=== PATIENT | female | born 1930 | race Caucasian/White ===

== ENCOUNTER 2016-09-13 11:21 | Inpatient (IN) | payer OTHER, MEDICARE ==
[~2016-09-13] VITALS: Ht 154.9 cm; Wt 84.1 kg
[~2016-09-13 11:21] MED LIST: ALBUAER INH; ASPEC81 PO; LVNIS40 SQ; MRLP17 PO; NTRGSL/4 UT; OMEP40CA PO; OXGN; POTA-335 PO; SERT-234 PO
[2016-09-13] MEDS ORDERED: ALBUT/IPRATROP 3MG/0.5MG NEB 3 ML VIAL INH STA (11:53)
[2016-09-13] MEDS ORDERED: METHYLPREDNISOLONE 125 MG VIAL IV STA (11:53)
[2016-09-13] MEDS ORDERED: SODIUM CHLORIDE 0.9% 1000ML 250 ML IV STA (11:53)
--- NOTE | 2016-09-13 12:32 | EMERGENCY ROOM VISIT NOTE ---
History Report prepared by Timmy: Jessica Garcia Under the Supervision of: Dr. Roel Tang M.D. First contact with patient: 11:46 Chief Complaint: SHORTNESS OF BREATH Stated Complaint: COUGH, SOB, COLD SX History of Present Illness The patient is a 86 year old female who presents to the Emergency Room with complaints of persistent SOB for the past 2 days. She was at the [facility] this morning and she was sent to the ED after her O2 sat was 88%. Her daughter says that the patient's O2 sat is usually low. She has oxygen at home for when she needs it, but she usually does not require it. She uses CPAP 4 L at night when she sleeps. The patient states that she always has SOB when she tries to do things, but lately it has become worse. The nasal cannula O2 is currently helping. She has had a non productive cough and congestion. She denies any fever, vomiting, diarrhea, or chest pain. She has not had pneumonia before. She has had bronchitis before. She has an inhaler at home. The patient has had her flu shot. Source of History: patient, family Onset: 2 days ago Position: other (global) Quality: other (SOB) Timing: other (persistent) Modifying Factors (Worsening): exertion Associated Symptoms: + cough, No chest pain, No diarrhea, No fevers, No vomiting Note: Pt reports congestion. Review of Systems See HPI for pertinent positives & negatives. A total of 10 systems reviewed and were otherwise negative. Past Medical & Surgical Medical Problems: (1) Ambulatory dysfunction (2) Anxiety (3) Anxiety State Nos (4) CAD (coronary artery disease) (5) Congestive Heart Failure Nos (6) Coronary Atherosclerosis Of [place] Coronary Vessel (7) Depression (8) Depressive Disorder Nec (9) Dyslipidemia (10) GERD (gastroesophageal reflux disease) (11) GERD (gastroesophageal reflux disease) (12) History of pacemaker (13) HTN (hypertension) (14) Hyperlipidemia Nec/Nos (15) Hypertension Nos (16) Hypertension Nos (17) Morbid Obesity (18) Obstructive Sleep Apnea (Adult) (Pediatric) (19) Old Myocardial Infarct (20) Paroxysmal atrial fibrillation (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 Social History Smoking Status: Never Smoker Drug Use: none Marital Status: Occupation Status: retired Current/Historical Medications Scheduled Amlodipine (Norvasc), 10 MG PO DAILY Atorvastatin (Lipitor), 1 TAB PO QAM Furosemide (Lasix), 40 MG PO QAM Lisinopril (Lisinopril), 20 MG PO DAILY Metoprolol Succinate (Toprol Xl), 1 TAB PO DAILY Oxygen (Oxygen), 4 LITERS NA HS Potassium Chloride (Micro-K Ext Rel), 20 MEQ PO DAILY Sertraline (Zoloft), 50 MG PO QID Scheduled PRN Albuterol Sulfate (Proventil Hfa), 2 PUFFS INH QID PRN for Shortness of Breath Clonazepam (Klonopin), 1 TAB PO 5XD PRN for Anxiety Mirtazapine Soltab (Remeron Soltab), 15 MG PO HS PRN for Sleep Nitroglycerin (Nitrostat), 0.4 MG UT UD PRN for Chest Pain Omeprazole (Prilosec), 40 MG PO DAILY PRN for Dyspepsia Oxycodone Ir (Roxicodone Ir), 5 MG PO Q4H PRN for Pain Allergies Coded Allergies: Promethazine (Verified Allergy, Intermediate, SHORTNESS OF BREATH, 09/13/16) Respiratory depression Salicylates (Verified Allergy, Unknown, PT WAS ON ASA PRIOR TO ADMIT., 09/13) Simvastatin (Verified Allergy, Unknown, 09/13/16) Physical Exam Vital Signs Date Time Temp Pulse Resp B/P Pulse Ox O2 Delivery O2 Flow Rate FiO2 09/13/16 13:30 60 18 118/73 97 Nebulizer 7.0 09/13/16 12:04 67 09/13/16 11:58 Nasal Cannula 2.0 94 09/13/16 11:51 64 16 115/94 95 Nasal Cannula 2.0 09/13/16 11:48 93 Nasal Cannula 2.0 09/13/16 11:48 89 Room Air 09/13/16 11:23 36.4 90 18 133/78 87 Room Air Physical Exam GENERAL: Patient is in no acute distress. HEENT: No acute trauma, normocephalic atraumatic, mucous membranes moist, mild nasal congestion, no scleral icterus. NECK: No stridor, no adenopathy, no meningismus, trachea is midline. LUNGS: Decreased breath sounds bilaterally, no wheezes, no rhonchi, breath sounds equal. No respiratory distress. HEART: Without murmurs gallops or rubs, regular rate and rhythm. ABDOMEN: Soft, nontender, bowel sounds positive, no hernias, no peritonitis. EXTREMITIES: No cyanosis or edema, full range of motion of all the joints without pain or difficulty, no signs for acute trauma. NEUROLOGIC: Oriented x 3, no acute motor or sensory deficits, no focal weakness. SKIN: No rash, no jaundice, no diaphoresis. Medical Decision & Procedures ER Provider Diagnostic Interpretation: X-ray results as stated below per interpretation by me and the radiologist: CHEST ONE VIEW PORTABLE CLINICAL HISTORY: EVALUATE RESPIRATORY DISTRESS. DYSPNEA COMPARISON STUDY: 04/11/2016 FINDINGS: Poor inspiratory volumes. Bipolar cardiac pacemaker. Possible minimal interstitial infiltrate left base. Lungs otherwise appear clear. IMPRESSION: Possible interstitial infiltrate left base. Otherwise negative study Electronically signed by: Mario Mccaryt M.D. 09/13/2016 12:38 PM Dictated Date/Time: 09/13/2016 12:38 PM Laboratory Results 09/13/16 12:15 Red Blood Count 4.18, Mean Corpuscular Volume 92.6, Mean Corpuscular Hemoglobin 31.3, Mean Corpuscular Hemoglobin Concent 33.9, Mean Platelet Volume 10.5, Neutrophils (%) (Auto) 74.4, Lymphocytes (%) (Auto) 12.4, Monocytes (%) (Auto) 11.5, Eosinophils (%) (Auto) 1.3, Basophils (%) (Auto) 0.2, Neutrophils # (Auto ) 6.12, Lymphocytes # (Auto) 1.02, Monocytes # (Auto) 0.95, Eosinophils # (Auto ) 0.11, Basophils # (Auto) 0.02 09/13/16 12:15 Test 09/13/16 12:15 White Blood Count 8.24 K/uL (4.8-10.8) Red Blood Count 4.18 M/uL (4.2-5.4) Hemoglobin 13.1 g/dL (12.0-16.0) Hematocrit 38.7 % (37-47) Mean Corpuscular Volume 92.6 fL (80-100) Mean Corpuscular Hemoglobin 31.3 pg (25-34) Mean Corpuscular Hemoglobin Concent 33.9 g/dl (32-36) Platelet Count 175 K/uL (130-400) Mean Platelet Volume 10.5 fL (7.4-10.4) Neutrophils (%) (Auto) 74.4 % Lymphocytes (%) (Auto) 12.4 % Monocytes (%) (Auto) 11.5 % Eosinophils (%) (Auto) 1.3 % Basophils (%) (Auto) 0.2 % Neutrophils # (Auto) 6.12 K/uL (1.4-6.5) Lymphocytes # (Auto) 1.02 K/uL (1.2-3.4) Monocytes # (Auto) 0.95 K/uL (0.11-0.59) Eosinophils # (Auto) 0.11 K/uL (0-0.5) Basophils # (Auto) 0.02 K/uL (0-0.2) RDW Standard Deviation 44.2 fL (36.4-46.3) RDW Coefficient of Variation 13.1 % (11.5-14.5) Immature Granulocyte % (Auto) 0.2 % Immature Granulocyte # (Auto) 0.02 K/uL (0.00-0.02) Prothrombin Time 10.7 SECONDS (9.0-12.0) Prothromb Time International Ratio 1.0 (0.9-1.1) Activated Partial Thromboplast Time 23.0 SECONDS (21.0-31.0) Partial Thromboplastin Ratio 0.9 Anion Gap 10.0 mmol/L (3-11) Est Creatinine Clear Calc Drug Dose 43.1 ml/min Estimated GFR () 64.9 Estimated GFR (Non- 56.0 BUN/Creatinine Ratio 17.8 (10-20) Calcium Level 8.2 mg/dl (8.5-10.1) Total Bilirubin 0.4 mg/dl (0.2-1) Aspartate Amino Transf (AST/SGOT) 20 U/L (15-37) Alanine Aminotransferase (ALT/SGPT) 15 U/L (12-78) Alkaline Phosphatase 128 U/L (45-117) Troponin I 0.033 ng/ml (0-0.045) Total Protein 7.0 gm/dl (6.4-8.2) Albumin 3.7 gm/dl (3.4-5.0) Globulin 3.3 gm/dl (2.5-4.0) Albumin/Globulin Ratio 1.1 (0.9-2) Influenza Type A Antigen Neg for Influ A (NEG) Influenza Type B Antigen Neg for Influ B (NEG) Laboratory results reviewed by me. Medications Administered Medications (Trade) Dose Ordered Sig/James Route Start Time Stop Time Status Last Admin Dose Admin Sodium Chloride (Nss 1000ml) 250 ml @ 999 mls/hr Q16M STAT IV 09/13/16 11:53 09/13/16 12:08 DC 09/13/16 13:30 999 MLS/HR Albuterol/ Ipratropium (Duoneb) 3 ml NOW STAT INH 09/13/16 11:53 09/13/16 11:56 DC 09/13/16 13:29 3 ML Methylprednisolone Sodium Succinate (Solu-Medrol IV) 80 mg NOW STAT IV 09/13/16 11:53 09/13/16 11:56 DC 09/13/16 13:29 80 MG Levofloxacin (Levaquin / D5W) 750 mg NOW STAT IV 09/13/16 12:46 09/13/16 12:47 DC 09/13/16 13:30 750 MG ECG Indication: SOB/dyspnea Rate (beats per minute): 60 Rhythm: other (atrial pacemaker) Findings: no acute ischemic change, no ectopy, other (old inferior infarct, possible old anterior infarct) ED Course 1147: The patient was evaluated in room B6. A complete history and physical exam was performed. 1153: Solu-Medrol IV 80 mg IV, Duoneb 3 ml INH, NSS 250 ml @ 999 mls/hr IV. 1246: Levofloxacin 750 mg IV. 1259: Upon reexamination the patient is resting comfortably. I discussed results and treatment plan with the patient. She verbalizes agreement and understanding. The patient will be evaluated for further management. 1321: I discussed the patient's case with Brenda Munoz PA-C [facility] Hospitalist service. The patient will be evaluated for further management. Medical Decision Differential diagnoses: pneumonia, bronchitis, CHF, exacerbation of COPD, anemia , electrolyte imbalance, cardiac ischemia, influenza. There is no leukocytosis or concerning anemia. No significant electrolyte abnormality, kidney failure or hepatitis. EKG shows an atrial pacemaker, no acute ischemia. Cardiac enzyme testing times one is not consistent with acute cardiac injury. Influenza testing is negative. Chest film shows a left lower lung infiltrate, no pneumothorax or CHF. Blood cultures are pending. The patient presents with cough, congestion and increasing dyspnea. She has an underlying history of COPD. She received a DuoNeb, IV Solu-Medrol and IV Levaquin. As she was hypoxic, she was placed on nasal cannula oxygen. Given her findings, admission/observation is warranted. I spoke to the patient and case management. The on-call hospitalist was consulted. Consults Time Called: 1302 Consulting Physician: RAJWINDER Bhatt hospitalist service Returned Call: 1321 Discussed the patient's case. The patient will be evaluated for further management. Impression Primary Impression: Hypoxia Additional Impressions: SOB (shortness of breath) Pneumonia Scribe Attestation The scribe's documentation has been prepared under my direction and personally reviewed by me in its entirety. I confirm that the note above accurately reflects all work, treatment, procedures, and medical decision making performed by me. Departure Information Dispostion Being Evaluated By Hospitalist Referrals Baltazar Strong M.D. (PCP) Patient Instructions My [facility] Problem Qualifiers
[2016-09-13 12:35] LABS: BASO % 0.2 %; BASO ABS # 0.02 K/uL (0-0.2); COMPLETE YES; EOS % 1.3 %; HEMATOCRIT 38.7 % (37-47); IG% 0.2 %; LYMPH % 12.4 %; LYMPH ABS # 1.02 K/uL (1.2-3.4); MEAN CELL VOLUME 92.6 fL (80-100); MEAN CORPUSCULAR HEMOGLOBIN 31.3 pg (25-34); MEAN CORPUSCULAR HGB CONC 33.9 g/dl (32-36); MEAN PLATELET VOLUME 10.5 fL (7.4-10.4); MONO % 11.5 %; NEUT % 74.4 %; PLATELET COUNT 175 K/uL (130-400); RED BLOOD COUNT 4.18 M/uL (4.2-5.4); WHITE BLOOD COUNT 8.24 K/uL (4.8-10.8)
--- NOTE | 2016-09-13 12:40 | DIAGNOSTIC IMAGING REPORT ---
CHEST ONE VIEW PORTABLE CLINICAL HISTORY: EVALUATE RESPIRATORY DISTRESS. DYSPNEA COMPARISON STUDY: 04/11/2016 FINDINGS: Poor inspiratory volumes. Bipolar cardiac pacemaker. Possible minimal interstitial infiltrate left base. Lungs otherwise appear clear. IMPRESSION: Possible interstitial infiltrate left base. Otherwise negative study Electronically signed by: Mario Mccarty M.D. 09/13/2016 12:38 PM Dictated Date/Time: 09/13/2016 12:38 PM
[2016-09-13 12:46] LABS: PARTIAL THROMBOPLASTIN RATIO 0.9; PROTHROMBIN TIME (PATIENT) 10.7 SECONDS (9.0-12.0)
[2016-09-13] MEDS ORDERED: LEVAQUIN 750MG / 150ML D5W IV STA (12:46)
[2016-09-13 12:48] LABS: BUN/CREATININE RATIO 17.8 (10-20); CALCIUM 8.2 mg/dl (8.5-10.1); CREATININE 0.92 mg/dl (0.60-1.20)
[2016-09-13 12:53] LABS: ALB/GLOB RATIO 1.1 (0.9-2)
[2016-09-13] MEDS ORDERED: ONDANSETRON INJ 2 MG/ML 2 ML VIAL IV PRN (14:00)
[2016-09-13] MEDS ORDERED: ACETAMINOPHEN 325 MG TAB PO PRN (14:00)
[2016-09-13] MEDS ORDERED: LEVALBUTEROL/IPRATROPIUM NEB INH PRN (14:15)
[2016-09-13] MEDS ORDERED: OXYCODONE HCL IR 5 MG TAB (IMMEDIATE RELEASE) PO PRN (14:15)
[2016-09-13] MEDS ORDERED: NITROGLYCERIN 0.4 MG SL PER TAB CHARGE UT PRN (14:15)
[2016-09-13] MEDS ORDERED: MIRTAZAPINE TAB 15 MG TAB PO PRN (14:15)
[2016-09-13] MEDS ORDERED: CLONAZEPAM 0.5 MG TAB PO PRN ×2 (14:15→17:44)
--- NOTE | 2016-09-13 14:44 | History and Physical ---
History & Physical Date & Time of Service: Sep 13, 2016 at 14:16 Chief Complaint: Cough, Sob, Cold Sx Primary Care Physician: Baltazar Strong M.D. History of Present Illness Source: patient, family (daughter at bedside), clinic records This is an 86 year old female with PMH of asthma, interstitial lung disease, sleep apnea on CPAP and nocturnal O2, CAD, tachy brooks syndrome s/p pacemaker, PAF not on anticoagulation, HTN, HL, and other problems listed below who presents to the ED for shortness of breath. Pt follows with Dr. Strong for primary care and Dr. Lee for pulmonology. Pt's daughter states patient has had a cough and yesterday developed a "cold" with sore throat, raspy voice, increased rhinorrhea, chills. Daughter states cough is wet sounding but not expectorating sputum. Since yesterday has dyspnea on exertion when making the bed etc. Patient was seen in [facility] urgent care today and found to have O2 sat of 88% and was sent to the ER. Pt states breathing is improved after neb treatment. Daughter reports increased urinary incontinence. Patient denies fever , ear pain, sinus pain, ARCHIBALD, aspiration, chest pain, abdominal pain, N/V/D, dysuria, frequency, edema, calf pain, confusion. Has been ambulating with walker and L knee immobilizer. No recent falls. Patient lives with daughter and son-in-law who has been sick with URI symptoms. No recent antibiotics, steroids , hospitalization. Past Medical/Surgical History Medical Problems: (1) Anxiety Status: Chronic (2) Anxiety State Nos Status: Chronic (3) CAD (coronary artery disease) Status: Chronic (4) Congestive Heart Failure Nos Status: Chronic (5) Coronary Atherosclerosis Of [place] Coronary Vessel Status: Chronic (6) Depression Status: Chronic (7) Depressive Disorder Nec Status: Chronic (8) Dyslipidemia Status: Chronic (9) GERD (gastroesophageal reflux disease) Status: Chronic (10) GERD (gastroesophageal reflux disease) Status: Chronic (11) History of pacemaker Status: Chronic (12) HTN (hypertension) Status: Chronic (13) Hyperlipidemia Nec/Nos Status: Chronic (14) Hypertension Nos Status: Chronic (15) Hypertension Nos Status: Chronic (16) Morbid Obesity Status: Chronic (17) Obstructive Sleep Apnea (Adult) (Pediatric) Status: Chronic (18) Old Myocardial Infarct Status: Chronic (19) Paroxysmal atrial fibrillation Status: Chronic (20) Sleep apnea Permanent Comment: on CPAP HS Status: Chronic Surgical Problems: (1) Cardiac Pacemaker In Situ Status: Chronic (2) Hip joint replacement status Status: Chronic (3) History of carpal tunnel surgery Permanent Comment: bilateral Status: Resolved (4) History of total right hip arthroplasty Permanent Comment: january 2010 Status: Resolved (5) Hx of total knee arthroplasty Permanent Comment: bilateral; L TKA 1993 and R TKA 1998 Status: Resolved (6) Knee Joint Replacement Status Status: Chronic (7) Previous back surgery Permanent Comment: HNP excision 1962 Status: Resolved Social History Smoking Status: Never Smoker Alcohol Use: none Housing status: lives with family (daughter and son in law) Occupational Status: retired Immunizations History of Influenza Vaccine: No Influenza Vaccine Date: Apr 09, 2009 History of Tetanus Vaccine?: No History of Pneumococcal: No Pneumococcal Date: Apr 09, 2009 History of Hepatitis B Vaccine: No Multi-Drug Resistant Organisms History of MDRO: No Allergies Coded Allergies: Promethazine (Verified Allergy, Intermediate, SHORTNESS OF BREATH, 09/13/16) Respiratory depression Salicylates (Verified Allergy, Unknown, PT WAS ON ASA PRIOR TO ADMIT., 09/13) Simvastatin (Verified Allergy, Unknown, 09/13/16) Home Medications Scheduled Amlodipine (Norvasc), 10 MG PO DAILY Atorvastatin (Lipitor), 1 TAB PO QAM Furosemide (Lasix), 40 MG PO QAM Lisinopril (Lisinopril), 20 MG PO DAILY Metoprolol Succinate (Toprol Xl), 1 TAB PO DAILY Oxygen (Oxygen), 4 LITERS NA HS Potassium Chloride (Micro-K Ext Rel), 20 MEQ PO DAILY Sertraline (Zoloft), 50 MG PO QID Scheduled PRN Albuterol Sulfate (Proventil Hfa), 2 PUFFS INH QID PRN for Shortness of Breath Clonazepam (Klonopin), 1 TAB PO 5XD PRN for Anxiety Mirtazapine Soltab (Remeron Soltab), 15 MG PO HS PRN for Sleep Nitroglycerin (Nitrostat), 0.4 MG UT UD PRN for Chest Pain Omeprazole (Prilosec), 40 MG PO DAILY PRN for Dyspepsia Oxycodone Ir (Roxicodone Ir), 5 MG PO Q4H PRN for Pain Review of Systems Constitutional: + chills, No fever, No weakness Eyes: No worsening of vision ENT: + nasal symptoms, + sore throat, No problem reported (no ear ache, sinus pain), No trouble swallowing Respiratory: + cough, + dyspnea on exertion, No sputum Cardiovascular: + palpitations (occasional, no increase from baseline), No chest pain, No edema Abdomen: No diarrhea, No nausea, No pain, No vomiting Musculoskeletal: + problem reported (chronic back pain, takes oxycodone PRN), No calf pain Genitourinary - Female: + urinary incontinence (increased from baseline), No dysuria, No urinary frequency Neurologic: No problem reported (no ARCHIBALD) Integumentary: No new/changing skin lesions, No rash Physical Exam Vital Signs Date Time Temp Pulse Resp B/P Pulse Ox O2 Delivery O2 Flow Rate FiO2 09/13/16 13:30 60 18 118/73 97 Nebulizer 7.0 09/13/16 12:04 67 09/13/16 11:58 Nasal Cannula 2.0 94 09/13/16 11:51 64 16 115/94 95 Nasal Cannula 2.0 09/13/16 11:48 93 Nasal Cannula 2.0 09/13/16 11:48 89 Room Air 09/13/16 11:23 36.4 90 18 133/78 87 Room Air General Appearance: WD/WN, no apparent distress, + pertinent finding (pleasant alert elderly female, not in distress) Head: normocephalic, atraumatic Eyes: normal inspection, PERRL, sclerae normal ENT: hearing grossly normal, TMs normal, pharynx normal Neck: supple, trachea midline Respiratory/Chest: no respiratory distress, no accessory muscle use, + rales ( left base), + wheezing (few end expiratory wheezes), + pertinent finding ( saturating low 90's on 2 liters NC) Cardiovascular: regular rate, rhythm, normal peripheral pulses, + systolic murmur Abdomen/GI: normal bowel sounds, non tender, soft Extremities/Musculoskelatal: no calf tenderness, normal capillary refill, no pedal edema, + pertinent finding (knee immobilizer on LLE) Neurologic/Psych: alert, normal mood/affect, oriented x 3, + pertinent finding (grossly nonfocal) Skin: normal color, warm/dry Diagnostics Laboratory Results Results Past 24 Hours Test 09/13/16 12:15 Range/Units White Blood Count 8.24 4.8-10.8 K/uL Red Blood Count 4.18 4.2-5.4 M/uL Hemoglobin 13.1 12.0-16.0 g/dL Hematocrit 38.7 37-47 % Mean Corpuscular Volume 92.6 80-100 fL Mean Corpuscular Hemoglobin 31.3 25-34 pg Mean Corpuscular Hemoglobin Concent 33.9 32-36 g/dl Platelet Count 175 130-400 K/uL Mean Platelet Volume 10.5 7.4-10.4 fL Neutrophils (%) (Auto) 74.4 % Lymphocytes (%) (Auto) 12.4 % Monocytes (%) (Auto) 11.5 % Eosinophils (%) (Auto) 1.3 % Basophils (%) (Auto) 0.2 % Neutrophils # (Auto) 6.12 1.4-6.5 K/uL Lymphocytes # (Auto) 1.02 1.2-3.4 K/uL Monocytes # (Auto) 0.95 0.11-0.59 K/uL Eosinophils # (Auto) 0.11 0-0.5 K/uL Basophils # (Auto) 0.02 0-0.2 K/uL RDW Standard Deviation 44.2 36.4-46.3 fL RDW Coefficient of Variation 13.1 11.5-14.5 % Immature Granulocyte % (Auto) 0.2 % Immature Granulocyte # (Auto) 0.02 0.00-0.02 K/uL Prothrombin Time 10.7 9.0-12.0 SECONDS Prothromb Time International Ratio 1.0 0.9-1.1 Activated Partial Thromboplast Time 23.0 21.0-31.0 SECONDS Partial Thromboplastin Ratio 0.9 Sodium Level 143 136-145 mmol/L Potassium Level 4.0 3.5-5.1 mmol/L Chloride Level 107 98-107 mmol/L Carbon Dioxide Level 26 21-32 mmol/L Anion Gap 10.0 3-11 mmol/L Blood Urea Nitrogen 16 7-18 mg/dl Creatinine 0.92 0.60-1.20 mg/dl Est Creatinine Clear Calc Drug Dose 43.1 ml/min Estimated GFR () 64.9 Estimated GFR (Non- 56.0 BUN/Creatinine Ratio 17.8 10-20 Random Glucose 101 70-99 mg/dl Calcium Level 8.2 8.5-10.1 mg/dl Total Bilirubin 0.4 0.2-1 mg/dl Aspartate Amino Transf (AST/SGOT) 20 15-37 U/L Alanine Aminotransferase (ALT/SGPT) 15 12-78 U/L Alkaline Phosphatase 128 45-117 U/L Troponin I 0.033 0-0.045 ng/ml Total Protein 7.0 6.4-8.2 gm/dl Albumin 3.7 3.4-5.0 gm/dl Globulin 3.3 2.5-4.0 gm/dl Albumin/Globulin Ratio 1.1 0.9-2 Influenza Type A Antigen Neg for Influ A NEG Influenza Type B Antigen Neg for Influ B NEG Microbiology Results 09/13/16 Blood Culture, Received Pending 09/13/16 Blood Culture, Received Pending Diagnostic Radiology CHEST ONE VIEW PORTABLE CLINICAL HISTORY: EVALUATE RESPIRATORY DISTRESS. DYSPNEA COMPARISON STUDY: 04/11/2016 FINDINGS: Poor inspiratory volumes. Bipolar cardiac pacemaker. Possible minimal interstitial infiltrate left base. Lungs otherwise appear clear. IMPRESSION: Possible interstitial infiltrate left base. Otherwise negative study EKG atrial paced rhythm with prolonged AV conduction, possible old inferior infarct , possible anterior infarct, no significant change from prior EKG as confirmed by supervisor instant potato processing read, qtc+ 430 Impression Assessment and Plan ASTHMA EXACERBATION With acute on chronic hypoxia (desaturated to 87% on RA in ER; usually only on nocturnal O2) Secondary to community acquired pneumonia CXR shows possible left base infiltrate Has underlying asthma, interstitial lung disease, and sleep apnea No evidence of sepsis- afebrile, HR and BP stable, no leukocytosis Treated with Levaquin, Solu-Medrol, Duoneb in ER Influenza antigen neg; check Influenza PCR Blood cultures pending; check sputum culture Continue empiric Levaquin, Xopenex-Atrovent nebs, PO prednisone Supplemental O2 per protocol and CPAP HS INCREASED URINARY INCONTINENCE Check UA and urine culture if indicated PAROXYSMAL ATRIAL FIBRILLATION TACHY BROOKS SYNDROME S/P PACEMAKER Currently in paced rhythm, rate controlled Continue metoprolol Not on anticoagulation due to fall risk per cardiology note CAD Stable Continue statin, beta meg, AVANI-I Aspirin intolerance as per records HYPERTENSION Stable Continue amlodipine, lisinopril, metoprolol, furosemide GRADE I DIASTOLIC DYSFUNCTION Appears euvolemic Continue furosemide 40 mg daily CHRONIC BACK PAIN On chronic oxycodone PRN DEPRESSION/ ANXIETY Continue sertraline, PRN Klonopin CODE STATUS DNR per my discussion with the patient DVT PROPHYLAXIS Lovenox SQ DISPOSITION Lives at home with daughter Jeni; discussed with her at bedside Follows with Dr. Strong for primary care Patient seen in collaboration with Dr. Klein. Please see her addendum. I have seen and examined this patient and agree with the assessment and plan above. Ms. Judge is doing better since the ER, she is still requiring oxygen which is reserved for nighttime only at home typically with CPAP. She is not tachypneic or febrile and appears comfortable. Vitals are stable, and her lungs are clear to auscultation with only the faintest crackles at the deep bases. No wheezing heard. Cont Levaquin and agree with switch to PO prednisone for now with h/o COPD and current illness with wheezing heard earlier. Patient and daughter very concerned that she won't get her clonazepam and has asked me to schedule this. They verbalized understanding regarding the risks of hospital delirium. Additionally, she reports that her urinary incontinence is chronic and there is no issue with fevers, chills, flank pain, dysuria, hematuria or urinary urgency. Alvina Klein, DO Level of Care Telemetry Resuscitation Status DO NOT RESUSCITATE VTE Prophylaxis VTE Risk Assessment Done? Y/N: Yes Risk Level: Moderate Given or contraindicated: Enoxaparin (Lovenox)SQ
[2016-09-13] MEDS ORDERED: LEVALBUTEROL/IPRATROPIUM NEB INH SCH (15:00)
[2016-09-13] MEDS ORDERED: LEVALBUTEROL 0.63MG/3 ML NEB INH PRN (16:30)
[2016-09-13] MEDS ORDERED: IPRATROPIUM BROMIDE NEB SOLN 0.02% 2.5 ML VIAL INH PRN (16:30)
[2016-09-13 17:00] VITALS: BP 114/66; PULSE 72; TEMP 36.9; Ht 154.9 cm; Wt 84.1 kg
[2016-09-13] MEDS: SERTRALINE HCL 50 MG TAB PO SCH ×2 (17:00→20:06)
[2016-09-13 19:08] VITALS: BP 112/66; PULSE 68; TEMP 36.5; O2SAT 92
[2016-09-13 20:00] VITALS: O2SAT 92
[2016-09-13] MEDS: ENOXAPARIN 40 MG/0.4 ML SYR SQ SCH (20:08)
[2016-09-13] MEDS: CLONAZEPAM 0.5 MG TAB PO SCH (20:09)
[2016-09-13 20:10] LABS: MANUAL MICROSCOPIC REQUIRED? NO; REVIEW REQ? NO; URINE APPEARANCE CLOUDY (CLEAR); URINE BILIRUBIN NEG (NEG); URINE COLOR YELLOW; URINE NITRITE NEG (NEG); URINE SPECIFIC GRAVITY 1.009 (1.000-1.030); UROBILINOGEN NEG (NEG); ZZUR CULT IF INDIC CLEAN CATCH NO
[2016-09-13 20:31] VITALS: PULSE 65; O2SAT 95
[2016-09-13] MEDS: IPRATROPIUM BROMIDE NEB SOLN 0.02% 2.5 ML VIAL INH PRN (20:31)
[2016-09-13] MEDS: LEVALBUTEROL 1.25MG/3ML NEB INH PRN (20:31)
[2016-09-13 20:34] VITALS: PULSE 65; O2SAT 95
[2016-09-13 20:41] VITALS: PULSE 65; O2SAT 95
[2016-09-13] MEDS ORDERED: IPRATROPIUM BROMIDE NEB SOLN 0.02% 2.5 ML VIAL INH SCH (21:00)
[2016-09-13] MEDS ORDERED: LEVALBUTEROL 1.25MG/0.5ML NEB INH SCH (21:00)
[2016-09-13 21:26] LABS: INFLUENZA A PCR Neg for Influ A (NEG); INFLUENZA B PCR Neg for Influ B (NEG)
[2016-09-14] VITALS (9 sets, daily range): BP systolic 93–143; BP diastolic 53–82; PULSE 56–77; TEMP 36.2–36.9; O2SAT 91–97
[2016-09-14] MEDS: POTASSIUM CHLORIDE 20 MEQ TABCR PO SCH (08:00)
[2016-09-14] MEDS: ATORVASTATIN 40 MG TAB PO SCH (08:01)
[2016-09-14] MEDS: FUROSEMIDE 40 MG TAB PO SCH (08:01)
[2016-09-14] MEDS: AMLODIPINE BESYLATE 5 MG TAB PO SCH (08:01)
[2016-09-14] MEDS: LISINOPRIL 20 MG TAB PO SCH (08:02)
[2016-09-14] MEDS: METOPROLOL SUCC 25MG EXT REL TAB PO SCH (08:02)
[2016-09-14] MEDS: PANTOprazole SOD 40 MG TAB PO SCH (08:02)
[2016-09-14] MEDS: SERTRALINE HCL 50 MG TAB PO SCH ×4 (08:03→21:44)
[2016-09-14] MEDS: CLONAZEPAM 0.5 MG TAB PO SCH (08:04)
[2016-09-14] MEDS: IPRATROPIUM BROMIDE NEB SOLN 0.02% 2.5 ML VIAL INH PRN (09:54)
[2016-09-14] MEDS: LEVALBUTEROL 1.25MG/3ML NEB INH PRN (09:54)
--- NOTE | 2016-09-14 18:41 | Progress Note ---
Internal Med Progress Note Date of Service: Sep 14, 2016. Provider Documentation: SUBJECTIVE: Patient is lying in her bed in no apparent distress. Feeling and breathing better. Occasional dry cough. Remains afebrile. Wants her home dose of Clonazepam. OBJECTIVE: Vital Signs-as noted below Examination General Appearance: Peasant alert elderly female, WD/WN, In no apparent distress, Head: normocephalic, atraumatic Eyes: normal inspection, PERRL, sclerae normal ENT: hearing grossly normal, TMs normal, pharynx normal Neck: supple, trachea midline Respiratory/Chest: no respiratory distress, no accessory muscle use, Fine rales left base), few end expiratory wheezes Cardiovascular: regular rate, rhythm, normal peripheral pulses, + systolic murmur Abdomen/GI: normal bowel sounds, non tender, soft Extremities/Musculoskeletal: no calf tenderness, normal capillary refill, no pedal edema, knee immobilizer on LLE Neurologic/Psych: alert, normal mood/affect, oriented x 3, Grossly nonfocal. Skin: normal color, warm/dry Lab data as noted below. ASSESSMENT & PLAN: Asthma Exacerbation with Pneumonia: Came in with acute on chronic hypoxia ( desaturated to 87% on RA in ER; usually only on nocturnal O2) Secondary to community acquired pneumonia. CXR shows possible left base infiltrate Has underlying asthma, interstitial lung disease, and sleep apnea. No evidence of sepsis- afebrile, HR and BP stable, no leukocytosis -Contique Levaquin (Day # 3). -Prednisone is being tapered gradually. -Bronchodilations as needed -Influenza antigen & Influenza PCR are negative. 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 Code Status: DNR per my discussion with the patient upon admission. DVT Prophylaxis: Sq Lovenox Disposition: Discharge once is clinically stable. Lives at home with daughter Jeni; discussed with her at bedside Follows with Dr. Strong for primary care Vital Signs: Date Time Temp Pulse Resp B/P Pulse Ox O2 Delivery O2 Flow Rate FiO2 09/15/16 08:00 Nasal Cannula 3.0 09/15/16 07:45 36.7 61 18 138/74 92 Room Air 09/15/16 07:30 61 138/74 09/15/16 00:15 CPAP 09/14/16 23:01 36.9 67 18 118/75 96 CPAP 09/14/16 21:40 70 95 3.0 09/14/16 19:35 36.6 63 22 113/70 92 Nasal Cannula 2.0 09/14/16 16:00 Nasal Cannula 2.0 09/14/16 15:47 36.6 67 20 106/55 95 Nasal Cannula 2.0 Lab Results: Results Past 24 Hours Test 09/15/16 06:45 Range/Units White Blood Count 8.41 4.8-10.8 K/uL Red Blood Count 4.10 4.2-5.4 M/uL Hemoglobin 12.8 12.0-16.0 g/dL Hematocrit 38.8 37-47 % Mean Corpuscular Volume 94.6 80-100 fL Mean Corpuscular Hemoglobin 31.2 25-34 pg Mean Corpuscular Hemoglobin Concent 33.0 32-36 g/dl Platelet Count 168 130-400 K/uL Mean Platelet Volume 10.8 7.4-10.4 fL Neutrophils (%) (Auto) 66.3 % Lymphocytes (%) (Auto) 18.5 % Monocytes (%) (Auto) 14.9 % Eosinophils (%) (Auto) 0.1 % Basophils (%) (Auto) 0.1 % Neutrophils # (Auto) 5.57 1.4-6.5 K/uL Lymphocytes # (Auto) 1.56 1.2-3.4 K/uL Monocytes # (Auto) 1.25 0.11-0.59 K/uL Eosinophils # (Auto) 0.01 0-0.5 K/uL Basophils # (Auto) 0.01 0-0.2 K/uL RDW Standard Deviation 47.1 36.4-46.3 fL RDW Coefficient of Variation 13.5 11.5-14.5 % Immature Granulocyte % (Auto) 0.1 % Immature Granulocyte # (Auto) 0.01 0.00-0.02 K/uL Sodium Level 146 136-145 mmol/L Potassium Level 3.4 3.5-5.1 mmol/L Chloride Level 110 98-107 mmol/L Carbon Dioxide Level 29 21-32 mmol/L Anion Gap 7.0 3-11 mmol/L Blood Urea Nitrogen 25 7-18 mg/dl Creatinine 0.96 0.60-1.20 mg/dl Est Creatinine Clear Calc Drug Dose 40.6 ml/min Estimated GFR () 61.6 Estimated GFR (Non- 53.2 BUN/Creatinine Ratio 26.4 10-20 Random Glucose 88 70-99 mg/dl Calcium Level 8.4 8.5-10.1 mg/dl
[2016-09-14] MEDS: ENOXAPARIN 40 MG/0.4 ML SYR SQ SCH (21:44)
[2016-09-14] MEDS: CLONAZEPAM 0.5 MG TAB PO PRN (21:45)
[2016-09-15] MEDS ORDERED: OXYCODONE HCL IR 5 MG TAB (IMMEDIATE RELEASE) PO PRN
[2016-09-15 07:19] LABS: BASO % 0.1 %; BASO ABS # 0.01 K/uL (0-0.2); COMPLETE YES; EOS % 0.1 %; HEMATOCRIT 38.8 % (37-47); IG% 0.1 %; LYMPH % 18.5 %; LYMPH ABS # 1.56 K/uL (1.2-3.4); MEAN CELL VOLUME 94.6 fL (80-100); MEAN CORPUSCULAR HEMOGLOBIN 31.2 pg (25-34); MEAN PLATELET VOLUME 10.8 fL (7.4-10.4); MONO % 14.9 %; NEUT % 66.3 %; PLATELET COUNT 168 K/uL (130-400); WHITE BLOOD COUNT 8.41 K/uL (4.8-10.8)
[2016-09-15 07:30] VITALS: BP 138/74; PULSE 61
[2016-09-15] MEDS: METOPROLOL SUCC 25MG EXT REL TAB PO SCH (07:34)
[2016-09-15] MEDS: ATORVASTATIN 40 MG TAB PO SCH (07:34)
[2016-09-15] MEDS: PANTOprazole SOD 40 MG TAB PO SCH (07:34)
[2016-09-15] MEDS: AMLODIPINE BESYLATE 5 MG TAB PO SCH (07:34)
[2016-09-15] MEDS: POTASSIUM CHLORIDE 20 MEQ TABCR PO SCH (07:35)
[2016-09-15] MEDS: FUROSEMIDE 40 MG TAB PO SCH (07:35)
[2016-09-15] MEDS: LISINOPRIL 20 MG TAB PO SCH (07:35)
[2016-09-15 07:45] VITALS: BP 138/74; PULSE 61; TEMP 36.7; O2SAT 92
[2016-09-15 08:09] LABS: BUN/CREATININE RATIO 26.4 (10-20); CALCIUM 8.4 mg/dl (8.5-10.1); CREATININE 0.96 mg/dl (0.60-1.20); POTASSIUM 3.4 mmol/L (3.5-5.1)
[2016-09-15] MEDS ORDERED: POTASSIUM CHLORIDE 20 MEQ TABCR PO ONE (08:45)
[2016-09-15] MEDS: SERTRALINE HCL 50 MG TAB PO SCH ×3 (12:29→20:08)
--- NOTE | 2016-09-15 12:59 | Progress Note ---
Internal Med Progress Note Date of Service: Sep 15, 2016. Provider Documentation: SUBJECTIVE: Patient is lying in her bed in no apparent distress. Feeling and breathing better. Occasional dry cough. Remains afebrile. Feels very anxious as she is worried about her who is in [facility]. C/O Loose BM overnight. No blood in stools. OBJECTIVE: Vital Signs-as noted below Examination General Appearance: Peasant alert elderly female, WD/WN, In no apparent distress, Head: normocephalic, atraumatic Eyes: normal inspection, PERRL, sclerae normal ENT: hearing grossly normal, TMs normal, pharynx normal Neck: supple, trachea midline Respiratory/Chest: no respiratory distress, no accessory muscle use, Fine rales left base), few end expiratory wheezes Cardiovascular: regular rate, rhythm, normal peripheral pulses, + systolic murmur Abdomen/GI: normal bowel sounds, non tender, soft Extremities/Musculoskeletal: no calf tenderness, normal capillary refill, no pedal edema, knee immobilizer on LLE Neurologic/Psych: alert, normal mood/affect, oriented x 3, Grossly nonfocal. Skin: normal color, warm/dry Lab data as noted below. ASSESSMENT & PLAN: Asthma Exacerbation with Pneumonia: Came in with acute on chronic hypoxia ( desaturated to 87% on RA in ER; usually only on nocturnal O2) Secondary to community acquired pneumonia. CXR shows possible left base infiltrate Has underlying asthma, interstitial lung disease, and sleep apnea. No evidence of sepsis- afebrile, HR and BP stable, no leukocytosis -Contique Levaquin (Day # 3). -Prednisone is being tapered gradually. -Bronchodilations as needed -Influenza antigen & Influenza PCR are negative. -Blood cultures negative so far -Supplemental O2 per protocol and CPAP HS Diarrhea: Need to R/O C. Diff -Started Lactobacillus Paroxysmal Atrial Fibrillation: Known Tachy Ritchie Syndrome, S/P PPM.Currently in paced rhythm, rate controlled -Continue Metoprolol -Not on anticoagulation due to fall risk per cardiology note History CAD: Stable -Continue statin, beta meg, AVANI-I -Aspirin intolerance as per records History HTN: Stable -Continue amlodipine, lisinopril, metoprolol, furosemide Grade I Diastolic Dysfunction: Appears euvolemic -Continue furosemide 40 mg daily Chronic Back Pain: On chronic oxycodone PRN History Depression/Anxiety: Continue sertraline, PRN Klonopin as per home doses. Code Status: DNR per my discussion with the patient upon admission. DVT Prophylaxis: Sq Lovenox Disposition: Discharge once is clinically stable. Lives at home with daughter Jeni; discussed with her at bedside Follows with Dr. Strong for primary care Vital Signs: Date Time Temp Pulse Resp B/P Pulse Ox O2 Delivery O2 Flow Rate FiO2 09/15/16 08:00 Nasal Cannula 3.0 09/15/16 07:45 36.7 61 18 138/74 92 Room Air 09/15/16 07:30 61 138/74 09/15/16 00:15 CPAP 09/14/16 23:01 36.9 67 18 118/75 96 CPAP 09/14/16 21:40 70 95 3.0 09/14/16 19:35 36.6 63 22 113/70 92 Nasal Cannula 2.0 09/14/16 16:00 Nasal Cannula 2.0 09/14/16 15:47 36.6 67 20 106/55 95 Nasal Cannula 2.0 Lab Results: Results Past 24 Hours Test 09/15/16 06:45 Range/Units White Blood Count 8.41 4.8-10.8 K/uL Red Blood Count 4.10 4.2-5.4 M/uL Hemoglobin 12.8 12.0-16.0 g/dL Hematocrit 38.8 37-47 % Mean Corpuscular Volume 94.6 80-100 fL Mean Corpuscular Hemoglobin 31.2 25-34 pg Mean Corpuscular Hemoglobin Concent 33.0 32-36 g/dl Platelet Count 168 130-400 K/uL Mean Platelet Volume 10.8 7.4-10.4 fL Neutrophils (%) (Auto) 66.3 % Lymphocytes (%) (Auto) 18.5 % Monocytes (%) (Auto) 14.9 % Eosinophils (%) (Auto) 0.1 % Basophils (%) (Auto) 0.1 % Neutrophils # (Auto) 5.57 1.4-6.5 K/uL Lymphocytes # (Auto) 1.56 1.2-3.4 K/uL Monocytes # (Auto) 1.25 0.11-0.59 K/uL Eosinophils # (Auto) 0.01 0-0.5 K/uL Basophils # (Auto) 0.01 0-0.2 K/uL RDW Standard Deviation 47.1 36.4-46.3 fL RDW Coefficient of Variation 13.5 11.5-14.5 % Immature Granulocyte % (Auto) 0.1 % Immature Granulocyte # (Auto) 0.01 0.00-0.02 K/uL Sodium Level 146 136-145 mmol/L Potassium Level 3.4 3.5-5.1 mmol/L Chloride Level 110 98-107 mmol/L Carbon Dioxide Level 29 21-32 mmol/L Anion Gap 7.0 3-11 mmol/L Blood Urea Nitrogen 25 7-18 mg/dl Creatinine 0.96 0.60-1.20 mg/dl Est Creatinine Clear Calc Drug Dose 40.6 ml/min Estimated GFR () 61.6 Estimated GFR (Non- 53.2 BUN/Creatinine Ratio 26.4 10-20 Random Glucose 88 70-99 mg/dl Calcium Level 8.4 8.5-10.1 mg/dl
[2016-09-15] MEDS ORDERED: LEVOFLOXACIN / D5W 750 MG in PREMIXED IN D5W 150 ML IV SCH (14:00)
[2016-09-15 15:34] VITALS: BP 103/66; PULSE 62; TEMP 36.6; O2SAT 96
[2016-09-15] MEDS: LACTOBACILLUS ACIDOPHILUS (FLORANEX) TAB PO SCH (17:31)
[2016-09-15] MEDS: ENOXAPARIN 40 MG/0.4 ML SYR SQ SCH (20:09)
[2016-09-15 21:17] VITALS: PULSE 84; O2SAT 96
[2016-09-15 23:09] VITALS: BP 111/71; PULSE 72; TEMP 36.7; O2SAT 96
[2016-09-16] VITALS: O2SAT 96
[2016-09-16] MEDS: CLONAZEPAM 0.5 MG TAB PO PRN ×4 (02:29→21:58)
[2016-09-16 07:40] VITALS: BP 122/77; PULSE 60; TEMP 36.6; O2SAT 97
--- NOTE | 2016-09-16 07:43 | Clinical Documentation Query ---
CLINICAL DOCUMENTATION QUERY 86-y/o male who presents with asthma exacerbation in setting of pneumonia. H&P states this patient as having diastolic dysfunction and being on Lasix daily In your clinical opinion is this patient being managed for: (X ) Chronic diastolic (Preserved EF) heart failure treated with daily PO Lasix ( ) Other explanation of clinical findings (Please Explain) ( ) Unable to determine (Please Define) ( ) Need to Discuss ( ) Not Agree The medical record reflects the following clinical findings, treatment, and risk factors. Clinical Indicators: As above Treatment: PO Lasix, Norvasc, Lisinopril, Risk Factors: Age, HTN, AVANI therapy Please clarify and document your clinical opinion in the progress notes and discharge summary. Terms such as "probable", "suspected", "likely", "questionable", "possible", or "still to be ruled out" are acceptable. IF IN AGREEMENT, YOU MUST DOCUMENT ABOVE DIAGNOSTIC STATEMENT IN DAILY PROGRESS NOTES AND DISCHARGE SUMMARY. This document is not part of the patient's record. Thank You, Tom Erwin, RN [phone]
[2016-09-16] MEDS: LISINOPRIL 20 MG TAB PO SCH (08:02)
[2016-09-16] MEDS: ATORVASTATIN 40 MG TAB PO SCH (08:02)
[2016-09-16] MEDS: LACTOBACILLUS ACIDOPHILUS (FLORANEX) TAB PO SCH ×3 (08:02→16:17)
[2016-09-16] MEDS: SERTRALINE HCL 50 MG TAB PO SCH ×4 (08:02→20:52)
[2016-09-16] MEDS: AMLODIPINE BESYLATE 5 MG TAB PO SCH (08:02)
[2016-09-16] MEDS: METOPROLOL SUCC 25MG EXT REL TAB PO SCH (08:02)
[2016-09-16] MEDS: PANTOprazole SOD 40 MG TAB PO SCH (08:03)
[2016-09-16] MEDS: FUROSEMIDE 40 MG TAB PO SCH (08:03)
[2016-09-16] MEDS: POTASSIUM CHLORIDE 20 MEQ TABCR PO SCH (08:03)
[2016-09-16 08:39] LABS: BASO % 0.2 %; BASO ABS # 0.02 K/uL (0-0.2); COMPLETE YES; EOS % 0.1 %; IG% 0.1 %; LYMPH % 18.7 %; LYMPH ABS # 1.54 K/uL (1.2-3.4); MEAN CORPUSCULAR HEMOGLOBIN 30.9 pg (25-34); MEAN CORPUSCULAR HGB CONC 33.3 g/dl (32-36); MEAN PLATELET VOLUME 10.3 fL (7.4-10.4); MONO % 15.6 %; NEUT % 65.3 %; PLATELET COUNT 178 K/uL (130-400); WHITE BLOOD COUNT 8.25 K/uL (4.8-10.8)
[2016-09-16 09:02] LABS: BUN/CREATININE RATIO 26.4 (10-20); CALCIUM 8.2 mg/dl (8.5-10.1); CREATININE 0.97 mg/dl (0.60-1.20); POTASSIUM 3.1 mmol/L (3.5-5.1)
--- NOTE | 2016-09-16 11:25 | Progress Note ---
Internal Med Progress Note Date of Service: Sep 16, 2016. Provider Documentation: SUBJECTIVE: Patient is lying in her bed in no apparent distress. Feeling and breathing better. Occasional dry cough. Remains afebrile. Feels very anxious as she is worried about her who is in [facility]. Continues to have Loose BM overnight. No blood in stools. OBJECTIVE: Vital Signs-as noted below Examination General Appearance: Peasant alert elderly female, WD/WN, In no apparent distress, Head: normocephalic, atraumatic Eyes: normal inspection, PERRL, sclerae normal ENT: hearing grossly normal, TMs normal, pharynx normal Neck: supple, trachea midline Respiratory/Chest: no respiratory distress, no accessory muscle use, Fine rales left base), few end expiratory wheezes Cardiovascular: regular rate, rhythm, normal peripheral pulses, + systolic murmur Abdomen/GI: normal bowel sounds, non tender, soft Extremities/Musculoskeletal: no calf tenderness, normal capillary refill, no pedal edema, knee immobilizer on LLE Neurologic/Psych: alert, normal mood/affect, oriented x 3, Grossly nonfocal. Skin: normal color, warm/dry Lab data as noted below. ASSESSMENT & PLAN: Asthma Exacerbation with Pneumonia: Came in with acute on chronic hypoxia ( desaturated to 87% on RA in ER; usually only on nocturnal O2) Secondary to community acquired pneumonia. CXR shows possible left base infiltrate Has underlying asthma, interstitial lung disease, and sleep apnea. No evidence of sepsis- afebrile, HR and BP stable, no leukocytosis -Contique Levaquin (Day # 4).Will stop tomorrow after 5 days of use. -Prednisone is being tapered gradually. -Bronchodilations as needed -Influenza antigen & Influenza PCR are negative. -Blood cultures negative so far -Supplemental O2 per protocol and CPAP HS Diarrhea: C. Diff remains pending. -Continue Lactobacillus -Started empiric Flagyl. Paroxysmal Atrial Fibrillation: Known Tachy Ritchie Syndrome, S/P PPM.Currently in paced rhythm, rate controlled -Continue Metoprolol -Not on anticoagulation due to fall risk per cardiology note History CAD: Stable -Continue statin, beta meg, AVANI-I -Aspirin intolerance as per records History HTN: Stable -Continue amlodipine, lisinopril, metoprolol, furosemide Grade I Diastolic CHF: Appears euvolemic -Continue furosemide 40 mg daily -Monitor I's & O's. Chronic Back Pain: On chronic oxycodone PRN History Depression/Anxiety: Continue sertraline, PRN Klonopin as per home doses. Code Status: DNR per my discussion with the patient upon admission. DVT Prophylaxis: Sq Lovenox Disposition: Discharge once is clinically stable. Lives at home with daughter Jeni; discussed with her at bedside Follows with Dr. Strong for primary care Vital Signs: Date Time Temp Pulse Resp B/P Pulse Ox O2 Delivery O2 Flow Rate FiO2 09/16/16 08:00 Nasal Cannula 3.0 09/16/16 07:40 36.6 60 18 122/77 97 Nasal Cannula 2.0 09/16/16 00:00 96 Room Air CPAP 09/15/16 23:09 36.7 72 16 111/71 96 CPAP 09/15/16 21:17 84 96 3.0 09/15/16 15:34 36.6 62 16 103/66 96 Lab Results: Results Past 24 Hours Test 09/16/16 08:02 Range/Units White Blood Count 8.25 4.8-10.8 K/uL Red Blood Count 4.30 4.2-5.4 M/uL Hemoglobin 13.3 12.0-16.0 g/dL Hematocrit 40.0 37-47 % Mean Corpuscular Volume 93.0 80-100 fL Mean Corpuscular Hemoglobin 30.9 25-34 pg Mean Corpuscular Hemoglobin Concent 33.3 32-36 g/dl Platelet Count 178 130-400 K/uL Mean Platelet Volume 10.3 7.4-10.4 fL Neutrophils (%) (Auto) 65.3 % Lymphocytes (%) (Auto) 18.7 % Monocytes (%) (Auto) 15.6 % Eosinophils (%) (Auto) 0.1 % Basophils (%) (Auto) 0.2 % Neutrophils # (Auto) 5.38 1.4-6.5 K/uL Lymphocytes # (Auto) 1.54 1.2-3.4 K/uL Monocytes # (Auto) 1.29 0.11-0.59 K/uL Eosinophils # (Auto) 0.01 0-0.5 K/uL Basophils # (Auto) 0.02 0-0.2 K/uL RDW Standard Deviation 45.7 36.4-46.3 fL RDW Coefficient of Variation 13.5 11.5-14.5 % Immature Granulocyte % (Auto) 0.1 % Immature Granulocyte # (Auto) 0.01 0.00-0.02 K/uL Sodium Level 145 136-145 mmol/L Potassium Level 3.1 3.5-5.1 mmol/L Chloride Level 110 98-107 mmol/L Carbon Dioxide Level 27 21-32 mmol/L Anion Gap 8.0 3-11 mmol/L Blood Urea Nitrogen 26 7-18 mg/dl Creatinine 0.97 0.60-1.20 mg/dl Est Creatinine Clear Calc Drug Dose 40.2 ml/min Estimated GFR () 60.9 Estimated GFR (Non- 52.5 BUN/Creatinine Ratio 26.4 10-20 Random Glucose 87 70-99 mg/dl Calcium Level 8.2 8.5-10.1 mg/dl Total Bilirubin 0.4 0.2-1 mg/dl Aspartate Amino Transf (AST/SGOT) 25 15-37 U/L Alanine Aminotransferase (ALT/SGPT) 18 12-78 U/L Alkaline Phosphatase 119 45-117 U/L Total Protein 7.0 6.4-8.2 gm/dl Albumin 3.5 3.4-5.0 gm/dl Globulin 3.5 2.5-4.0 gm/dl Albumin/Globulin Ratio 1.0 0.9-2 Microbiology Results 09/16/16 C.difficile Toxin B Gene (PCR), Received Pending
[2016-09-16] MEDS ORDERED: POTASSIUM CHLORIDE 20 MEQ TABCR PO ONE (11:30)
[2016-09-16] MEDS ORDERED: METRONIDAZOLE 500 MG TAB PO ONE (11:30)
[2016-09-16] MEDS ORDERED: LOPERAMIDE HCL 2 MG CAP PO ONE (13:45)
[2016-09-16 14:03] VITALS: PULSE 61; O2SAT 96
[2016-09-16] MEDS: IPRATROPIUM BROMIDE NEB SOLN 0.02% 2.5 ML VIAL INH PRN (14:03)
[2016-09-16] MEDS: LEVALBUTEROL 1.25MG/3ML NEB INH PRN (14:03)
[2016-09-16 15:46] VITALS: BP 109/72; PULSE 71; TEMP 36.6; O2SAT 92
[2016-09-16] MEDS ORDERED: COUGH DROP (SUGAR FREE) LOZ 24 LOZ/1 BOX PO PRN ×2 (16:45→17:00)
[2016-09-16] MEDS ORDERED: GUAIFENESIN/CODEINE 200MG/20MG 10ML UDC PO PRN (16:45)
[2016-09-16] MEDS ORDERED: COUGH DROP (SUGAR FREE) LOZ 24 LOZ/1 BOX PO ONE (17:00)
[2016-09-16] MEDS ORDERED: GUAIFENESIN/CODEINE 100MG/10MG 5ML UDC PO ONE (17:00)
[2016-09-16] MEDS ORDERED: METRONIDAZOLE 500 MG TAB PO SCH (20:00)
[2016-09-16] MEDS ORDERED: LOPERAMIDE HCL 2 MG CAP PO PRN (20:15)
[2016-09-16] MEDS: ENOXAPARIN 40 MG/0.4 ML SYR SQ SCH (20:53)
[2016-09-16] MEDS: LOPERAMIDE HCL 2 MG CAP PO PRN (20:57)
[2016-09-16 22:17] VITALS: PULSE 75; O2SAT 95
[2016-09-16 23:18] VITALS: BP 125/80; PULSE 61; TEMP 36.4; O2SAT 96
[2016-09-17 07:46] VITALS: BP 120/69; PULSE 62; TEMP 36.6; O2SAT 94
[2016-09-17 08:02] LABS: BASO % 0.5 %; BASO ABS # 0.04 K/uL (0-0.2); COMPLETE YES; EOS % 0.1 %; HEMATOCRIT 40.3 % (37-47); IG% 0.2 %; LYMPH % 20.5 %; LYMPH ABS # 1.81 K/uL (1.2-3.4); MEAN CELL VOLUME 92.9 fL (80-100); MEAN CORPUSCULAR HEMOGLOBIN 30.4 pg (25-34); MEAN CORPUSCULAR HGB CONC 32.8 g/dl (32-36); MEAN PLATELET VOLUME 10.4 fL (7.4-10.4); MONO % 13.3 %; NEUT % 65.4 %; PLATELET COUNT 170 K/uL (130-400); RED BLOOD COUNT 4.34 M/uL (4.2-5.4); WHITE BLOOD COUNT 8.82 K/uL (4.8-10.8)
--- NOTE | 2016-09-17 08:19 | DIAGNOSTIC IMAGING REPORT ---
SINGLE VIEW CHEST CLINICAL HISTORY: Follow-up pneumonia. FINDINGS: An AP, portable, upright chest radiograph is compared to study dated 09/13/2016.The examination is degraded by portable technique, apical lordotic positioning, and patient rotation. A 2-lead cardiac pacemaker is unchanged in position. The heart is enlarged and there is atherosclerotic calcification of the thoracic aorta. The pulmonary vasculature is noncongested. There are low lung volumes and bibasilar atelectasis. Elevation of the right hemidiaphragm is unchanged. No airspace consolidation or large pleural effusion is identified. No pneumothorax is seen. The skeletal structures are osteopenic. Advanced degenerative change is noted in the thoracic spine and left shoulder. IMPRESSION: 1. Cardiomegaly and cardiac pacemaker. There is no radiographic evidence of congestive failure. 2. Low lung volumes and bibasilar atelectasis. No airspace consolidation typical for pneumonia or large pleural effusion is identified. Electronically signed by: Roel Yang M.D. 09/17/2016 8:17 AM Dictated Date/Time: 09/17/2016 8:15 AM
[2016-09-17 08:37] LABS: BUN/CREATININE RATIO 24.1 (10-20); CREATININE 0.96 mg/dl (0.60-1.20); POTASSIUM 3.3 mmol/L (3.5-5.1)
[2016-09-17] MEDS: SERTRALINE HCL 50 MG TAB PO SCH ×4 (09:21→22:05)
[2016-09-17] MEDS: LISINOPRIL 20 MG TAB PO SCH (09:21)
[2016-09-17] MEDS: METOPROLOL SUCC 25MG EXT REL TAB PO SCH (09:21)
[2016-09-17] MEDS: LACTOBACILLUS ACIDOPHILUS (FLORANEX) TAB PO SCH ×3 (09:22→16:23)
[2016-09-17] MEDS: FUROSEMIDE 40 MG TAB PO SCH (09:23)
[2016-09-17] MEDS: PANTOprazole SOD 40 MG TAB PO SCH (09:23)
[2016-09-17] MEDS: POTASSIUM CHLORIDE 20 MEQ TABCR PO SCH (09:23)
[2016-09-17] MEDS: ATORVASTATIN 40 MG TAB PO SCH (09:24)
[2016-09-17] MEDS: AMLODIPINE BESYLATE 5 MG TAB PO SCH (09:24)
[2016-09-17] MEDS: CLONAZEPAM 0.5 MG TAB PO PRN ×3 (09:29→22:07)
[2016-09-17] MEDS ORDERED: NURSING VERBAL MED ORDER ONE (12:45)
[2016-09-17] MEDS ORDERED: LEVOFLOXACIN 750 MG TAB PO SCH (14:00)
[2016-09-17 15:10] VITALS: BP 120/73; PULSE 71; TEMP 36.6; O2SAT 93
--- NOTE | 2016-09-17 19:38 | Progress Note ---
Medicine Progress Note Date & Time of Visit: Sep 17, 2016 at 19:31. Subjective seen resting in bed, comfortable states she feels improved less dyspnea, cough denies chest pain, dizziness, abdominal pain, nausea no other symptoms Objective Last 8 Hrs Date Time Temp Pulse Resp B/P Pulse Ox O2 Delivery O2 Flow Rate FiO2 09/17/16 16:54 Nasal Cannula 2.0 09/17/16 15:10 36.6 71 20 120/73 93 Room Air Physical Exam: General-oriented x 3, not in distress, speaks in sentences with no effort Eyes- EOMI, anicteric Neck- supple, no JVD Lungs- clear to auscultation bilaterally Heart- normal rate, regular rhythm; no murmurs Abdomen- normal bowel sounds, soft, nontender, Extremities- no pretibial edema, no calf tenderness Neuro- alert, oriented x 3; no gross focal deficits Skin- warm & dry Laboratory Results: Last 24 Hours Test 09/17/16 07:27 White Blood Count 8.82 K/uL Red Blood Count 4.34 M/uL Hemoglobin 13.2 g/dL Hematocrit 40.3 % Mean Corpuscular Volume 92.9 fL Mean Corpuscular Hemoglobin 30.4 pg Mean Corpuscular Hemoglobin Concent 32.8 g/dl Platelet Count 170 K/uL Mean Platelet Volume 10.4 fL Neutrophils (%) (Auto) 65.4 % Lymphocytes (%) (Auto) 20.5 % Monocytes (%) (Auto) 13.3 % Eosinophils (%) (Auto) 0.1 % Basophils (%) (Auto) 0.5 % Neutrophils # (Auto) 5.77 K/uL Lymphocytes # (Auto) 1.81 K/uL Monocytes # (Auto) 1.17 K/uL Eosinophils # (Auto) 0.01 K/uL Basophils # (Auto) 0.04 K/uL RDW Standard Deviation 45.9 fL RDW Coefficient of Variation 13.5 % Immature Granulocyte % (Auto) 0.2 % Immature Granulocyte # (Auto) 0.02 K/uL Sodium Level 145 mmol/L Potassium Level 3.3 mmol/L Chloride Level 111 mmol/L Carbon Dioxide Level 23 mmol/L Anion Gap 11.0 mmol/L Blood Urea Nitrogen 23 mg/dl Creatinine 0.96 mg/dl Est Creatinine Clear Calc Drug Dose 40.6 ml/min Estimated GFR () 61.6 Estimated GFR (Non- 53.2 BUN/Creatinine Ratio 24.1 Random Glucose 85 mg/dl Calcium Level 8.0 mg/dl Magnesium Level 2.0 mg/dl Assessment & Plan Asthma Exacerbation with Pneumonia, Left Base - Came in with acute on chronic hypoxia (desaturated to 87% on RA in ER; usually only on nocturnal O2) Has underlying asthma, interstitial lung disease, and sleep apnea. - CXR possible left base pneumonia -Influenza antigen & Influenza PCR are negative. -Blood cultures negative so far - completed 5 days of Levaquin -Prednisone being tapered PRN Nebs Diarrhea: - C. Diff negative -Continue Lactobacillus -Started empiric Flagyl. Paroxysmal Atrial Fibrillation: Known Tachy Ritchie Syndrome, S/P PPM - stable -Continue Metoprolol -Not on anticoagulation due to fall risk per cardiology note History CAD - no cardiac symptoms -Continue statin, beta meg, AVANI-I -Aspirin intolerance as per records History HTN: Stable -Continue amlodipine, lisinopril, metoprolol, furosemide Grade I Diastolic CHF: - euvolemic -Continue furosemide 40 mg daily -Monitor I's & O's. Chronic Back Pain: On chronic oxycodone PRN History Depression/Anxiety: Continue sertraline, PRN Klonopin as per home doses. Code Status: DNR per my discussion with the patient upon admission. DVT Prophylaxis: Sq Lovenox Disposition possible d/c in AM repeat PT tomorrow Lives at home with daughter Jeni; discussed with her at bedside Follows with Dr. Strong for primary care Current Inpatient Medications: Current Inpatient Medications Medications (Trade) Dose Ordered Sig/James Route Start Time Stop Time Status Last Admin Dose Admin Acetaminophen (Tylenol Tab) 650 mg Q4H PRN PO 09/13/16 14:00 10/13/16 13:59 Ondansetron HCl (Zofran Inj) 4 mg Q6H PRN IV 09/13/16 14:00 10/13/16 13:59 Enoxaparin Sodium (Lovenox Inj) 40 mg Q24H SQ 09/13/16 21:00 10/13/16 20:59 09/16/16 20:53 40 MG Atorvastatin Calcium (Lipitor Tab) 80 mg QAM PO 09/14/16 09:00 10/14/16 08:59 09/17/16 09:24 80 MG Furosemide (Lasix Tab) 40 mg QAM PO 09/14/16 09:00 10/14/16 08:59 09/17/16 09:23 40 MG Lisinopril (Zestril Tab) 20 mg DAILY PO 09/14/16 09:00 09/17/16 09:21 20 MG Metoprolol Succinate (Toprol Xl Tab) 25 mg DAILY PO 09/14/16 09:00 10/14/16 08:59 09/17/16 09:21 25 MG Nitroglycerin (Nitrostat Tab) 0.4 mg UD PRN UT 09/13/16 14:15 10/13/16 14:14 Potassium Chloride (Klor-Con Tab) 20 meq DAILY PO 09/14/16 09:00 10/14/16 08:59 09/17/16 09:23 20 MEQ Sertraline HCl (Zoloft Tab) 50 mg QID PO 09/13/16 17:00 10/13/16 16:59 09/17/16 16:22 50 MG Mirtazapine (Remeron Tab) 15 mg HS PRN PO 09/13/16 14:15 10/13/16 14:14 09/13/16 22:57 15 MG Pantoprazole Sodium (Protonix Tab) 40 mg QAM PO 09/14/16 09:00 10/14/16 08:59 09/17/16 09:23 40 MG Ipratropium [place] (Atrovent 0.02% 0.5MG/2.5ML Neb) 0.5 mg Q6R PRN INH 09/13/16 17:42 10/13/16 17:41 09/16/16 14:03 0.5 MG Levalbuterol (Xopenex 1.25MG/ 3ML Neb) 1.25 mg Q6R PRN INH 09/13/16 17:45 10/13/16 17:44 09/16/16 14:03 1.25 MG Clonazepam (Klonopin Tab) 0.5 mg QID PRN PO 09/14/16 18:30 10/14/16 18:29 09/17/16 16:22 0.5 MG Oxycodone HCl (Roxicodone Immediate Rel Tab) 5 mg Q6 PRN PO 09/15/16 00:00 09/29/16 00:00 Lactobacillus Acidophilus (Floranex Tab) 4 tab TIDM PO 09/15/16 17:00 10/15/16 16:59 09/17/16 16:23 4 TAB Prednisone (PredniSONE TAB) 30 mg DAILY PO 09/16/16 08:00 10/16/16 07:59 09/17/16 09:22 30 MG Amlodipine Besylate (Norvasc Tab) 5 mg DAILY PO 09/17/16 08:00 10/17/16 07:59 09/17/16 09:24 5 MG Menthol (Nice Delilah) 1 delilah Q4 PRN PO 09/16/16 16:45 10/16/16 16:44 Codeine Phosphate/ Guaifenesin (Robitussin-AC Sugar Free Syrup) 10 ml Q6H PRN PO 09/16/16 16:45 10/16/16 16:44 Loperamide HCl (Imodium Cap) 2 mg Q6 PRN PO 09/16/16 20:15 10/16/16 20:14 09/16/16 20:57 2 MG
[2016-09-17] MEDS ORDERED: POTASSIUM CHLORIDE 20 MEQ TABCR PO ONE (21:00)
[2016-09-17] MEDS: ENOXAPARIN 40 MG/0.4 ML SYR SQ SCH (22:06)
[2016-09-17 22:12] VITALS: PULSE 71; O2SAT 94
[2016-09-18 07:07] VITALS: BP 163/71; PULSE 67; TEMP 36.8; O2SAT 92
[2016-09-18 07:51] LABS: BUN/CREATININE RATIO 22.8 (10-20); CREATININE 1.1 mg/dl (0.60-1.20); POTASSIUM 3.4 mmol/L (3.5-5.1)
[2016-09-18] MEDS: SERTRALINE HCL 50 MG TAB PO SCH ×3 (08:11→17:13)
[2016-09-18] MEDS: ATORVASTATIN 40 MG TAB PO SCH (08:12)
[2016-09-18] MEDS: METOPROLOL SUCC 25MG EXT REL TAB PO SCH (08:12)
[2016-09-18] MEDS: AMLODIPINE BESYLATE 5 MG TAB PO SCH (08:12)
[2016-09-18] MEDS: LACTOBACILLUS ACIDOPHILUS (FLORANEX) TAB PO SCH ×3 (08:12→17:13)
[2016-09-18] MEDS: POTASSIUM CHLORIDE 20 MEQ TABCR PO SCH (08:12)
[2016-09-18] MEDS: PANTOprazole SOD 40 MG TAB PO SCH (08:13)
[2016-09-18] MEDS: FUROSEMIDE 40 MG TAB PO SCH (08:13)
[2016-09-18] MEDS: LISINOPRIL 20 MG TAB PO SCH (08:13)
[2016-09-18] MEDS: CLONAZEPAM 0.5 MG TAB PO PRN ×2 (08:16→15:02)
[2016-09-18] MEDS: LOPERAMIDE HCL 2 MG CAP PO PRN ×2 (08:58→15:02)
[2016-09-18] MEDS ORDERED: POTASSIUM CHLORIDE 10 MEQ TABCR PO SCH (11:45)
[2016-09-18 15:14] VITALS: BP 108/68; PULSE 67; TEMP 36.6; O2SAT 93
[2016-09-18] MEDS ORDERED: LEVALBUTEROL/IPRATROPIUM NEB INH ONE (17:05)
[2016-09-18] MEDS ORDERED: IPRATROPIUM BROMIDE NEB SOLN 0.02% 2.5 ML VIAL INH ONE (17:15)
[2016-09-18] MEDS ORDERED: LEVALBUTEROL 1.25MG/0.5ML NEB INH ONE (17:15)
--- NOTE | 2016-09-18 17:15 | Progress Note ---
Medicine Progress Note Date & Time of Visit: Sep 18, 2016 at 17:06. Subjective patient seen resting in bed, comfortable daughter at bedside patient states she feels fine overall breathing has improved, still has some non productive cough diarrhea also improving, no abdominal pain denies other symptoms states she is ready and would like to be discharged today Objective Last 8 Hrs Date Time Temp Pulse Resp B/P Pulse Ox O2 Delivery O2 Flow Rate FiO2 09/18/16 16:00 Room Air 09/18/16 15:14 36.6 67 20 108/68 93 Room Air Physical Exam: General-oriented x 3, not in distress, speaks in sentences with no effort Neck- no JVD Lungs- clear breath sounds bilaterally Heart- normal rate, regular rhythm; no murmurs Abdomen- normal bowel sounds, soft, nontender Extremities- no pretibial edema, no calf tenderness Neuro- alert, oriented x 3; no gross focal deficits Skin- warm & dry Laboratory Results: Last 24 Hours Test 09/18/16 06:48 Sodium Level 145 mmol/L Potassium Level 3.4 mmol/L Chloride Level 111 mmol/L Carbon Dioxide Level 26 mmol/L Anion Gap 8.0 mmol/L Blood Urea Nitrogen 25 mg/dl Creatinine 1.10 mg/dl Est Creatinine Clear Calc Drug Dose 35.4 ml/min Estimated GFR () 52.3 Estimated GFR (Non- 45.1 BUN/Creatinine Ratio 22.8 Random Glucose 87 mg/dl Calcium Level 8.0 mg/dl Date/Time Source Procedure Growth Status 09/18/16 13:00 Stool C.difficile Toxin B Gene (PCR) - Final No C. difficile toxin B gene detected Complete Assessment & Plan Asthma Exacerbation with Possible Pneumonia, Left Base vs. Acute Bronchitis - Came in with acute on chronic hypoxia (desaturated to 87% on RA in ER; usually only on nocturnal O2) Has underlying asthma, interstitial lung disease, and sleep apnea. - CXR possible left base pneumonia -Influenza antigen & Influenza PCR are negative. -Blood cultures negative so far - completed 5 days of Levaquin -Prednisone being tapered Q6h Nebs - patient clinically improved, requesting discharge today, her daughter agreeable - discharge on: Prednisone taper course Nebs q6h PRN Hycodan Diarrhea: - C. 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 Code Status: DNR per discussion with the patient upon admission. DVT Prophylaxis: Sq Lovenox given Disposition d/c home with home health services ff up with PCP in 1 week Current Inpatient Medications: Current Inpatient Medications Medications (Trade) Dose Ordered Sig/James Route Start Time Stop Time Status Last Admin Dose Admin Acetaminophen (Tylenol Tab) 650 mg Q4H PRN PO 09/13/16 14:00 10/13/16 13:59 Ondansetron HCl (Zofran Inj) 4 mg Q6H PRN IV 09/13/16 14:00 10/13/16 13:59 Enoxaparin Sodium (Lovenox Inj) 40 mg Q24H SQ 09/13/16 21:00 10/13/16 20:59 09/17/16 22:06 40 MG Atorvastatin Calcium (Lipitor Tab) 80 mg QAM PO 09/14/16 09:00 10/14/16 08:59 09/18/16 08:12 80 MG Furosemide (Lasix Tab) 40 mg QAM PO 09/14/16 09:00 10/14/16 08:59 09/18/16 08:13 40 MG Lisinopril (Zestril Tab) 20 mg DAILY PO 09/14/16 09:00 09/18/16 08:13 20 MG Metoprolol Succinate (Toprol Xl Tab) 25 mg DAILY PO 09/14/16 09:00 10/14/16 08:59 09/18/16 08:12 25 MG Nitroglycerin (Nitrostat Tab) 0.4 mg UD PRN UT 09/13/16 14:15 10/13/16 14:14 Potassium Chloride (Klor-Con Tab) 20 meq DAILY PO 09/14/16 09:00 10/14/16 08:59 09/18/16 08:12 20 MEQ Sertraline HCl (Zoloft Tab) 50 mg QID PO 09/13/16 17:00 10/13/16 16:59 09/18/16 12:22 50 MG Mirtazapine (Remeron Tab) 15 mg HS PRN PO 09/13/16 14:15 10/13/16 14:14 09/13/16 22:57 15 MG Pantoprazole Sodium (Protonix Tab) 40 mg QAM PO 09/14/16 09:00 10/14/16 08:59 09/18/16 08:13 40 MG Ipratropium [place] (Atrovent 0.02% 0.5MG/2.5ML Neb) 0.5 mg Q6R PRN INH 09/13/16 17:42 10/13/16 17:41 09/16/16 14:03 0.5 MG Levalbuterol (Xopenex 1.25MG/ 3ML Neb) 1.25 mg Q6R PRN INH 09/13/16 17:45 10/13/16 17:44 09/16/16 14:03 1.25 MG Clonazepam (Klonopin Tab) 0.5 mg QID PRN PO 09/14/16 18:30 10/14/16 18:29 09/18/16 15:02 0.5 MG Oxycodone HCl (Roxicodone Immediate Rel Tab) 5 mg Q6 PRN PO 09/15/16 00:00 09/29/16 00:00 Lactobacillus Acidophilus (Floranex Tab) 4 tab TIDM PO 09/15/16 17:00 10/15/16 16:59 09/18/16 12:22 4 TAB Prednisone (PredniSONE TAB) 30 mg DAILY PO 09/16/16 08:00 10/16/16 07:59 09/18/16 08:11 30 MG Amlodipine Besylate (Norvasc Tab) 5 mg DAILY PO 09/17/16 08:00 10/17/16 07:59 09/18/16 08:12 5 MG Menthol (Nice Delilah) 1 delilah Q4 PRN PO 09/16/16 16:45 10/16/16 16:44 Codeine Phosphate/ Guaifenesin (Robitussin-AC Sugar Free Syrup) 10 ml Q6H PRN PO 4/10/17 16:45 10/16/16 16:44 09/18/16 11:16 10 ML Loperamide HCl (Imodium Cap) 2 mg Q6 PRN PO 09/16/16 20:15 10/16/16 20:14 09/18/16 15:02 2 MG
[2016-09-18] MEDS ORDERED: XPNINS1255 INH (17:24)
[2016-09-18] MEDS ORDERED: HYDR5SYP11 PO (17:24)
[2016-09-18] MEDS ORDERED: ATRINS INH (17:24)
[2016-09-18] MEDS ORDERED: IMD2X PO (17:24)
[2016-09-18] MEDS ORDERED: PRED10TA PO (17:24)
[2016-09-18 17:25] VITALS: BP 108/68; PULSE 67; TEMP 36.6; O2SAT 93
--- NOTE | 2016-09-18 17:30 | Discharge Summary ---
Discharge Summary Date of Service Sep 18, 2016. Discharge Summary Admission Date: Sep 13, 2016 at 14:03 Discharge Date: Sep 18, 2016 Discharge Disposition: Home with services Principal Diagnosis: Asthma Exacerbation with Possible Pneumonia, Left Base vs. Acute Bronchitis Secondary Diagnoses/Problems: Please refer to hospital course below. Procedures: CHEST ONE VIEW PORTABLE CLINICAL HISTORY: EVALUATE RESPIRATORY DISTRESS. DYSPNEA COMPARISON STUDY: 04/11/2016 FINDINGS: Poor inspiratory volumes. Bipolar cardiac pacemaker. Possible minimal interstitial infiltrate left base. Lungs otherwise appear clear. IMPRESSION: Possible interstitial infiltrate left base. Otherwise negative study Pending Studies/Follow-Up: repeat K on ff up Medication Reconciliation New Medications: Hydrocodone W/ Homatropine (Hycodan 5/1.5MG 5 Ml) 1 Syp Syp 5 ML PO Q6H PRN for Cough for 7 Days, #140 ML 0 Refills Prednisone Tab (Prednisone) 10 Mg Tab 10 MG PO UD, #5 TAB take 2 tabs po x 1 day, then take 1 tab po x 2 days, then take 1/2 tab po x 2 days, then STOP Ipratropium [place] (Ipratropium [place]) 0.5 Mg/2.5 Ml Nebu 0.5 MG INH Q6R for 7 Days, #30 UNIT 2 Refills may use every 2-4 hours as needed for shortness of breath or wheezing Levalbuterol (Levalbuterol) 1.25 Mg/0.5 Ml Nebu 1.25 MG INH Q6R for 7 Days, #30 UNITS 2 Refills may use every 2-4 hours as needed for shortness of breath or wheezing Loperamide Hcl (Imodium) 2 Mg Cap 2 MG PO UD PRN for Diarrhea, #20 CAP 1 Refill may take 1 cap after each loose bowel movement; do not take more than 8 caps per day Continued Medications: Amlodipine (Norvasc) 10 Mg Tab 10 MG PO DAILY, 0 Refills Atorvastatin (Lipitor) 80 Mg Tab 1 TAB PO QAM Clonazepam (Klonopin) 0.5 Mg Tab 1 TAB PO 5XD PRN for Anxiety Furosemide (Lasix) 40 Mg Tab 40 MG PO QAM, 0 Refills Lisinopril (Lisinopril) 20 Mg Tab 20 MG PO DAILY Metoprolol Succinate (Toprol Xl) 25 Mg Tab 1 TAB PO DAILY Mirtazapine Soltab (Remeron Soltab) 15 Mg Soltab 15 MG PO HS PRN for Sleep Nitroglycerin (Nitrostat) 0.4 Mg Tab 0.4 MG UT UD PRN for Chest Pain, 0 Refills Omeprazole (Prilosec) 40 Mg Cap 40 MG PO DAILY PRN for Dyspepsia, CAP Oxycodone Ir (Roxicodone Ir) 5 Mg Tab 5 MG PO Q4H PRN for Pain, 0 Refills Oxygen (Oxygen) Gas 4 LITERS NA HS CPAP/SLEEP APNEA Potassium Chloride (Micro-K Ext Rel) 20 Meq Cap 20 MEQ PO DAILY, 0 Refills Sertraline (Zoloft) 100 Mg Tab 50 MG PO QID, 0 Refills Discontinued Medications: Albuterol Sulfate (Proventil Hfa) 108 Mcg/Act Aer 2 PUFFS INH QID PRN for Shortness of Breath Admission Information HPI (per Admitting provider): This is an 86 year old female with PMH of asthma, interstitial lung disease, sleep apnea on CPAP and nocturnal O2, CAD, tachy ritchie syndrome s/p pacemaker, PAF not on anticoagulation, HTN, HL, and other problems listed below who presents to the ED for shortness of breath. Pt follows with Dr. Strong for primary care and Dr. Lee for pulmonology. Pt's daughter states patient has had a cough and yesterday developed a "cold" with sore throat, raspy voice, increased rhinorrhea, chills. Daughter states cough is wet sounding but not expectorating sputum. Since yesterday has dyspnea on exertion when making the bed etc. Patient was seen in [facility] urgent care today and found to have O2 sat of 88% and was sent to the ER. Pt states breathing is improved after neb treatment. Daughter reports increased urinary incontinence. Patient denies fever , ear pain, sinus pain, ARCHIBALD, aspiration, chest pain, abdominal pain, N/V/D, dysuria, frequency, edema, calf pain, confusion. Has been ambulating with walker and L knee immobilizer. No recent falls. Patient lives with daughter and son-in-law who has been sick with URI symptoms. No recent antibiotics, steroids , hospitalization. Physical Exam (per Admitting): General Appearance: WD/WN, no apparent distress, + pertinent finding ( pleasant alert elderly female, not in distress) Head: normocephalic, atraumatic Eyes: normal inspection, PERRL, sclerae normal ENT: hearing grossly normal, TMs normal, pharynx normal Neck: supple, trachea midline Respiratory/Chest: no respiratory distress, no accessory muscle use, + rales (left base), + wheezing (few end expiratory wheezes), + pertinent finding ( saturating low 90's on 2 liters NC) Cardiovascular: regular rate, rhythm, normal peripheral pulses, + systolic murmur Abdomen/GI: normal bowel sounds, non tender, soft Extremities/Musculoskelatal: no calf tenderness, normal capillary refill, no pedal edema, + pertinent finding (knee immobilizer on LLE) Neurologic/Psych: alert, normal mood/affect, oriented x 3, + pertinent finding (grossly nonfocal) Skin: normal color, warm/dry Hospital Course Asthma Exacerbation with Possible Pneumonia, Left Base vs. Acute Bronchitis - Came in with acute on chronic hypoxia (desaturated to 87% on RA in ER; usually only on nocturnal O2) Has underlying asthma, interstitial lung disease, and sleep apnea. - CXR possible left base pneumonia -Influenza antigen & Influenza PCR are negative. -Blood cultures negative so far - completed 5 days of Levaquin -Prednisone being tapered Q6h Nebs - patient clinically improved, requesting discharge today, her daughter agreeable - discharge on: Prednisone taper course Nebs q6h PRN Hycodan Diarrhea: - C. 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 Code Status: DNR per discussion with the patient upon admission. DVT Prophylaxis: Sq Lovenox given Disposition d/c home with home health services ff up with PCP in 1 week Total time spent on discharge = 50 minutes This includes examination of the patient, discharge planning, medication reconciliation, and communication with other providers. Discharge Instructions Discharge Instructions Date of Service Sep 18, 2016. Admission Reason for Admission: Hypoxia, Pneumonia Discharge Discharge Diagnosis / Problem: ACUTE ASTHMA EXACERBATION SECONDARY TO ACUTE BRONCHITIS VS. PNEUMONIA Discharge Goals Goal(s): Diagnostic testing, Therapeutic intervention Activity Recommendations Activity Limitations: as noted below (NO HEAVY EXERTION UNTIL RE-EVALUATED BY PRIMARY CARE PHYSICIAN) . Instructions / Follow-Up Instructions / Follow-Up PLEASE REVIEW YOUR NEW MEDICATION LIST AND FOLLOW INSTRUCTIONS CAREFULLY. CALL PRIMARY CARE PHYSICIAN OR RETURN TO ER IMMEDIATELY IF WITH RECURRENCE OF SYMPTOMS. FOLLOW UP WITH Current Hospital Diet Patient's current hospital diet: AHA Diet (Heart Healthy) Discharge Diet Recommended Diet: AHA Diet (Heart Healthy) Pending Studies Studies pending at discharge: yes List of pending studies: Repeat potassium level on follow up with Dr. Ovalles Medical Emergencies . Who to Call and When: Medical Emergencies: If at any time you feel your situation is an emergency, please call 911 immediately. . Non-Emergent Contact Non-Emergency issues call your: Primary Care Provider Call Non-Emergent contact if: you have a fever, you have any medication questions . Past History Medical & Surgical History: (1) Hypoxia (2) Pneumonia (3) CAD (coronary artery disease) (4) Sleep apnea (5) Depression (6) Anxiety (7) Paroxysmal atrial fibrillation (8) History of pacemaker (9) GERD (gastroesophageal reflux disease) (10) HTN (hypertension) (11) Dyslipidemia (12) Ambulatory dysfunction (13) Farideh-prosthetic femur fracture at tip of prosthesis (14) Pneumonia (15) SOB (shortness of breath) (16) Hx of total knee arthroplasty (17) History of carpal tunnel surgery (18) Previous back surgery (19) History of total right hip arthroplasty . "Provider Documentation" section prepared by Ken Tavera. VTE Core Measure Inpt VTE Proph given/why not?: Enoxaparin (Lovenox)SQ
[2016-09-18 17:31] VITALS: PULSE 87; O2SAT 94
[2016-09-18] MEDS ORDERED: IPRATROPIUM BROMIDE NEB SOLN 0.02% 2.5 ML VIAL INH SCH (21:00)
[2016-09-18] MEDS ORDERED: LEVALBUTEROL/IPRATROPIUM NEB INH SCH (21:00)
[2016-09-18] MEDS ORDERED: LEVALBUTEROL 1.25MG/0.5ML NEB INH SCH (21:00)
[2016-10-04] MEDS ORDERED: MIRT15TA2 PO (10:56)
[2016-10-04] MEDS ORDERED: OMEP40CA41 PO (14:13)
[2016-10-04] MEDS ORDERED: OXYC1TAB3 PO (14:43)
[2016-10-04] MEDS ORDERED: FRS/40 PO (15:20)
[2016-10-04] MEDS ORDERED: AMLO-114 PO (16:52)
== END 2016-09-18 18:24 | disposition home health service (06) | DRG 194 ==
LOC: ENRESERVTM → ENRESERVDT → C.EDB 11:22 → C.2T 14:03 → C.MS4W 09-14 18:29
PROVIDERS: ADMIT Hospitalist; ATTEND Internal Medicine
DX: J18.9 Pneumonia, unspecified organism (principal); J45.901 Unspecified asthma with (acute) exacerbation; J84.9 Interstitial pulmonary disease, unspecified; I50.32 Chronic diastolic (congestive) heart failure; Z99.81 Dependence on supplemental oxygen; I25.10 Atherosclerotic heart disease of native coronary artery without angina pectoris; Z95.0 Presence of cardiac pacemaker; I48.0 Paroxysmal atrial fibrillation; I10 Essential (primary) hypertension; E78.5 Hyperlipidemia, unspecified; F41.9 Anxiety disorder, unspecified; K21.9 Gastro-esophageal reflux disease without esophagitis; E66.01 Morbid (severe) obesity due to excess calories; Z68.35 Body mass index [BMI] 35.0-35.9, adult; I25.2 Old myocardial infarction; G47.33 Obstructive sleep apnea (adult) (pediatric); Z96.641 Presence of right artificial hip joint; Z96.653 Presence of artificial knee joint, bilateral; Z88.8 Allergy status to other drugs, medicaments and biological substances; Z79.899 Other long term (current) drug therapy; R32 Unspecified urinary incontinence; F32.9 Major depressive disorder, single episode, unspecified; Z66 Do not resuscitate; G89.29 Other chronic pain; M54.9 Dorsalgia, unspecified; J20.9 Acute bronchitis, unspecified; R09.02 Hypoxemia

== ENCOUNTER 2016-10-04 18:16 | Emergency (ER) | payer OTHER, MEDICARE ==
[~2016-10-04] VITALS: Ht 154.9 cm; Wt 86.2 kg
[~2016-10-04 18:16] MED LIST changes: -ALBUAER INH; +AMLO-114 PO; -ASPEC81 PO; +ATRINS INH; +FRS/40 PO; +HYDR5SYP11 PO; +IMD2X PO; -LVNIS40 SQ; +MIRT15TA2 PO; -MRLP17 PO; -OMEP40CA PO; +OMEP40CA41 PO; +OXYC1TAB3 PO; +PRED10TA PO; +XPNINS1255 INH
[2016-10-04 18:20] VITALS: TEMP 36.6; Ht 154.9 cm; Wt 86.2 kg
--- NOTE | 2016-10-04 18:59 | EMERGENCY ROOM VISIT NOTE ---
History Report prepared by Timmy: Kwan Ashley Under the Supervision of: Dr. Roel Tang M.D. First contact with patient: 18:46 Chief Complaint: SWELLING TO EXTREMITY Stated Complaint: SWOLLEN FACE History of Present Illness The patient is an 86 year old female who presents to the Emergency Room with complaints of swelling around her mouth and face that began this morning, 9 hours prior to arrival. The patient has had three episodes of this swelling over the past three months, but this episode is the most severe. The patient experienced the swelling roughly 1-2 hours after taking her daily AVANI inhibitor , Lisinopril. The patient has been taking Lisinopril for several years without any issues, but has noted that her facial swelling occurred after taking her Lisinopril. She denies any recent fevers or vomiting. She does feel slightly nauseated, but is admittedly nervous about her swelling. Source of History: patient, family Onset: 9 hours GLASS BLOCK BENDER Position: lip (Mouth ) Quality: other (Swelling, reaction) Associated Symptoms: + nausea, No fevers, No vomiting Review of Systems See HPI for pertinent positives & negatives. A total of 10 systems reviewed and were otherwise negative. Past Medical & Surgical Medical Problems: (1) Ambulatory dysfunction (2) Anxiety (3) Anxiety State Nos (4) CAD (coronary artery disease) (5) Congestive Heart Failure Nos (6) Coronary Atherosclerosis Of [place] Coronary Vessel (7) Depression (8) Depressive Disorder Nec (9) Dyslipidemia (10) GERD (gastroesophageal reflux disease) (11) GERD (gastroesophageal reflux disease) (12) History of pacemaker (13) HTN (hypertension) (14) Hyperlipidemia Nec/Nos (15) Hypertension Nos (16) Hypertension Nos (17) Morbid Obesity (18) Obstructive Sleep Apnea (Adult) (Pediatric) (19) Old Myocardial Infarct (20) Paroxysmal atrial fibrillation (21) Farideh-prosthetic femur fracture at tip of prosthesis (22) Pneumonia (23) Sleep apnea Surgical Problems: (1) Cardiac Pacemaker In Situ (2) Hip joint replacement status (3) History of carpal tunnel surgery (4) History of total right hip arthroplasty (5) Hx of total knee arthroplasty (6) Knee Joint Replacement Status (7) Previous back surgery Family History No pertinent family history secondary to age. Social History Smoking Status: Never Smoker Smokeless Tobacco Use: No Drug Use: none Occupation Status: retired Current/Historical Medications Scheduled Amlodipine (Norvasc), 10 MG PO DAILY Atorvastatin (Lipitor), 1 TAB PO QAM Furosemide (Lasix), 40 MG PO QAM Ipratropium [place] (Ipratropium [place]), 0.5 MG INH Q6R Levalbuterol (Levalbuterol), 1.25 MG INH Q6R Lisinopril (Lisinopril), 20 MG PO DAILY Metoprolol Succinate (Toprol Xl), 1 TAB PO DAILY Oxygen (Oxygen), 4 LITERS NA HS Potassium Chloride Microencaps (Potassium Chloride Er), 20 MEQ PO DAILY Prednisone Tab (Prednisone), 10 MG PO UD Sertraline (Zoloft), 50 MG PO BID Scheduled PRN Clonazepam (Klonopin), 1 TAB PO 5XD PRN for Anxiety Hydrocodone W/ Homatropine (Hycodan 5/1.5MG 5 Ml), 5 ML PO Q6H PRN for Cough Loperamide Hcl (Imodium), 2 MG PO UD PRN for Diarrhea Mirtazapine Soltab (Remeron Soltab), 15 MG PO HS PRN for Sleep Nitroglycerin (Nitrostat), 0.4 MG UT UD PRN for Chest Pain Omeprazole (Prilosec), 40 MG PO DAILY PRN for Dyspepsia Oxycodone Ir (Roxicodone Ir), 5 MG PO Q4H PRN for Pain Allergies Coded Allergies: Promethazine (Verified Allergy, Intermediate, SHORTNESS OF BREATH, 09/13/16) Respiratory depression Salicylates (Verified Allergy, Unknown, PT WAS ON ASA PRIOR TO ADMIT., 09/13) Simvastatin (Verified Allergy, Unknown, 09/13/16) Physical Exam Vital Signs Date Time Temp Pulse Resp B/P Pulse Ox O2 Delivery O2 Flow Rate FiO2 10/04/16 19:49 66 141/79 10/04/16 19:04 70 16 143/79 92 Room Air 10/04/16 18:20 36.6 80 20 179/92 90 Room Air Physical Exam GENERAL: Patient is in no acute distress. HEENT: No facial cellulitis. Mucous membranes are moist, both upper and lower lips are edematous, tongue is not swollen, floor of the mouth is not swollen. Posterior pharynx is not swollen. NECK: No stridor, no adenopathy, no meningismus, trachea is midline. LUNGS: Clear to auscultation bilaterally, no wheeze, no rhonchi, breath sounds equal. HEART: 3/6 systolic murmur with a regular rate and rhythm. ABDOMEN: Soft, nontender, bowel sounds positive, no hernias, no peritonitis. EXTREMITIES: No cyanosis or edema, full range of motion of all the joints without pain or difficulty, no signs for acute trauma. NEUROLOGIC: Oriented x 3, no acute motor or sensory deficits, no focal weakness. SKIN: No rash, no jaundice, no diaphoresis. Medical Decision & Procedures Medications Administered Medications (Trade) Dose Ordered Sig/James Route Start Time Stop Time Status Last Admin Dose Admin Diphenhydramine HCl (Benadryl Cap) 25 mg NOW ONCE PO 10/04/16 19:00 10/04/16 19:01 DC 10/04/16 19:03 25 MG ED Course 1845: The patient was evaluated in room C3. A complete history and physical exam was performed. 1899: Ordered Benadryl 25 mg PO. 1924: I discussed the case with Dr. Angely Lainez PCP, who is covering for [facility] outpatient. He suggests not doing anything at this time, aside from stopping the AVANI inhibitor. 1940: I reevaluated the patient, and discussed results and discharge instructions: she verbalized understanding and agreement. The patient is ready for discharge. Medical Decision Differential Diagnosis include; medication reaction, allergic reaction, airway compromise, posterior pharyngeal swelling, insect sting, angioedema. The patient presents with lip swelling. This has happened before intermittently and today's event occurred after her lisinopril. There was no insect sting. She has no known medication allergies that cause this type of difficulty. The patient's lungs are clear, her posterior airway is open, the tongue is not edematous and the floor of the mouth is not swollen. The patient did receive a small dose of oral Benadryl. I did not think laboratory testing would be warranted. The patient appears to have angioedema, likely from her lisinopril. I did speak with her medical doctor's office. The patient is being discharged. She will stop the lisinopril. She was told to sleep with her head elevated as I do think her nap lying flat today worsened her swelling. She was encouraged to return for worsening symptoms. Consults Time Called: 1917 Consulting Physician: Dr. Angely Lainez PCP Returned Call: 1924 I discussed the case with Dr. Angely Lainez PCP, who is covering for [facility] outpatient. He suggests not doing anything at this time, aside from stopping the AVANI inhibitor. Impression Primary Impression: Angioedema Scribe Attestation The scribe's documentation has been prepared under my direction and personally reviewed by me in its entirety. I confirm that the note above accurately reflects all work, treatment, procedures, and medical decision making performed by me. Departure Information Dispostion Home / Self-Care Referrals Baltazar Strong M.D. (PCP) Forms HOME CARE DOCUMENTATION FORM, IMPORTANT VISIT INFORMATION, WORK / SCHOOL INSTRUCTIONS Patient Instructions My [facility] Additional Instructions stop the Lisinopril sleep with the head elevated as we discussed return for worsening symptoms ice to the lips may help--30 minutes at a time use Benadryl 25 mg every 6 hours for 3 days keep a watch on your blood pressure--call the senior reservations agent doctor if it starts to run high
[2016-10-04 19:04] VITALS: O2SAT 92
[2016-10-04] MEDS ORDERED: POTA20TA13 PO (19:45)
[2016-10-04 19:49] VITALS: BP 141/79; PULSE 66
[2016-10-04] MEDS ORDERED: ATOR-26 PO (20:12)
[2016-10-04] MEDS ORDERED: CLON0.5T3 PO (20:12)
[2016-10-04] MEDS ORDERED: LSN20 PO (20:12)
[2016-10-04] MEDS ORDERED: METO-478 PO (20:12)
== END 2016-10-04 19:50 | disposition home or self-care (01) ==
LOC: C.EDB 18:17 → C.EDC 19:50
DX: T78.3XXA Angioneurotic edema, initial encounter (principal); X58.XXXA Exposure to other specified factors, initial encounter; I25.10 Atherosclerotic heart disease of native coronary artery without angina pectoris; I10 Essential (primary) hypertension; E78.5 Hyperlipidemia, unspecified; F32.9 Major depressive disorder, single episode, unspecified; I50.9 Heart failure, unspecified; E66.01 Morbid (severe) obesity due to excess calories; I25.2 Old myocardial infarction; Z87.01 Personal history of pneumonia (recurrent); Z95.0 Presence of cardiac pacemaker; Z96.641 Presence of right artificial hip joint; Z98.890 Other specified postprocedural states; Z79.52 Long term (current) use of systemic steroids; Z79.899 Other long term (current) drug therapy

== ENCOUNTER 2017-05-24 12:19 | Emergency (ER) | payer OTHER, MEDICARE ==
[~2017-05-24] VITALS: Ht 154.9 cm; Wt 102.0 kg
[~2017-05-24 12:19] MED LIST changes: +ATOR-26 PO; +CLON0.5T3 PO; +LSN20 PO; +METO-478 PO; -POTA-335 PO; +POTA20TA13 PO; -PRED10TA PO
[2017-05-24] MEDS ORDERED: OXYCODONE HCL IR 5 MG TAB (IMMEDIATE RELEASE) PO STA (12:29)
--- NOTE | 2017-05-24 12:32 | EMERGENCY ROOM VISIT NOTE ---
History Report prepared by Timmy: Mark Willis Under the Supervision of: Dr. Biju Murrieta M.D. First contact with patient: 12:22 Stated Complaint: FALL History of Present Illness The patient is an 86 year old female who presents to the Emergency Room with complaints of a constant headache beginning 45 minutes ago. The patient's daughter states the patient was trying to help her bake cookies in the kitchen when the patient lost her balance and fell. She reports the patient struck her head on the chair. The daughter notes the patient has a history of bilateral knee replacements. The patient states sitting up hurts her back. She denies neck pain, abdominal pain, chest pain, and being on blood thinners. Source of History: patient, family (daughter) Onset: 45 minutes ago Position: head Quality: ache Timing: constant Associated Symptoms: + back pain (when sitting up), No neck pain, No chest pain, No abdominal pain Review of Systems See HPI for pertinent positives & negatives. A total of 10 systems reviewed and were otherwise negative. Past Medical & Surgical Medical Problems: (1) Ambulatory dysfunction (2) Anxiety (3) Anxiety State Nos (4) CAD (coronary artery disease) (5) Congestive Heart Failure Nos (6) Coronary Atherosclerosis Of [place] Coronary Vessel (7) Depression (8) Depressive Disorder Nec (9) Dyslipidemia (10) GERD (gastroesophageal reflux disease) (11) GERD (gastroesophageal reflux disease) (12) History of pacemaker (13) HTN (hypertension) (14) Hyperlipidemia Nec/Nos (15) Hypertension Nos (16) Hypertension Nos (17) Morbid Obesity (18) Obstructive Sleep Apnea (Adult) (Pediatric) (19) Old Myocardial Infarct (20) Paroxysmal atrial fibrillation (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 Social History Smoking Status: Never Smoker Drug Use: none Housing Status: lives with family Occupation Status: retired Current/Historical Medications Scheduled Amlodipine (Norvasc), 10 MG PO DAILY Atorvastatin (Lipitor), 1 TAB PO QAM Furosemide (Lasix), 40 MG PO QAM Home O2 Therapy (Oxygen), 4 LITERS NA HS Levalbuterol (Levalbuterol), 1.25 MG INH Q6R Metoprolol Succinate (Toprol Xl), 1 TAB PO DAILY Mirtazapine Soltab (Remeron Soltab), 15 MG PO HS Potassium Chloride Microencaps (Potassium Chloride Er), 20 MEQ PO DAILY Sertraline (Zoloft), 50 MG PO QID Scheduled PRN Clonazepam (Klonopin), 1 TAB PO 5XD PRN for Anxiety Hydrocodone W/ Homatropine (Hycodan 5/1.5MG 5 Ml), 5 ML PO Q6H PRN for Cough Loperamide Hcl (Imodium), 2 MG PO UD PRN for Diarrhea Nitroglycerin (Nitrostat), 0.4 MG UT UD PRN for Chest Pain Omeprazole (Prilosec), 40 MG PO DAILY PRN for Dyspepsia Oxycodone Ir (Roxicodone Ir), 5 MG PO Q4H PRN for Pain Allergies Coded Allergies: Promethazine (Verified Allergy, Intermediate, SHORTNESS OF BREATH, ) Respiratory depression Lisinopril (Verified Allergy, Unknown, FACIAL SWELLING, 05/24/17) Salicylates (Verified Allergy, Unknown, PT WAS ON ASA PRIOR TO ADMIT., ) Simvastatin (Verified Allergy, Unknown, 05/24/17) Physical Exam Vital Signs Date Time Temp Pulse Resp B/P (MAP) Pulse Ox O2 Delivery O2 Flow Rate FiO2 05/24/17 14:30 72 20 147/77 92 Room Air 05/24/17 12:33 36.6 94 20 176/95 94 Room Air Physical Exam GENERAL: Patient is a healthy-appearing well-nourished 86 year old female. HEAD: Normocephalic. [id number] contusion to right back of head. EYES: Ocular movements intact pupils equal and react to light OROPHARYNX mucous membranes are moist no exudates present no erythema or edema present NECK: Supple no nuchal rigidity. Complaining of neck tenderness. CHEST: Good equal expansion LUNGS: Clear and equal to auscultation CARDIAC: Normal S1 and S2 ABDOMEN: Soft nontender no guarding BACK: No CVA tenderness. Complaining of L1 and L2 pain. EXTREMITIES: Normal muscle strength in all groups no clubbing cyanosis or edema. Contusion to right knee. NEURO: Patient is following commands and answering questions appropriately. Alert and oriented x3 Cranial Nerves 2-12 grossly intact Medical Decision & Procedures ER Provider Diagnostic Interpretation: Radiology results as stated below per my review and radiologist interpretation: CERVICAL, THORACIC, LUMBAR SPINE CT CT DOSE: HISTORY: Pt c/o neck pain s/p fall TECHNIQUE: Multiaxial CT images of the cervical, thoracic, lumbar spine were performed and reformatted in the sagittal and coronal plane without the use of contrast. A dose lowering technique was utilized adhering to the principles of ALARA. COMPARISON: None. FINDINGS: A 2.4 cm right thyroid nodule. Advanced facet degenerative changes within the cervical spine. Prevertebral soft tissues and the C1-C2 interval are intact. Severe degenerative disc disease from C4 through C6. Moderate disc space narrowing at C3-C4 and C6-C7. Pacemaker wires are noted. No fracture or subluxation within the cervical spine. S-shaped scoliosis of the thoracolumbar spine. No fractures or subluxation within the thoracic spine. Moderate degenerative disc disease throughout the thoracic spine. A 3.5 cm sebaceous cyst within the upper mid back. No pneumothorax. Postoperative changes of the lower lumbar spine. The L3-S1 facets are fused. There is also fusion of the L3-L4 vertebral bodies. Severe disc space narrowing at L1-L2 and L2-L3. Mild to moderate central canal narrowing at the L3-L4 and L2-L3 levels. No fracture or subluxation. IMPRESSION: 1. No fracture or subluxation within the cervical, thoracic, lumbar spine. 2. Additional findings as described above. Electronically signed by: Bello Chilel M.D. 05/24/2017 1:42 PM Dictated Date/Time: 05/24/2017 1:29 PM PELVIS 1 OR 2 VIEW ROUTINE CLINICAL HISTORY: Pt c/o fall. Pelvic pain. COMPARISON STUDY: Pelvis 04/11/2016. FINDINGS: There is again noted a right total hip arthroplasty. The hardware is intact. No acute fracture or dislocation within the pelvis or hips. No fractures identified within the sacrum. Degenerative changes within the bilateral sacroiliac joints are again noted. The bones are osteopenic. Vascular calcifications are present. IMPRESSION: No fracture or dislocation within the pelvis or hips. Electronically signed by: Bello Chilel M.D. 05/24/2017 2:11 PM Dictated Date/Time: 05/24/2017 2:10 PM R KNEE 1 OR 2 VIEWS ROUTINE, L KNEE 1 OR 2 VIEWS ROUTINE CLINICAL HISTORY: Bilateral knee pain. COMPARISON STUDY: Left knee CT 04/11/2016. FINDINGS: Bilateral total knee arthroplasties. The bones are osteopenic. No acute fractures. No significant right knee effusion. Small left knee effusion persists.. No change in the anterolateral subluxation of the left tibia relation to the femur. IMPRESSION: 1. No fractures within the right or left knee. 2. No change in the anterolateral subluxation of the left tibia in relation to the femur. Electronically signed by: Bello Chilel M.D. 05/24/2017 2:15 PM Dictated Date/Time: 05/24/2017 2:[address] CT DOSE: 3291.46 mGy.cm HISTORY: Pt c/o fall ,hit head TECHNIQUE: Multiaxial CT images of the head were performed without the use of intravenous contrast. Automated exposure control was utilized for this study. A dose lowering technique was utilized adhering to the principles of ALARA. Comparison: Head CT 04/11/2016. Findings: The paranasal sinuses and mastoid air cells are clear. The calvarium and skull base are intact. There is no mass, hematoma, midline shift, acute infarct. White matter hypodensity is nonspecific but suggestive of microvascular ischemic change. The ventricles and sulci demonstrate mild age-related involutional changes. Mild right lateral scalp swelling. Impression: No acute intracranial abnormality. Atrophy and microvascular ischemic changes. Electronically signed by: Bello Chilel M.D. 05/24/2017 1:44 PM Dictated Date/Time: 05/24/2017 1:42 PM Medications Administered Medications (Trade) Dose Ordered Sig/James Route Start Time Stop Time Status Last Admin Dose Admin Oxycodone HCl (Roxicodone Immediate Rel Tab) 10 mg NOW STAT PO 05/24/17 12:29 05/24/17 12:31 DC 05/24/17 12:41 10 MG ED Course 1224: Past medical records reviewed. The patient was evaluated in room B09. A complete history and physical examination was performed. 1229: Ordered Oxycodone HCl 10mg PO 1436: Upon reexamination the patient is resting comfortably. I discussed results and treatment plan with the patient. She verbalizes agreement and understanding. The patient is ready for discharge. Medical Decision Differential diagnosis: Etiologies such as fracture, dislocation, intra-abdominal, pneumothorax, intrathoracic , intracranial, neurologic, as well as other traumatic pathologies were entertained. This is an 86-year-old female who presents emergency department after losing her balance and falling at home. The patient is complaining of right knee pain as well as back pain after the fall. She was given oxyphil the pain in the emergency department. Repeat examination revealed improvement patient's symptoms. The patient has a normal CT of the spine as well as x-rays of the knees. Based on these findings and the fact that the patient could ambulate with a walker in the emergency department I feel that the patient can be safely discharged home for follow-up with her primary care physician as well as orthopedics. Patient family were in agreement with the treatment plan. Head Trauma GCS Score: 15 Medication Reconcilliation Current Medication List: was personally reviewed by me Blood Pressure Screening Patient's blood pressure: Elevated blood pressure Blood pressure disposition: Elevated BP felt to be situational Impression Primary Impression: Fall Additional Impressions: Contusion of head Contusion of knee, right Scribe Attestation The scribe's documentation has been prepared under my direction and personally reviewed by me in its entirety. I confirm that the note above accurately reflects all work, treatment, procedures, and medical decision making performed by me. Departure Information Dispostion Home / Self-Care Referrals Baltazar Strong M.D. (PCP) Forms HOME CARE DOCUMENTATION FORM, IMPORTANT VISIT INFORMATION, School Instructions, Work Instructions Patient Instructions ED Contusion Scalp, ED Prevention Fall, Falls Prevent Home, [facility], Swelling Knee Pain Reduce Additional Instructions Follow up with DR Greene's office You have been examined and treated today on an emergency basis only. This is not a substitute for, or an effort to provide, complete comprehensive medical care. It is impossible to recognize and treat all injuries or illnesses in a single emergency department visit. It is therefore important that you follow up closely with Dr Strong. Call as soon as possible for an appointment. Thank you for your time and consideration. I look forward to speaking with you again soon. Please don't hesitate to call us if you have any questions. Problem Qualifiers Primary Impression: Fall Encounter type: initial encounter Qualified Codes: W19.XXXA - Unspecified fall, initial encounter Additional Impressions: Contusion of head Encounter type: initial encounter Contusion of head detail: unspecified part of head Qualified Codes: S00.93XA - Contusion of unspecified part of head , initial encounter Contusion of knee, right Encounter type: initial encounter Qualified Codes: S80.01XA - Contusion of right knee, initial encounter
[2017-05-24 12:33] VITALS: TEMP 36.6; Ht 154.9 cm; Wt 102.0 kg
--- NOTE | 2017-05-24 13:43 | DIAGNOSTIC IMAGING REPORT ---
CERVICAL, THORACIC, LUMBAR SPINE CT CT DOSE: HISTORY: Pt c/o neck pain s/p fall TECHNIQUE: Multiaxial CT images of the cervical, thoracic, lumbar spine were performed and reformatted in the sagittal and coronal plane without the use of contrast. A dose lowering technique was utilized adhering to the principles of ALARA. COMPARISON: None. FINDINGS: A 2.4 cm right thyroid nodule. Advanced facet degenerative changes within the cervical spine. Prevertebral soft tissues and the C1-C2 interval are intact. Severe degenerative disc disease from C4 through C6. Moderate disc space narrowing at C3-C4 and C6-C7. Pacemaker wires are noted. No fracture or subluxation within the cervical spine. S-shaped scoliosis of the thoracolumbar spine. No fractures or subluxation within the thoracic spine. Moderate degenerative disc disease throughout the thoracic spine. A 3.5 cm sebaceous cyst within the upper mid back. No pneumothorax. Postoperative changes of the lower lumbar spine. The L3-S1 facets are fused. There is also fusion of the L3-L4 vertebral bodies. Severe disc space narrowing at L1-L2 and L2-L3. Mild to moderate central canal narrowing at the L3-L4 and L2-L3 levels. No fracture or subluxation. IMPRESSION: 1. No fracture or subluxation within the cervical, thoracic, lumbar spine. 2. Additional findings as described above. Electronically signed by: Bello Chilel M.D. 05/24/2017 1:42 PM Dictated Date/Time: 05/24/2017 1:29 PM
--- NOTE | 2017-05-24 13:45 | DIAGNOSTIC IMAGING REPORT ---
HEAD CT NONCONTRAST CT DOSE: 3291.46 mGy.cm HISTORY: Pt c/o fall ,hit head TECHNIQUE: Multiaxial CT images of the head were performed without the use of intravenous contrast. Automated exposure control was utilized for this study. A dose lowering technique was utilized adhering to the principles of ALARA. Comparison: Head CT 04/11/2016. Findings: The paranasal sinuses and mastoid air cells are clear. The calvarium and skull base are intact. There is no mass, hematoma, midline shift, acute infarct. White matter hypodensity is nonspecific but suggestive of microvascular ischemic change. The ventricles and sulci demonstrate mild age-related involutional changes. Mild right lateral scalp swelling. Impression: No acute intracranial abnormality. Atrophy and microvascular ischemic changes. Electronically signed by: Bello Chilel M.D. 05/24/2017 1:44 PM Dictated Date/Time: 05/24/2017 1:42 PM
--- NOTE | 2017-05-24 14:13 | DIAGNOSTIC IMAGING REPORT ---
PELVIS 1 OR 2 VIEW ROUTINE CLINICAL HISTORY: Pt c/o fall. Pelvic pain. COMPARISON STUDY: Pelvis 04/11/2016. FINDINGS: There is again noted a right total hip arthroplasty. The hardware is intact. No acute fracture or dislocation within the pelvis or hips. No fractures identified within the sacrum. Degenerative changes within the bilateral sacroiliac joints are again noted. The bones are osteopenic. Vascular calcifications are present. IMPRESSION: No fracture or dislocation within the pelvis or hips. Electronically signed by: Bello Chilel M.D. 05/24/2017 2:11 PM Dictated Date/Time: 05/24/2017 2:10 PM
--- NOTE | 2017-05-24 14:16 | DIAGNOSTIC IMAGING REPORT ---
R KNEE 1 OR 2 VIEWS ROUTINE, L KNEE 1 OR 2 VIEWS ROUTINE CLINICAL HISTORY: Bilateral knee pain. COMPARISON STUDY: Left knee CT 04/11/2016. FINDINGS: Bilateral total knee arthroplasties. The bones are osteopenic. No acute fractures. No significant right knee effusion. Small left knee effusion persists.. No change in the anterolateral subluxation of the left tibia relation to the femur. IMPRESSION: 1. No fractures within the right or left knee. 2. No change in the anterolateral subluxation of the left tibia in relation to the femur. Electronically signed by: Bello Chilel M.D. 05/24/2017 2:15 PM Dictated Date/Time: 05/24/2017 2:11 PM
[2017-05-24 14:30] VITALS: BP 147/77; PULSE 72; O2SAT 92
== END 2017-05-24 17:00 | disposition home or self-care (01) ==
LOC: EDBD 12:19 → C.EDB 12:20
DX: S00.93XA Contusion of unspecified part of head, initial encounter (principal); S80.01XA Contusion of right knee, initial encounter; W01.198A Fall on same level from slipping, tripping and stumbling with subsequent striking against other object, initial encounter; R40.2412 Glasgow coma scale score 13-15, at arrival to emergency department; M54.5 Low back pain; Z96.653 Presence of artificial knee joint, bilateral; E78.5 Hyperlipidemia, unspecified; K21.9 Gastro-esophageal reflux disease without esophagitis; I11.0 Hypertensive heart disease with heart failure; I50.9 Heart failure, unspecified; Z95.0 Presence of cardiac pacemaker

== ENCOUNTER 2017-07-12 17:52 | Emergency (ER) | payer OTHER, MEDICARE ==
[~2017-07-12 17:52] MED LIST changes: -ATOR-26 PO; -ATRINS INH; -CLON0.5T3 PO; -LSN20 PO; -METO-478 PO; -POTA20TA13 PO
[2017-07-12 18:07] VITALS: Ht 157.5 cm
[2017-07-12] MEDS ORDERED: ONDANSETRON INJ 2 MG/ML 2 ML VIAL IV STA (18:32)
[2017-07-12] MEDS ORDERED: ACETAMINOPHEN 500 MG TAB PO STA (18:32)
[2017-07-12] MEDS ORDERED: SODIUM CHLORIDE 0.9% 500ML 500 ML IV STA (18:40)
--- NOTE | 2017-07-12 18:43 | EMERGENCY ROOM VISIT NOTE ---
History Report prepared by Timmy: Aquilino Noriega Under the Supervision of: Dr. Ilan Weaver M.D. First contact with patient: 18:11 Chief Complaint: FLU LIKE SX Stated Complaint: FLU,NAUSEATED History of Present Illness The patient is a 86 year old white female with a past medical history of CAD, TINY, HTN, pacemaker, HLD, MDD, and A fib who presents to the ED with a cc of a constant flu-like symptoms beginning two days ago. Positive flu contact, febrile , nausea, rhinorrhea, nonproductive cough. Negative smoking, a history of asthma ,urinary symptoms, abnormal bowel movements, antibiotic use, abdominal pain, chest pain, and shortness of breath. She reports that her temperature has been 99.8. The patient states that she had her first dose of 30 mg of Tamiflu last night after calling her physician and reporting her symptoms. The patient states that she takes Aspirin, but denies taking Plavix. Source of History: patient Onset: two days ago Position: other (global) Timing: constant Modifying Factors (Relieving): other (Tamiflu) Associated Symptoms: + cough, + nausea, No chest pain, No SOB, No abdominal pain, No diarrhea, No urinary symptoms Review of Systems See HPI for pertinent positives and negatives. A total of ten systems were reviewed and were otherwise negative. Past Medical & Surgical Medical Problems: (1) Ambulatory dysfunction (2) Anxiety (3) Anxiety State Nos (4) CAD (coronary artery disease) (5) Congestive Heart Failure Nos (6) Coronary Atherosclerosis Of [place] Coronary Vessel (7) Depression (8) Depressive Disorder Nec (9) Dyslipidemia (10) GERD (gastroesophageal reflux disease) (11) GERD (gastroesophageal reflux disease) (12) History of pacemaker (13) HTN (hypertension) (14) Hyperlipidemia Nec/Nos (15) Hypertension Nos (16) Hypertension Nos (17) Morbid Obesity (18) Obstructive Sleep Apnea (Adult) (Pediatric) (19) Old Myocardial Infarct (20) Paroxysmal atrial fibrillation (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 Social History Smoking Status: Never Smoker Drug Use: none Housing Status: lives with family Occupation Status: retired Current/Historical Medications Scheduled Amlodipine (Norvasc), 10 MG PO DAILY Atorvastatin (Lipitor), 1 TAB PO QAM Furosemide (Lasix), 40 MG PO QAM Metoprolol Succinate (Toprol Xl), 1 TAB PO DAILY Mirtazapine Soltab (Remeron Soltab), 15 MG PO HS Oseltamivir Phosphate (Tamiflu), 1 CAP PO BID Potassium Chloride Microencaps (Potassium Chloride Er), 20 MEQ PO DAILY Sertraline (Zoloft), 50 MG PO QID Scheduled PRN Clonazepam (Klonopin), 1 TAB PO 5XD PRN for Anxiety Loperamide Hcl (Imodium), 2 MG PO UD PRN for Diarrhea Nitroglycerin (Nitrostat), 0.4 MG UT UD PRN for Chest Pain Omeprazole (Prilosec), 40 MG PO DAILY PRN for Dyspepsia Oxycodone Ir (Roxicodone Ir), 5 MG PO Q4H PRN for Pain Allergies Coded Allergies: Promethazine (Verified Allergy, Intermediate, SHORTNESS OF BREATH, ) Respiratory depression Lisinopril (Verified Allergy, Unknown, FACIAL SWELLING, 05/24/17) Salicylates (Verified Allergy, Unknown, PT WAS ON ASA PRIOR TO ADMIT., ) Simvastatin (Verified Allergy, Unknown, 05/24/17) Physical Exam Vital Signs Date Time Temp Pulse Resp B/P (MAP) Pulse Ox O2 Delivery O2 Flow Rate FiO2 07/12/17 19:56 36.8 68 20 146/90 93 Nasal Cannula 07/12/17 19:03 66 07/12/17 19:00 94 Nasal Cannula 3.0 07/12/17 18:58 88 Room Air 07/12/17 18:07 36.2 86 20 143/72 100 Room Air Physical Exam GENERAL: Awake, alert, well-appearing, NAD HENT: Normocephalic, atraumatic. EYES: Normal conjunctiva. Sclera non-icteric. NECK: Supple. No nuchal rigidity. FROM. RESPIRATORY: CTAB, no rhonchi, wheezing, crackles, no respiratory distress CARDIAC: RRR, no MRG ABDOMEN: Soft, NTND, BS+ MSK: No chest wall TTP, 1+ LE edema NEURO: GCS 15, CN 2-12 intact, moves all 4s on command SKIN: No rash or jaundice noted. Mass on right upper back. Device in right chest. Medical Decision & Procedures ER Provider Diagnostic Interpretation: X-ray: Per my interpretation, radiologist review. CHEST ONE VIEW PORTABLE CLINICAL HISTORY: Fever. Sepsis. COMPARISON STUDY: Chest radiograph September 17, 2016. FINDINGS: Incidental note is made of severe osteoarthritis of the left glenohumeral joint. Dual-lead left pacemaker is in place. Cardiomediastinal silhouette is stable. Elevation of the right hemidiaphragm is unchanged. There is no evidence for pulmonary edema. There is no consolidation to suggest pneumonia. The appearance of the chest is unchanged. IMPRESSION: No acute cardiopulmonary findings. No change in appearance of the chest. Electronically signed by: Edwin Haynes M.D. 07/12/2017 6:57 PM Dictated Date/Time: 07/12/2017 6:56 PM Laboratory Results 07/12/17 19:00 Red Blood Count 4.27, Mean Corpuscular Volume 95.6, Mean Corpuscular Hemoglobin 31.6, Mean Corpuscular Hemoglobin Concent 33.1, Mean Platelet Volume 10.7, Neutrophils (%) (Auto) 76.2, Lymphocytes (%) (Auto) 11.1, Monocytes (%) (Auto) 11.4, Eosinophils (%) (Auto) 0.7, Basophils (%) (Auto) 0.4, Neutrophils # (Auto ) 6.83, Lymphocytes # (Auto) 1.00, Monocytes # (Auto) 1.02, Eosinophils # (Auto ) 0.06, Basophils # (Auto) 0.04 07/12/17 19:00 Test 07/12/17 19:00 White Blood Count 8.97 K/uL (4.8-10.8) Red Blood Count 4.27 M/uL (4.2-5.4) Hemoglobin 13.5 g/dL (12.0-16.0) Hematocrit 40.8 % (37-47) Mean Corpuscular Volume 95.6 fL (80-100) Mean Corpuscular Hemoglobin 31.6 pg (25-34) Mean Corpuscular Hemoglobin Concent 33.1 g/dl (32-36) Platelet Count 151 K/uL (130-400) Mean Platelet Volume 10.7 fL (7.4-10.4) Neutrophils (%) (Auto) 76.2 % Lymphocytes (%) (Auto) 11.1 % Monocytes (%) (Auto) 11.4 % Eosinophils (%) (Auto) 0.7 % Basophils (%) (Auto) 0.4 % Neutrophils # (Auto) 6.83 K/uL (1.4-6.5) Lymphocytes # (Auto) 1.00 K/uL (1.2-3.4) Monocytes # (Auto) 1.02 K/uL (0.11-0.59) Eosinophils # (Auto) 0.06 K/uL (0-0.5) Basophils # (Auto) 0.04 K/uL (0-0.2) RDW Standard Deviation 46.8 fL (36.4-46.3) RDW Coefficient of Variation 13.6 % (11.5-14.5) Immature Granulocyte % (Auto) 0.2 % Immature Granulocyte # (Auto) 0.02 K/uL (0.00-0.02) Prothrombin Time 10.2 SECONDS (9.0-12.0) Prothromb Time International Ratio 1.0 (0.9-1.1) Activated Partial Thromboplast Time 23.3 SECONDS (21.0-31.0) Partial Thromboplastin Ratio 0.9 Anion Gap 6.0 mmol/L (3-11) Estimated GFR () 66.6 Estimated GFR (Non- 57.5 BUN/Creatinine Ratio 14.4 (10-20) Calcium Level 8.1 mg/dl (8.5-10.1) Total Bilirubin 0.4 mg/dl (0.2-1) Direct Bilirubin 0.1 mg/dl (0-0.2) Aspartate Amino Transf (AST/SGOT) 24 U/L (15-37) Alanine Aminotransferase (ALT/SGPT) 21 U/L (12-78) Alkaline Phosphatase 99 U/L (45-117) Troponin I < 0.015 ng/ml (0-0.045) Total Protein 7.3 gm/dl (6.4-8.2) Albumin 3.6 gm/dl (3.4-5.0) Influenza Type A Antigen Neg for Influ A (NEG) Influenza Type B Antigen Neg for Influ B (NEG) Laboratory results reviewed by me Medications Administered Medications (Trade) Dose Ordered Sig/James Route Start Time Stop Time Status Last Admin Dose Admin Acetaminophen (Tylenol Tab) 1,000 mg NOW STAT PO 07/12/17 18:32 07/12/17 18:33 DC 07/12/17 19:07 1,000 MG Sodium Chloride 500 ml @ 500 mls/hr Q1H STAT IV 07/12/17 18:40 07/12/17 19:39 DC 07/12/17 18:53 500 MLS/HR ECG Indication: nausea Rate (beats per minute): 67 Rhythm: normal sinus Findings: Q waves (Inferior), left axis deviation, other (Normal intervals) Comparison ECG Date: 09/13/16 Change: Patient's electrocardiogram interpreted by me. The EKG is not currently paced. ED Course 1816: The patient was evaluated in room C10. A complete history and physical exam was performed. 2000: I reevaluated the patient. Discussed results and discharge instructions: She verbalized understanding and agreement. The patient is ready for discharge. Medical Decision Triage Nursing notes reviewed. The patient is a 86 year old white female with a past medical history of CAD, TINY, HTN, pacemaker, HLD, MDD, and A fib who presents to the ED with a cc of a constant flu-like symptoms beginning two days ago. The patient's presentation and history were concerning for etiologies such as viral syndrome, otitis, pharyngitis, pneumonia, influenza, meningitis, urinary tract infection, sepsis, bacteremia, as well as others were entertained. Patient was seen and evaluated the bedside. Patient does have a significant cardiac history. Patient is only complaining of some URI type symptoms along with some mild nausea. Of note the patient's is currently hospitalized with the flu and the patient's son-in-law also has the flu. Patient has had a nonproductive cough as well. On exam the patient is well-appearing and in no apparent distress. Patient did have blood work completed, EKG, troponin, chest x-ray, as well. Patient was also given medications for symptoms. Patient's chest x-ray was clear. Patient's blood work was fairly unremarkable. Patient' s EKG showed that she was actually not paced and do not have type 1 AV block or pacing. Patient did have old Q waves noted. Patient's flu was negative. Patient was told to continue her prophylactic Tamiflu at home and to continue [id number] type medications for her discomfort. Patient was deemed suitable for outpatient follow-up and treatment at this time. Patient was given strict follow-up, discharge, and return precautions. All questions were answered. Patient was deemed suitable for outpatient follow-up at this time. Patient agreed with the plan of care and was safely discharged home. The chart was completed utilizing [employer] voice recognition software. Grammatical errors, random word insertions, pronoun errors, and incomplete sentences are an occasional consequence of this system due to software limitations, ambient noise, and hardware issues. Any formal questions or concerns about the content, text, or information contained within the body of this dictation should be directly addressed to the physician for clarification. Medication Reconcilliation Current Medication List: was personally reviewed by me Blood Pressure Screening Patient's blood pressure: Elevated blood pressure Blood pressure disposition: Referred to PCP Impression Primary Impression: Influenza-like symptoms Additional Impression: Upper respiratory infection Scribe Attestation The scribe's documentation has been prepared under my direction and personally reviewed by me in its entirety. I confirm that the note above accurately reflects all work, treatment, procedures, and medical decision making performed by me. Departure Information Dispostion Home / Self-Care Referrals Baltazar Strong M.D. (PCP) Patient Instructions ED Flu, ED Upper Resp Infec No Abx Tx, My [facility] Additional Instructions Please return to the emergency department if you have worsening or recurrent symptoms not amenable to at-home treatment. Please call for a follow-up appointment with her primary care physician. Please take your medications as prescribed. If you have other concerns and/or complaints please feel free to also call your primary care physician's office or return the ED for further evaluation, management, and treatment. You may take 650 mg every 6 hours as needed for pain/fever/discomfort. For your nasal congestion you may try saline nasal sprays. You may also try a humidifier and/or warm showers. Take your medications as prescribed. You have been examined and treated today on an emergency basis only. This is not a substitute for, or an effort to provide, complete comprehensive medical care. It is impossible to recognize and treat all injuries or illnesses in a single emergency department visit. It is therefore important that you follow up closely with [facility], your PCP, and/or your specialist(s). Call as soon as possible for an appointment. Thank you for your time and consideration. I look forward to speaking with you again soon. Please don't hesitate to call us if you have any questions. Problem Qualifiers Additional Impression: Upper respiratory infection URI type: unspecified URI Qualified Codes: J06.9 - Acute upper respiratory infection, unspecified
[2017-07-12 18:58] VITALS: O2SAT 88
--- NOTE | 2017-07-12 18:58 | DIAGNOSTIC IMAGING REPORT ---
CHEST ONE VIEW PORTABLE CLINICAL HISTORY: Fever. Sepsis. COMPARISON STUDY: Chest radiograph September 17, 2016. FINDINGS: Incidental note is made of severe osteoarthritis of the left glenohumeral joint. Dual-lead left pacemaker is in place. Cardiomediastinal silhouette is stable. Elevation of the right hemidiaphragm is unchanged. There is no evidence for pulmonary edema. There is no consolidation to suggest pneumonia. The appearance of the chest is unchanged. IMPRESSION: No acute cardiopulmonary findings. No change in appearance of the chest. Electronically signed by: Edwin Haynes M.D. 07/12/2017 6:57 PM Dictated Date/Time: 07/12/2017 6:56 PM
[2017-07-12 19:11] LABS: BASO % 0.4 %; BASO ABS # 0.04 K/uL (0-0.2); EOS % 0.7 %; EOS ABS # 0.06 K/uL (0-0.5); HEMATOCRIT 40.8 % (37-47); HEMOGLOBIN 13.5 g/dL (12.0-16.0); IG# 0.02 K/uL (0.00-0.02); LYMPH % 11.1 %; MEAN CELL VOLUME 95.6 fL (80-100); MEAN CORPUSCULAR HEMOGLOBIN 31.6 pg (25-34); MEAN CORPUSCULAR HGB CONC 33.1 g/dl (32-36); MEAN PLATELET VOLUME 10.7 fL (7.4-10.4); MONO % 11.4 %; MONO ABS # 1.02 K/uL (0.11-0.59); NEUT % 76.2 %; NEUT ABS # 6.83 K/uL (1.4-6.5); PLATELET COUNT 151 K/uL (130-400); RED CELL DISTRIBUTION WIDTH CV 13.6 % (11.5-14.5); RED CELL DISTRIBUTION WIDTH SD 46.8 fL (36.4-46.3); WHITE BLOOD COUNT 8.97 K/uL (4.8-10.8)
[2017-07-12 19:20] LABS: PTT PATIENT 23.3 SECONDS (21.0-31.0)
[2017-07-12] MEDS ORDERED: OSEL30CA PO (19:24)
[2017-07-12 19:31] LABS: ALBUMIN 3.6 gm/dl (3.4-5.0); ALT/SGPT 21 U/L (12-78); AST/SGOT 24 U/L (15-37); BLOOD UREA NITROGEN 13 mg/dl (7-18); CALCIUM 8.1 mg/dl (8.5-10.1); CARBON DIOXIDE 29 mmol/L (21-32); GLUCOSE 96 mg/dl (70-99); POTASSIUM 3.7 mmol/L (3.5-5.1); SODIUM 138 mmol/L (136-145)
[2017-07-12 19:36] LABS: ALKALINE PHOSPHATASE 99 U/L (45-117); TOTAL PROTEIN 7.3 gm/dl (6.4-8.2)
[2017-07-12 19:41] LABS: INFLUENZA B ANTIGEN Neg for Influ B (NEG)
[2017-07-12] MEDS ORDERED: POTA20TA13 PO (19:45)
[2017-07-12 19:56] VITALS: BP 146/90; PULSE 68; TEMP 36.8; O2SAT 93
[2017-07-12] MEDS ORDERED: METO-478 PO (20:12)
[2017-07-12] MEDS ORDERED: ATOR-26 PO (20:12)
[2017-07-12] MEDS ORDERED: CLON0.5T3 PO (20:12)
== END 2017-07-12 20:41 | disposition home or self-care (01) ==
LOC: C.EDB 17:54 → C.EDC 20:41
DX: J06.9 Acute upper respiratory infection, unspecified (principal); R05 Cough; R11.0 Nausea; I25.10 Atherosclerotic heart disease of native coronary artery without angina pectoris; I10 Essential (primary) hypertension; F41.1 Generalized anxiety disorder; E78.5 Hyperlipidemia, unspecified; K21.9 Gastro-esophageal reflux disease without esophagitis; I25.2 Old myocardial infarction; I48.0 Paroxysmal atrial fibrillation; Z79.899 Other long term (current) drug therapy; Z87.01 Personal history of pneumonia (recurrent)

== ENCOUNTER 2017-08-14 14:32 | Emergency (ER) | payer OTHER, MEDICARE ==
[~2017-08-14] VITALS: Ht 157.5 cm; Wt 92.5 kg
[~2017-08-14 14:32] MED LIST changes: +ATOR-26 PO; +CLON0.5T3 PO; -HYDR5SYP11 PO; +METO-478 PO; +OSEL30CA PO; -OXGN; +POTA20TA13 PO; -XPNINS1255 INH
[2017-08-14 14:36] VITALS: TEMP 36.6; Ht 157.5 cm; Wt 92.5 kg
[2017-08-14] MEDS ORDERED: ONDANSETRON INJ 2 MG/ML 2 ML VIAL IV STA (14:54)
[2017-08-14] MEDS ORDERED: MoRPHine SULFATE 10 MG/ML CARP/VIAL IV STA (14:54)
[2017-08-14] MEDS ORDERED: MoRPHine SULFATE 4 MG/ML 1 ML CARP\\VIAL ONE (15:10)
[2017-08-14 15:21] LABS: BASO % 0.4 %; BASO ABS # 0.04 K/uL (0-0.2); EOS % 2.6 %; EOS ABS # 0.26 K/uL (0-0.5); HEMATOCRIT 40.6 % (37-47); HEMOGLOBIN 13.4 g/dL (12.0-16.0); IG# 0.03 K/uL (0.00-0.02); LYMPH % 31.2 %; LYMPH ABS # 3.07 K/uL (1.2-3.4); MEAN CELL VOLUME 94.4 fL (80-100); MEAN CORPUSCULAR HEMOGLOBIN 31.2 pg (25-34); MONO % 9.7 %; MONO ABS # 0.95 K/uL (0.11-0.59); NEUT % 55.8 %; NEUT ABS # 5.49 K/uL (1.4-6.5); PLATELET COUNT 197 K/uL (130-400); RED CELL DISTRIBUTION WIDTH CV 13.6 % (11.5-14.5); RED CELL DISTRIBUTION WIDTH SD 46.9 fL (36.4-46.3); WHITE BLOOD COUNT 9.84 K/uL (4.8-10.8)
--- NOTE | 2017-08-14 15:41 | EMERGENCY ROOM VISIT NOTE ---
History First contact with patient: 14:41 Chief Complaint: KNEEPAIN Stated Complaint: LEFT KNEE SEVERE PAIN History of Present Illness The patient is a 86 year old female who presents to the Emergency Room with complaints of left knee and leg pain. The daughter who is with her reports that the patient has had a left total knee replacement performed by Dr. Jett Machuca approximately 22-24 years ago. She reports that the patient was told that she needs to have it replaced because of wear and tear. The patient was last seen in their office last March, and had a hinged brace applied to try to gain some additional time. The patient did fall in May and was seen here with imaging studies that were normal. Daughter reports that her pain has been progressively worsening over the past month. The patient has an appointment scheduled for tomorrow at [facility]. The patient cannot tolerate the pain, rating her discomfort a 9 out of 10. The patient usually takes oxycodone 5 mg every 4 hours at home. She has been doubling up her oxycodone because of the pain. The patient denies any recent injury to the knee since her fall. She currently denies any back pain. She has noticed some swelling of the leg. The patient has not noticed any redness or increased warmth about the knee. Review of Systems HEENT: Denies dizziness, visual problems, hearing loss, tinnitus. Denies difficulty swallowing or oral lesions. PULMONARY: Denies cough, shortness of breath, sputum production or hemoptysis. CARDIOVASCULAR: Denies chest pain, palpitations, dyspnea on exertion, orthopnea or peripheral edema. GASTROINTESTINAL: Denies diarrhea, constipation, nausea, vomiting, or abdominal pain. GENITOURINARY: Denies dysuria, frequency, urgency or nocturia. NEUROLOGIC: Denies history of epilepsy, CVA, TIA or chronic headaches. MUSCULOSKELETAL: History of osteoarthritis. SKIN: Denies rashes or lesions. PSYCHIATRIC: History of anxiety. ENDOCRINE: Denies history of diabetes or thyroid disorders. Past Medical/Surgical History Medical Problems: (1) Ambulatory dysfunction (2) Anxiety (3) Anxiety State Nos (4) CAD (coronary artery disease) (5) Congestive Heart Failure Nos (6) Coronary Atherosclerosis Of [place] Coronary Vessel (7) Depression (8) Depressive Disorder Nec (9) Dyslipidemia (10) GERD (gastroesophageal reflux disease) (11) GERD (gastroesophageal reflux disease) (12) History of pacemaker (13) HTN (hypertension) (14) Hyperlipidemia Nec/Nos (15) Hypertension Nos (16) Hypertension Nos (17) Morbid Obesity (18) Obstructive Sleep Apnea (Adult) (Pediatric) (19) Old Myocardial Infarct (20) Paroxysmal atrial fibrillation (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 Social History Smoking Status: Never Smoker Drug Use: none Housing Status: lives with family Occupation Status: retired Current/Historical Medications Scheduled Amlodipine (Norvasc), 10 MG PO DAILY Atorvastatin (Lipitor), 1 TAB PO QAM Furosemide (Lasix), 40 MG PO QAM Metoprolol Succinate (Toprol Xl), 1 TAB PO DAILY Mirtazapine Soltab (Remeron Soltab), 15 MG PO HS Oseltamivir Phosphate (Tamiflu), 1 CAP PO BID Potassium Chloride Microencaps (Potassium Chloride Er), 20 MEQ PO DAILY Sertraline (Zoloft), 50 MG PO QID Scheduled PRN Clonazepam (Klonopin), 1 TAB PO 5XD PRN for Anxiety Loperamide Hcl (Imodium), 2 MG PO UD PRN for Diarrhea Nitroglycerin (Nitrostat), 0.4 MG UT UD PRN for Chest Pain Omeprazole (Prilosec), 40 MG PO DAILY PRN for Dyspepsia Oxycodone Ir (Roxicodone Ir), 5 MG PO Q4H PRN for Pain Physical Exam Vital Signs Date Time Temp Pulse Resp B/P (MAP) Pulse Ox O2 Delivery O2 Flow Rate FiO2 08/14/17 15:23 94 Nasal Cannula 2.0 08/14/17 14:36 36.6 73 20 171/75 90 Room Air Physical Exam CONSTITUTIONAL: Healthy and well nourished. Alert and oriented X 3 with positive affect. Patient appears in moderate discomfort from pain. HEENT: Normocephalic, atraumatic. Pupils equal, round and reactive. No scleral icterus or conjunctival injection/pallor. NECK: Full active range of motion without discomfort. No meningeal signs noted. RESPIRATORY: Clear to auscultation bilaterally with no wheezing, crackles, rhonchi or stridor. CARDIOVASCULAR: Regular rate and rhythm with no murmurs, rubs or gallops. GASTROINTESTINAL: Bowel sounds present in all quadrants. Soft and nontender to palpation. MUSCULOSKELETAL: Examination shows generalized tenderness to palpation about the knee. No obvious soft tissue erythema or increased warmth to palpation. Any attempted range of motion of the knee worsens her discomfort. Gentle logroll does not cause any hip discomfort. INTEGUMENTARY: No rash or other significant dermatologic conditions noted. NEUROLOGIC: No focal neurologic deficits noted. Left foot and toes are sensory intact. Medical Decision & Procedures ER Provider Diagnostic Interpretation: Knee x-rays and venous ultrasound of the left lower extremity were ordered and pending at the time of transfer of care at change of shift. Laboratory Results 08/14/17 15:10 Red Blood Count 4.30, Mean Corpuscular Volume 94.4, Mean Corpuscular Hemoglobin 31.2, Mean Corpuscular Hemoglobin Concent 33.0, Mean Platelet Volume 10.0, Neutrophils (%) (Auto) 55.8, Lymphocytes (%) (Auto) 31.2, Monocytes (%) (Auto) 9.7, Eosinophils (%) (Auto) 2.6, Basophils (%) (Auto) 0.4, Neutrophils # (Auto) 5.49, Lymphocytes # (Auto) 3.07, Monocytes # (Auto) 0.95, Eosinophils # (Auto) 0.26, Basophils # (Auto) 0.04 Test 08/14/17 15:10 White Blood Count 9.84 K/uL (4.8-10.8) Red Blood Count 4.30 M/uL (4.2-5.4) Hemoglobin 13.4 g/dL (12.0-16.0) Hematocrit 40.6 % (37-47) Mean Corpuscular Volume 94.4 fL (80-100) Mean Corpuscular Hemoglobin 31.2 pg (25-34) Mean Corpuscular Hemoglobin Concent 33.0 g/dl (32-36) Platelet Count 197 K/uL (130-400) Mean Platelet Volume 10.0 fL (7.4-10.4) Neutrophils (%) (Auto) 55.8 % Lymphocytes (%) (Auto) 31.2 % Monocytes (%) (Auto) 9.7 % Eosinophils (%) (Auto) 2.6 % Basophils (%) (Auto) 0.4 % Neutrophils # (Auto) 5.49 K/uL (1.4-6.5) Lymphocytes # (Auto) 3.07 K/uL (1.2-3.4) Monocytes # (Auto) 0.95 K/uL (0.11-0.59) Eosinophils # (Auto) 0.26 K/uL (0-0.5) Basophils # (Auto) 0.04 K/uL (0-0.2) RDW Standard Deviation 46.9 fL (36.4-46.3) RDW Coefficient of Variation 13.6 % (11.5-14.5) Immature Granulocyte % (Auto) 0.3 % Immature Granulocyte # (Auto) 0.03 K/uL (0.00-0.02) The above labs were reviewed. Medications Administered Medications (Trade) Dose Ordered Sig/James Route Start Time Stop Time Status Last Admin Dose Admin Ondansetron HCl (Zofran Inj) 4 mg NOW STAT IV 08/14/17 14:54 08/14/17 14:56 DC 08/14/17 15:13 4 MG Morphine Sulfate (MoRPHine SULFATE INJ) 8 mg STK-MED ONCE .ROUTE 08/14/17 15:10 08/14/17 15:11 DC 08/14/17 15:13 8 MG ED Course Patient history and physical exam were performed. Nurse's notes were reviewed. Vital signs were reviewed and were normal. In order to provide better titration of pain control, I did suggest establishing an IV. IV access was established, and labs were drawn. X-rays of the left knee, along with venous ultrasound of the left lower extremity, were ordered, and were pending at the time of transfer of care to Marcus Amato PA-C at change of shift. Please see his dictation for further treatment and final disposition. Medical Decision Medication Reconcilliation Current Medication List: was personally reviewed by me Blood Pressure Screening Patient's blood pressure: Normal blood pressure Impression Primary Impression: Left knee pain Additional Impression: History of total left knee replacement Departure Information Referrals Baltazar Strong M.D. (PCP) Patient Instructions My [facility] Problem Qualifiers Primary Impression: Left knee pain Chronicity: chronic Qualified Codes: M25.562 - Pain in left knee; G89.29 - Other chronic pain
[2017-08-14 15:45] LABS: CALCIUM 8.6 mg/dl (8.5-10.1); CREATININE 0.93 mg/dl (0.60-1.20); POTASSIUM 4.1 mmol/L (3.5-5.1)
--- NOTE | 2017-08-14 16:05 | DIAGNOSTIC IMAGING REPORT ---
L VENOUS DOPP LOWER EXT UNILAT HISTORY: 86 years-old Female LLE pain acute left lower extremity pain COMPARISON: Duplex venous Doppler study 02/05/2010 TECHNIQUE: Multiple real-time sonographic images of the left lower extremity were obtained assessing grayscale appearance, color and spectral flow FINDINGS: Within the left popliteal fossa there is a complex hypoechoic ovoid structure, 2.3 x 3.9 x 1.7 cm suggesting complex Roa's cyst. There is normal flow, compressibility, phasicity and augmentation of the left lower extremity deep venous structures. IMPRESSION: No sonographic evidence of deep venous thrombosis. The above report was generated using voice recognition software. It may contain grammatical, syntax or spelling errors. Electronically signed by: Francois Tam M.D. 08/14/2017 4:04 PM Dictated Date/Time: 08/14/2017 4:02 PM
[2017-08-14] MEDS ORDERED: MoRPHine SULFATE 2 MG/ML CARP IV STA (16:16)
[2017-08-14 16:27] VITALS: O2SAT 93
--- NOTE | 2017-08-14 16:27 | EMERGENCY ROOM VISIT NOTE ---
History First contact with patient: 16:01 Chief Complaint: KNEEPAIN Stated Complaint: LEFT KNEE SEVERE PAIN History of Present Illness Pt. Case was signed out to me at time of shift change. Please refer to Brayden Segundo PA-C note for H&P, ROS and pt course until time of shift change. Review of Systems Pt. Case was signed out to me at time of shift change. Please refer to Brayden Segundo PA-C note for H&P, ROS and pt course until time of shift change. Past Medical/Surgical History Medical Problems: (1) Ambulatory dysfunction (2) Anxiety (3) Anxiety State Nos (4) CAD (coronary artery disease) (5) Congestive Heart Failure Nos (6) Coronary Atherosclerosis Of [place] Coronary Vessel (7) Depression (8) Depressive Disorder Nec (9) Dyslipidemia (10) GERD (gastroesophageal reflux disease) (11) GERD (gastroesophageal reflux disease) (12) History of pacemaker (13) HTN (hypertension) (14) Hyperlipidemia Nec/Nos (15) Hypertension Nos (16) Hypertension Nos (17) Morbid Obesity (18) Obstructive Sleep Apnea (Adult) (Pediatric) (19) Old Myocardial Infarct (20) Paroxysmal atrial fibrillation (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 Social History Smoking Status: Never Smoker Drug Use: none Housing Status: lives with family Occupation Status: retired Current/Historical Medications Scheduled Amlodipine (Norvasc), 10 MG PO DAILY Atorvastatin (Lipitor), 1 TAB PO QAM Furosemide (Lasix), 40 MG PO QAM Metoprolol Succinate (Toprol Xl), 1 TAB PO DAILY Mirtazapine Soltab (Remeron Soltab), 15 MG PO HS Oseltamivir Phosphate (Tamiflu), 1 CAP PO BID Potassium Chloride Microencaps (Potassium Chloride Er), 20 MEQ PO DAILY Sertraline (Zoloft), 50 MG PO QID Scheduled PRN Clonazepam (Klonopin), 1 TAB PO 5XD PRN for Anxiety Loperamide Hcl (Imodium), 2 MG PO UD PRN for Diarrhea Nitroglycerin (Nitrostat), 0.4 MG UT UD PRN for Chest Pain Omeprazole (Prilosec), 40 MG PO DAILY PRN for Dyspepsia Oxycodone Ir (Roxicodone Ir), 5 MG PO Q4H PRN for Pain Physical Exam Vital Signs Date Time Temp Pulse Resp B/P (MAP) Pulse Ox O2 Delivery O2 Flow Rate FiO2 08/14/17 18:06 75 16 134/76 91 08/14/17 16:27 93 Nasal Cannula 2.0 08/14/17 16:27 62 16 136/80 93 Nasal Cannula 2.0 08/14/17 15:23 94 Nasal Cannula 2.0 08/14/17 14:36 36.6 73 20 171/75 90 Room Air Physical Exam Pt. Case was signed out to me at time of shift change. Please refer to Brayden Segundo PA-C note for H&P, ROS and pt course until time of shift change. Medical Decision & Procedures ER Provider Diagnostic Interpretation: L VENOUS DOPP LOWER EXT UNILAT HISTORY: 86 years-old Female LLE pain acute left lower extremity pain COMPARISON: Duplex venous Doppler study 02/05/2010 TECHNIQUE: Multiple real-time sonographic images of the left lower extremity were obtained assessing grayscale appearance, color and spectral flow FINDINGS: Within the left popliteal fossa there is a complex hypoechoic ovoid structure, 2.3 x 3.9 x 1.7 cm suggesting complex Roa's cyst. There is normal flow, compressibility, phasicity and augmentation of the left lower extremity deep venous structures. IMPRESSION: No sonographic evidence of deep venous thrombosis. The above report was generated using voice recognition software. It may contain grammatical, syntax or spelling errors. Electronically signed by: Francois Tam M.D. 08/14/2017 4:04 PM Dictated Date/Time: 08/14/2017 4:02 PM L KNEE 3 VIEWS HISTORY: 86 years-old Female L knee pain acute left knee pain COMPARISON: Duplex venous Doppler study of same day, left knee radiographs 04/11/2016 TECHNIQUE: AP, lateral and sunrise views of the left knee. FINDINGS: Left knee arthroplasty in place with redemonstration of the proximal tibia demonstrating anterior translation of approximately 8 mm in relation to the distal femur. There is also mild flexion of the knee on the lateral view which limits evaluation. Moderate sized joint effusion. Peripheral vascular disease. Osteopenic appearance of the bones without acute fracture or subluxation. IMPRESSION: 1. No acute fracture identified. 2. Left knee total joint arthroplasty noted, again with mild anterior translation of the proximal tibia in relation to the distal femur. Unchanged from comparison. 3. Moderate joint effusion. The above report was generated using voice recognition software. It may contain grammatical, syntax or spelling errors. Electronically signed by: Francois Tam M.D. 08/14/2017 4:25 PM Dictated Date/Time: 08/14/2017 4:22 PM L LOWER EXTREMITY WITHOUT HISTORY: 86 years-old Female L knee pain acute left knee pain COMPARISON: Left knee radiographs of same day and also 05/24/2017. CT of the left lower extremity 04/11/2016 TECHNIQUE: Multiple axial CT images of the left lower extremity were obtained without contrast. A dose lowering technique was used consistent with the principals of ALARA. FINDINGS: Bones appear moderately demineralized. Left knee arthroplasty with evidence of prior patellar resurfacing. Anterolateral subluxation of the proximal tibia in relation to the distal femur is redemonstrated. Again noted is a peripherally sclerotic lucent expansile lesion involving the lateral femoral condyle proximal to the distal femoral prosthesis measuring 3.4 x 3.2 x 3.6 cm nicely seen on image 160 series 3 and image 44 series 301, this lesion previously measured up to 3.1 cm in AP and transverse dimensions. Mild associated endosteal scalloping with cortical thinning. No definite cortical breakthrough or associated soft tissue mass identified. The previously described pathologic fracture is not identified. No definite acute fracture is identified. Streak artifact from joint arthroplasty limits the study. Large joint effusion with peripheral and internal hyperdensities redemonstrated. Hyperattenuating material is also noted within a 2.8 x 1.6 x 3.4 cm Roa's cyst. Vascular calcifications are noted. IMPRESSION: 1. Left knee total joint arthroplasty and prior patellar resurfacing with redemonstration of anterolateral subluxation of the tibial component in relation to the distal femur. This appears unchanged from comparison study 04/11/2016. 2. Mildly increased size of peripherally sclerotic circumscribed lytic lesion of the lateral femoral condyle just proximal to the femoral prosthesis now measuring up to 3.4 cm in size. 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 Underlying intrinsic bone lesion is also within the differential. No soft tissue mass or definite pathologic fracture identified. Orthopedic consultation is advised. 3. Moderately demineralized appearance of the bones without acute fracture identified. The above report was generated using voice recognition software. It may contain grammatical, syntax or spelling errors. Electronically signed by: Francois Tam M.D. 08/14/2017 5:19 PM Dictated Date/Time: 08/14/2017 5:06 PM Laboratory Results 08/14/17 15:10 Red Blood Count 4.30, Mean Corpuscular Volume 94.4, Mean Corpuscular Hemoglobin 31.2, Mean Corpuscular Hemoglobin Concent 33.0, Mean Platelet Volume 10.0, Neutrophils (%) (Auto) 55.8, Lymphocytes (%) (Auto) 31.2, Monocytes (%) (Auto) 9.7, Eosinophils (%) (Auto) 2.6, Basophils (%) (Auto) 0.4, Neutrophils # (Auto) 5.49, Lymphocytes # (Auto) 3.07, Monocytes # (Auto) 0.95, Eosinophils # (Auto) 0.26, Basophils # (Auto) 0.04 08/14/17 15:10 Test 08/14/17 15:10 White Blood Count 9.84 K/uL (4.8-10.8) Red Blood Count 4.30 M/uL (4.2-5.4) Hemoglobin 13.4 g/dL (12.0-16.0) Hematocrit 40.6 % (37-47) Mean Corpuscular Volume 94.4 fL (80-100) Mean Corpuscular Hemoglobin 31.2 pg (25-34) Mean Corpuscular Hemoglobin Concent 33.0 g/dl (32-36) Platelet Count 197 K/uL (130-400) Mean Platelet Volume 10.0 fL (7.4-10.4) Neutrophils (%) (Auto) 55.8 % Lymphocytes (%) (Auto) 31.2 % Monocytes (%) (Auto) 9.7 % Eosinophils (%) (Auto) 2.6 % Basophils (%) (Auto) 0.4 % Neutrophils # (Auto) 5.49 K/uL (1.4-6.5) Lymphocytes # (Auto) 3.07 K/uL (1.2-3.4) Monocytes # (Auto) 0.95 K/uL (0.11-0.59) Eosinophils # (Auto) 0.26 K/uL (0-0.5) Basophils # (Auto) 0.04 K/uL (0-0.2) RDW Standard Deviation 46.9 fL (36.4-46.3) RDW Coefficient of Variation 13.6 % (11.5-14.5) Immature Granulocyte % (Auto) 0.3 % Immature Granulocyte # (Auto) 0.03 K/uL (0.00-0.02) Erythrocyte Sedimentation Rate 19 mm/hr (0-21) Anion Gap 6.0 mmol/L (3-11) Est Creatinine Clear Calc Drug Dose 45.1 ml/min Estimated GFR () 64.0 Estimated GFR (Non- 55.3 BUN/Creatinine Ratio 23.2 (10-20) Calcium Level 8.6 mg/dl (8.5-10.1) Medications Administered Medications (Trade) Dose Ordered Sig/James Route Start Time Stop Time Status Last Admin Dose Admin Ondansetron HCl (Zofran Inj) 4 mg NOW STAT IV 08/14/17 14:54 08/14/17 14:56 DC 08/14/17 15:13 4 MG Morphine Sulfate (MoRPHine SULFATE INJ) 8 mg STK-MED ONCE .ROUTE 08/14/17 15:10 08/14/17 15:11 DC 08/14/17 15:13 8 MG Morphine Sulfate (MoRPHine SULFATE INJ) 2 mg NOW STAT IV 08/14/17 16:16 08/14/17 16:18 DC 08/14/17 16:26 2 MG Medical Decision Patient was seen and evaluated as above. Pt. Case was signed out to me at time of shift change. Please refer to Brayden Segundo PA-C note for H&P, ROS and pt course until time of shift change. At that time I was awaiting the patient metabolic panel, x-ray and ultrasound results. These are as above. There was no fracture. Upon my examination of the patient's left knee there is pronounced tenderness at the anterior proximal tibia. Decision was made to obtain a CT to evaluate for occult fracture. There is no occult fracture however further wear of the knee was suspected and mild progression of the sclerotic bone lesion (she has follow up tomorrow with orthopedics in place). They were aware of this finding from 2016. Review of records indicated orthopedic consult at that time. She will be placed in the brace of which she was wearing previously and is to remain a minimal weightbearing status of this region. I did discuss at length with the patient and daughter different modalities moving forward to help her pain. The patient notes that she feels comfortable going home managing the pain as she does have an appointment tomorrow with the physician events assistant at [facility] in regard to her knee. The patient as well as the daughter did question about whether or not a second opinion would be appropriate and I informed him that they are certainly welcome to that and provide her the contact information for [facility] per their request. While here she was given morphine. She is resting comfortably. I do not suspect any emergent cause to her pain at this time. She appears stable for outpatient management. The patient was educated upon management, had questions answered prior to discharge , and was discharged home in good condition. No evidence of septic knee. In the evaluation and treatment of this patient, the following differential diagnoses were considered: Patellar Fracture, Tibial Plateau Fracture, Distal Femur Fracture, ACL Injury, PCL Injury, Collateral Ligament Injury, Pes Anserine Bursitis, [place] Fracture. I did attempt to call the patient back at 1200 on 08/15/17. I spoke the person listed as "person to notify" which was her daughter. Her daughter was present during the visit and will be taking her to her 1500 appointment today at [facility]. I noted how I recommended discussion regarding the "Mildly increased size of peripherally sclerotic circumscribed lytic lesion of the lateral femoral condyle just proximal to the femoral prosthesis now measuring up to 3.4 cm in size" at that appointment, which was noted on the paperwork I handed the patient /daughter. I just reiterated the importance of discussing this at the appointment. She noted that she would and was aware of this finding back in [address] was performed. Impression Primary Impression: Left knee pain Additional Impression: History of total left knee replacement Departure Information Dispostion Home / Self-Care Condition GOOD Referrals Baltazar Strong M.D. (PCP) Lane Denton MD Patient Instructions My [facility] Additional Instructions You have been treated in the Emergency Department for Knee Pain. Use previously prescribed medication for pain. For pain control, you can use the following [id number] medicines: - Regular strength (325mg/tab) Tylenol (acetaminophen) 2 tabs every 4-6 hours as needed. Do not exceed 12 tablets in a 24 hour period. Avoid taking more than 3 grams (3000 mg) of Tylenol per day. This includes any other sources of acetaminophen you may take on a regular basis. You have been provided the number for an Orthopaedic Surgeon. Please keep appt tomorrow Return to the Emergency Department if your current symptoms worsen despite treatment course outlined above. Problem Qualifiers Primary Impression: Left knee pain Chronicity: chronic Qualified Codes: M25.562 - Pain in left knee; G89.29 - Other chronic pain
--- NOTE | 2017-08-14 17:20 | DIAGNOSTIC IMAGING REPORT ---
L LOWER EXTREMITY WITHOUT HISTORY: 86 years-old Female L knee pain acute left knee pain COMPARISON: Left knee radiographs of same day and also 05/24/2017. CT of the left lower extremity 04/11/2016 TECHNIQUE: Multiple axial CT images of the left lower extremity were obtained without contrast. A dose lowering technique was used consistent with the principals of SEBLE. FINDINGS: Bones appear moderately demineralized. Left knee arthroplasty with evidence of prior patellar resurfacing. Anterolateral subluxation of the proximal tibia in relation to the distal femur is redemonstrated. Again noted is a peripherally sclerotic lucent expansile lesion involving the lateral femoral condyle proximal to the distal femoral prosthesis measuring 3.4 x 3.2 x 3.6 cm nicely seen on image 160 series 3 and image 44 series 301, this lesion previously measured up to 3.1 cm in AP and transverse dimensions. Mild associated endosteal scalloping with cortical thinning. No definite cortical breakthrough or associated soft tissue mass identified. The previously described pathologic fracture is not identified. No definite acute fracture is identified. Streak artifact from joint arthroplasty limits the study. Large joint effusion with peripheral and internal hyperdensities redemonstrated. Hyperattenuating material is also noted within a 2.8 x 1.6 x 3.4 cm Roa's cyst. Vascular calcifications are noted. IMPRESSION: 1. Left knee total joint arthroplasty and prior patellar resurfacing with redemonstration of anterolateral subluxation of the tibial component in relation to the distal femur. This appears unchanged from comparison study 04/11/2016. 2. Mildly increased size of peripherally sclerotic circumscribed lytic lesion of the lateral femoral condyle just proximal to the femoral prosthesis now measuring up to 3.4 cm in size. 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 Underlying intrinsic bone lesion is also within the differential. No soft tissue mass or definite pathologic fracture identified. Orthopedic consultation is advised. 3. Moderately demineralized appearance of the bones without acute fracture identified. The above report was generated using voice recognition software. It may contain grammatical, syntax or spelling errors. Electronically signed by: Francois Tam M.D. 08/14/2017 5:19 PM Dictated Date/Time: 08/14/2017 5:06 PM
[2017-08-14 18:06] VITALS: BP 134/76; PULSE 75; O2SAT 91
== END 2017-08-14 18:07 | disposition home or self-care (01) ==
LOC: C.EDB 14:33 → C.EDD 18:07
DX: M25.562 Pain in left knee (principal); G89.29 Other chronic pain; Z96.652 Presence of left artificial knee joint; F41.9 Anxiety disorder, unspecified; K21.9 Gastro-esophageal reflux disease without esophagitis; F32.9 Major depressive disorder, single episode, unspecified; I25.10 Atherosclerotic heart disease of native coronary artery without angina pectoris; E78.5 Hyperlipidemia, unspecified; Z95.0 Presence of cardiac pacemaker; I10 Essential (primary) hypertension; E66.01 Morbid (severe) obesity due to excess calories; G47.33 Obstructive sleep apnea (adult) (pediatric); I25.2 Old myocardial infarction; I48.0 Paroxysmal atrial fibrillation; Z87.01 Personal history of pneumonia (recurrent); Z96.641 Presence of right artificial hip joint; Z79.899 Other long term (current) drug therapy

== ENCOUNTER → 2017-10-02 | Outpatient (CLI) | payer OTHER, MEDICARE ==
[2017-10-02 13:04] LABS: BASO % 0.5 %; BASO ABS # 0.04 K/uL (0-0.2); EOS % 1.8 %; EOS ABS # 0.15 K/uL (0-0.5); HEMATOCRIT 41.7 % (37-47); HEMOGLOBIN 13.4 g/dL (12.0-16.0); IG# 0.02 K/uL (0.00-0.02); LYMPH % 25.6 %; LYMPH ABS # 2.19 K/uL (1.2-3.4); MEAN CELL VOLUME 96.1 fL (80-100); MEAN CORPUSCULAR HEMOGLOBIN 30.9 pg (25-34); MEAN CORPUSCULAR HGB CONC 32.1 g/dl (32-36); MEAN PLATELET VOLUME 10.7 fL (7.4-10.4); MONO % 11.8 %; MONO ABS # 1.01 K/uL (0.11-0.59); NEUT % 60.1 %; NEUT ABS # 5.15 K/uL (1.4-6.5); PLATELET COUNT 226 K/uL (130-400); RED CELL DISTRIBUTION WIDTH CV 13.6 % (11.5-14.5); RED CELL DISTRIBUTION WIDTH SD 47.9 fL (36.4-46.3); WHITE BLOOD COUNT 8.56 K/uL (4.8-10.8)
[2017-10-02 14:39] LABS: BLOOD UREA NITROGEN 19 mg/dl (7-18); CALCIUM 8.9 mg/dl (8.5-10.1); CARBON DIOXIDE 27 mmol/L (21-32); CREATININE 1.01 mg/dl (0.60-1.20); GLUCOSE 94 mg/dl (70-99); POTASSIUM 4.4 mmol/L (3.5-5.1); SODIUM 142 mmol/L (136-145)
== END | disposition home or self-care (01) ==
LOC: C.LABBC 11:58
PROVIDERS: ATTEND Orthopaedic Surgery Adult Reconstructive Orthopaedic Surgery
DX: Z01.818 Encounter for other preprocedural examination (principal); T84.093A Other mechanical complication of internal left knee prosthesis, initial encounter; Y83.1 Surgical operation with implant of artificial internal device as the cause of abnormal reaction of the patient, or of later complication, without mention of misadventure at the time of the procedure; M25.562 Pain in left knee

== ENCOUNTER 2018-01-14 13:05 | Emergency (ER) | payer OTHER, MEDICARE ==
[~2018-01-14] VITALS: Ht 154.9 cm; Wt 91.7 kg
[~2018-01-14 13:05] MED LIST changes: -AMLO-114 PO; -ATOR-26 PO; -CLON0.5T3 PO; -FRS/40 PO; -OMEP40CA41 PO; -OXYC1TAB3 PO; -POTA20TA13 PO; -SERT-234 PO
[2018-01-14 13:14] VITALS: TEMP 36.4; Ht 154.9 cm; Wt 91.7 kg
[2018-01-14] MEDS ORDERED: KETOROLAC TROMETHAMINE 30 MG/ML VIAL IV STA ×2 (13:44→16:05)
--- NOTE | 2018-01-14 13:47 | EMERGENCY ROOM VISIT NOTE ---
History Report prepared by Timmy: Dolores Domingo Under the Supervision of: Dr. Stuart Huynh M.D. First contact with patient: 13:33 Chief Complaint: ARM PAIN Stated Complaint: CONFUSION,UPPER ARM PAIN History of Present Illness The patient is an 87 year old female who presents to the Emergency Room with complaints of persistent right arm pain that started 3 days ago. The patient rates her pain a 9/10 in severity. She notes the pain has worsened today. The pain worsens with movement. She denies any recent falls or injuries. The daughter states the patient has been more confused about taking her daily medications. She denies chest pain, headache, neck pain, numbness, or weakness. She is short of breath but daughter states it is no more than usual. The patient is not on blood thinners. Source of History: patient Onset: 3 days ago Position: arm (right) Symptom Intensity: 9/10 Modifying Factors (Worsening): movement Associated Symptoms: No headache, No neck pain, No chest pain, No weakness, No numbness Review of Systems See HPI for pertinent positives & negatives. A total of 10 systems reviewed and were otherwise negative. Past Medical & Surgical Medical Problems: (1) Ambulatory dysfunction (2) Anxiety (3) Anxiety State Nos (4) CAD (coronary artery disease) (5) Congestive Heart Failure Nos (6) Coronary Atherosclerosis Of [place] Coronary Vessel (7) Depression (8) Depressive Disorder Nec (9) Dyslipidemia (10) GERD (gastroesophageal reflux disease) (11) GERD (gastroesophageal reflux disease) (12) History of pacemaker (13) HTN (hypertension) (14) Hyperlipidemia Nec/Nos (15) Hypertension Nos (16) Hypertension Nos (17) Morbid Obesity (18) Obstructive Sleep Apnea (Adult) (Pediatric) (19) Old Myocardial Infarct (20) Paroxysmal atrial fibrillation (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 Nurse's notes were reviewed and I agree with. Family History Patient reports no known family medical history. Social History Smoking Status: Never Smoker Drug Use: none Housing Status: lives with family Occupation Status: retired Current/Historical Medications Scheduled Amlodipine (Norvasc), 10 MG PO DAILY Atorvastatin (Lipitor), 1 TAB PO QAM Furosemide (Lasix), 40 MG PO QAM Metoprolol Succinate (Toprol Xl), 50 MG PO DAILY Mirtazapine Soltab (Remeron Soltab), 15 MG PO HS Omeprazole (Prilosec), 40 MG PO DAILY Potassium Chloride Microencaps (Potassium Chloride Er), 20 MEQ PO DAILY Sertraline (Zoloft), 50 MG PO QID Scheduled PRN Clonazepam (Klonopin), 1 TAB PO BID PRN for Anxiety Loperamide Hcl (Imodium), 2 MG PO UD PRN for Diarrhea Nitroglycerin (Nitrostat), 0.4 MG UT UD PRN for Chest Pain Oxycodone Ir (Roxicodone Ir), 5 MG PO Q4H PRN for Pain Allergies Coded Allergies: Promethazine (Verified Allergy, Intermediate, SHORTNESS OF BREATH, 01/14/18) Respiratory depression Lisinopril (Verified Allergy, Unknown, FACIAL SWELLING, 01/14/18) Salicylates (Verified Allergy, Unknown, PT WAS ON ASA PRIOR TO ADMIT., 01/14) Simvastatin (Verified Allergy, Unknown, 01/14/18) Physical Exam Vital Signs Date Time Temp Pulse Resp B/P (MAP) Pulse Ox O2 Delivery O2 Flow Rate FiO2 01/14/18 16:33 62 18 120/72 90 01/14/18 15:29 68 18 113/76 90 Room Air 01/14/18 13:14 36.4 72 18 174/94 90 Room Air Physical Exam General: Non-ill appearing older female in no acute distress. HEENT: Normal cephalic atraumatic. Pupils are equal round and reactive to light. Extraocular movements are intact. Oropharynx is pink with moist mucous membranes. No swelling of the mouth lips or tongue. Neck: Supple with a midline trachea. No meningeal signs or stiffness, no JVD or bruits. No Stridor. Chest: Clear to auscultation bilaterally. No wheezes or rhonchi. No increased work of breathing. Heart: regular rate and rhythm. Abdomen: Soft nontender, nondistended without rebound guarding or rigidity. Extremities: No cyanosis clubbing or edema. No calf tenderness or assymetry. Severe right arm pain in right proximal ar, with any movement. Distally in hand and wrist she has normal motor and sensation. Good capillary refill and normal pulse. Spine/Back. Non tender to palpation. No CVA tenderness Skin: Good turgor without rashes. Neurologic exam: Alert and oriented X3. Cranial nerves two through 12 are intact. Motor and sensation are intact and symmetrical throughout. Medical Decision & Procedures ER Provider Diagnostic Interpretation: Radiology results as stated below per my review and radiologist interpretation: RIGHT HUMERUS 4 VIEWS HISTORY: rt mid humerus pain COMPARISON: None. FINDINGS: There is no fracture or dislocation. Soft tissues are unremarkable. Moderate osteoarthritis of the glenohumeral joint. The visualized right clavicle is intact. IMPRESSION: No fracture or dislocation within the right humerus. Electronically signed by: Bello Chilel M.D. 01/14/2018 2:31 PM Dictated Date/Time: 01/14/2018 2:17 PM SINGLE VIEW CHEST CLINICAL HISTORY: Atypical chest pain. FINDINGS: An AP, portable, upright chest radiograph is compared to study dated 07/12/2017.Correlation is made with chest CT dated 05/24/2008. The examination is degraded by portable technique, apical lordotic positioning, and patient rotation. A 2-lead cardiac pacemaker is unchanged in position. The heart is enlarged and there is atherosclerotic calcification of the thoracic aorta. There is pulmonary vascular congestion. There are low lung volumes and bibasilar atelectasis. Chronic elevation right hemidiaphragm is unchanged. Trace pleural effusions are suspected. No pneumothorax is seen. The skeletal structures are osteopenic. Advanced degenerative change is noted in the thoracic spine and left shoulder. IMPRESSION: 1. Cardiomegaly and cardiac pacemaker with evidence of mild congestive failure. 2. Low lung volumes and bibasilar atelectasis. Trace pleural effusions are suspected. Electronically signed by: Roel Yang M.D. 01/14/2018 2:17 PM Dictated Date/Time: 01/14/2018 2:12 PM RIGHT UPPER ARM ULTRASOUND CLINICAL HISTORY: eval for hematoma, muscular tear biceps. Upper arm pain. COMPARISON STUDY: FINDINGS: Real-time sonographic imaging of the right upper arm was performed with automotive leasing sales representative images. There is fluid surrounding the optimal biceps muscle. This suggest a tear at the musculotendinous junction. IMPRESSION: Fluid surrounding the proximal biceps muscle consistent with tear at the musculotendinous junction. Follow-up nonemergent MRI can be performed to evaluate the the grade and exact location of the tear. Electronically signed by: Bello Chilel M.D. 01/14/2018 3:12 PM Dictated Date/Time: 01/14/2018 3:05 PM Laboratory Results 01/14/18 13:46 Red Blood Count 4.51, Mean Corpuscular Volume 90.2, Mean Corpuscular Hemoglobin 28.2, Mean Corpuscular Hemoglobin Concent 31.2, Mean Platelet Volume 10.0, Neutrophils (%) (Auto) 67.8, Lymphocytes (%) (Auto) 21.0, Monocytes (%) (Auto) 10.2, Eosinophils (%) (Auto) 0.6, Basophils (%) (Auto) 0.2, Neutrophils # (Auto ) 7.65, Lymphocytes # (Auto) 2.37, Monocytes # (Auto) 1.15, Eosinophils # (Auto ) 0.07, Basophils # (Auto) 0.02 01/14/18 13:46 Test 01/14/18 13:46 01/14/18 13:54 White Blood Count 11.28 K/uL (4.8-10.8) Red Blood Count 4.51 M/uL (4.2-5.4) Hemoglobin 12.7 g/dL (12.0-16.0) Hematocrit 40.7 % (37-47) Mean Corpuscular Volume 90.2 fL (80-100) Mean Corpuscular Hemoglobin 28.2 pg (25-34) Mean Corpuscular Hemoglobin Concent 31.2 g/dl (32-36) Platelet Count 245 K/uL (130-400) Mean Platelet Volume 10.0 fL (7.4-10.4) Neutrophils (%) (Auto) 67.8 % Lymphocytes (%) (Auto) 21.0 % Monocytes (%) (Auto) 10.2 % Eosinophils (%) (Auto) 0.6 % Basophils (%) (Auto) 0.2 % Neutrophils # (Auto) 7.65 K/uL (1.4-6.5) Lymphocytes # (Auto) 2.37 K/uL (1.2-3.4) Monocytes # (Auto) 1.15 K/uL (0.11-0.59) Eosinophils # (Auto) 0.07 K/uL (0-0.5) Basophils # (Auto) 0.02 K/uL (0-0.2) RDW Standard Deviation 46.4 fL (36.4-46.3) RDW Coefficient of Variation 14.1 % (11.5-14.5) Immature Granulocyte % (Auto) 0.2 % Immature Granulocyte # (Auto) 0.02 K/uL (0.00-0.02) Urine Color YELLOW Urine Appearance CLEAR (CLEAR) Urine pH 5.0 (4.5-7.5) Urine Specific [place] 1.011 (1.000-1.030) Urine Protein NEG (NEG) Urine Glucose (UA) NEG (NEG) Urine Ketones NEG (NEG) Urine Occult Blood NEG (NEG) Urine Nitrite NEG (NEG) Urine Bilirubin NEG (NEG) Urine Urobilinogen NEG (NEG) Urine Leukocyte Esterase SMALL (NEG) Urine WBC (Auto) 1-5 /hpf (0-5) Urine RBC (Auto) 0-4 /hpf (0-4) Urine Hyaline Casts (Auto) 1-5 /lpf (0-5) Urine Epithelial Cells (Auto) 10-20 /lpf (0-5) Urine Bacteria (Auto) NEG (NEG) Anion Gap 7.0 mmol/L (3-11) Est Creatinine Clear Calc Drug Dose 41.3 ml/min Estimated GFR () 60.4 Estimated GFR (Non- 52.1 BUN/Creatinine Ratio 18.1 (10-20) Calcium Level 8.7 mg/dl (8.5-10.1) Total Bilirubin 0.3 mg/dl (0.2-1) Direct Bilirubin 0.1 mg/dl (0-0.2) Aspartate Amino Transf (AST/SGOT) 23 U/L (15-37) Alanine Aminotransferase (ALT/SGPT) 21 U/L (12-78) Alkaline Phosphatase 122 U/L (45-117) Total Protein 8.0 gm/dl (6.4-8.2) Albumin 3.9 gm/dl (3.4-5.0) Lipase 167 U/L (73-393) Bedside Troponin I < 0.030 ng/ml (0-0.045) Laboratory studies as stated above per my review. Medications Administered Medications (Trade) Dose Ordered Sig/James Route Start Time Stop Time Status Last Admin Dose Admin Ketorolac Tromethamine (Toradol Inj) 15 mg NOW STAT IV 01/14/18 13:44 01/14/18 13:47 DC 01/14/18 13:54 15 MG Ketorolac Tromethamine (Toradol Inj) 15 mg NOW STAT IV 01/14/18 16:05 01/14/18 16:07 DC 01/14/18 16:05 15 MG ECG Per My Interpretation Indication: other (arm pain) Rate (beats per minute): 66 Rhythm: normal sinus Findings: no acute ischemic change, other (poor R wave progression, old inferior infarct) Comparison ECG Date: 07/12/17 Change: no significant change ED Course 1333: Past medical records reviewed. The patient was evaluated in room C12A, and a complete history and physical examination were performed. 1344: Ordered Toradol Inj 15 mg IV. 1445: I rechecked the patient. She is feeling better. She is on her way to ultrasound. 1520: I talked with the patient and her family. The daughter is comfortable going home. 1555: I spoke with Dr. Denton's Nurse of Orthopedic Surgery. The patient has an appointment with him tomorrow morning at 11am. Medical Decision Differential Diagnosis: Fracture, musculoskeletal, cardiac disease, electrolyte or metabolic abnormality. This patient comes in as described above. She has pain in her right biceps. No trauma. Even with just light touch she is tender. Distally she is neurologically neurovascular intact in the hand. She has good capillary refill and good pulse exam. There is no bruising or redness or warmth. The shoulder is unremarkable. IV access established EKG and x-rays were obtained there is no bony abnormality seen on the x-ray. EKG does not suggest acute coronary syndrome or arrhythmia. Her white count is mildly elevated only. There is no significant for metabolic abnormalities. She is nothing to suggest cardiac disease. I did an ultrasound and she does have findings consistent with a biceps tear. She strongly desires to go home and does not want to be admitted. I did call and make an appointment tomorrow to be seen by Dr. Denton and they have been seen by [facility] orthopedics before and she has an 11:00 appointment. Her she will use a sling if needed for comfort but be careful and do not use it if she is using a walker. Daughter feels that she can be safe at home. She can use ibuprofen 400 mg every 6 hours for pain and she has OxyIR from a previous pain/arthritis that she can use for breakthrough pain. She was warned that this can make her drowsy and be careful getting up and down. Patient and the daughter happy the plan and she was discharged to home with close follow-up tomorrow. Medication Reconcilliation Current Medication List: was personally reviewed by me Blood Pressure Screening Patient's blood pressure: Normal blood pressure Consults Time Called: [phone] Consulting Physician: Dr. Denton's Nurse Returned Call: [phone] Denton's Nurse of Orthopedic Surgery. The patient has an appointment with him tomorrow morning at 11am. Impression Primary Impression: Biceps muscle tear Additional Impression: Arm pain, right Scribe Attestation The scribe's documentation has been prepared under my direction and personally reviewed by me in its entirety. I confirm that the note above accurately reflects all work, treatment, procedures, and medical decision making performed by me. Departure Information Dispostion Home / Self-Care Referrals Baltazar Strong M.D. (PCP) Patient Instructions My [facility] Additional Instructions Rest May use Ibuprofen 400 mg every 6 hours as needed. Take with food Continue your current pain medications (OxyCodone) Use sling Be careful when getting up and down. REturn if: worsening of symptoms, fever, increasing pain, any new problems or concerns Follow-up with Dr. Denton tomorrow at 11:00 in the morning at [facility] orthopedic Problem Qualifiers
[2018-01-14 13:58] LABS: BASO % 0.2 %; BASO ABS # 0.02 K/uL (0-0.2); EOS % 0.6 %; EOS ABS # 0.07 K/uL (0-0.5); HEMATOCRIT 40.7 % (37-47); HEMOGLOBIN 12.7 g/dL (12.0-16.0); IG# 0.02 K/uL (0.00-0.02); LYMPH ABS # 2.37 K/uL (1.2-3.4); MEAN CELL VOLUME 90.2 fL (80-100); MEAN CORPUSCULAR HEMOGLOBIN 28.2 pg (25-34); MEAN CORPUSCULAR HGB CONC 31.2 g/dl (32-36); MONO % 10.2 %; MONO ABS # 1.15 K/uL (0.11-0.59); NEUT % 67.8 %; NEUT ABS # 7.65 K/uL (1.4-6.5); PLATELET COUNT 245 K/uL (130-400); RED CELL DISTRIBUTION WIDTH CV 14.1 % (11.5-14.5); RED CELL DISTRIBUTION WIDTH SD 46.4 fL (36.4-46.3); WHITE BLOOD COUNT 11.28 K/uL (4.8-10.8)
[2018-01-14] MEDS ORDERED: OMEP40CA41 PO (14:13)
[2018-01-14 14:18] LABS: ALBUMIN 3.9 gm/dl (3.4-5.0); CALCIUM 8.7 mg/dl (8.5-10.1); CREATININE 0.97 mg/dl (0.60-1.20); POTASSIUM 3.6 mmol/L (3.5-5.1)
--- NOTE | 2018-01-14 14:18 | DIAGNOSTIC IMAGING REPORT ---
SINGLE VIEW CHEST CLINICAL HISTORY: Atypical chest pain. FINDINGS: An AP, portable, upright chest radiograph is compared to study dated 07/12/2017.Correlation is made with chest CT dated 05/24/2008. The examination is degraded by portable technique, apical lordotic positioning, and patient rotation. A 2-lead cardiac pacemaker is unchanged in position. The heart is enlarged and there is atherosclerotic calcification of the thoracic aorta. There is pulmonary vascular congestion. There are low lung volumes and bibasilar atelectasis. Chronic elevation right hemidiaphragm is unchanged. Trace pleural effusions are suspected. No pneumothorax is seen. The skeletal structures are osteopenic. Advanced degenerative change is noted in the thoracic spine and left shoulder. IMPRESSION: 1. Cardiomegaly and cardiac pacemaker with evidence of mild congestive failure. 2. Low lung volumes and bibasilar atelectasis. Trace pleural effusions are suspected. Electronically signed by: Roel Yang M.D. 01/14/2018 2:17 PM Dictated Date/Time: 01/14/2018 2:12 PM
--- NOTE | 2018-01-14 14:33 | DIAGNOSTIC IMAGING REPORT ---
RIGHT HUMERUS 4 VIEWS HISTORY: rt mid humerus pain COMPARISON: None. FINDINGS: There is no fracture or dislocation. Soft tissues are unremarkable. Moderate osteoarthritis of the glenohumeral joint. The visualized right clavicle is intact. IMPRESSION: No fracture or dislocation within the right humerus. Electronically signed by: Bello Chilel M.D. 01/14/2018 2:31 PM Dictated Date/Time: 01/14/2018 2:17 PM
[2018-01-14] MEDS ORDERED: OXYC-90 PO (14:43)
[2018-01-14] MEDS ORDERED: METO-452 PO (14:45)
--- NOTE | 2018-01-14 15:14 | DIAGNOSTIC IMAGING REPORT ---
RIGHT UPPER ARM ULTRASOUND CLINICAL HISTORY: eval for hematoma, muscular tear biceps. Upper arm pain. COMPARISON STUDY: FINDINGS: Real-time sonographic imaging of the right upper arm was performed with medical billing representative images. There is fluid surrounding the optimal biceps muscle. This suggest a tear at the musculotendinous junction. IMPRESSION: Fluid surrounding the proximal biceps muscle consistent with tear at the musculotendinous junction. Follow-up nonemergent MRI can be performed to evaluate the the grade and exact location of the tear. Electronically signed by: Bello Chilel M.D. 01/14/2018 3:12 PM Dictated Date/Time: 01/14/2018 3:05 PM
[2018-01-14] MEDS ORDERED: FRS/40 PO (15:20)
[2018-01-14 16:33] VITALS: BP 120/72; PULSE 62; O2SAT 90
[2018-01-14] MEDS ORDERED: SERT-234 PO (16:52)
[2018-01-14] MEDS ORDERED: AMLO10TA3 PO (16:52)
[2018-01-14] MEDS ORDERED: POTA20TA13 PO (19:45)
[2018-01-14] MEDS ORDERED: ATOR-26 PO (20:12)
[2018-01-14] MEDS ORDERED: CLON0.5T9 PO (20:12)
== END 2018-01-14 16:34 | disposition home or self-care (01) ==
LOC: C.EDB 13:06 → C.EDC 16:34
DX: S46.211A Strain of muscle, fascia and tendon of other parts of biceps, right arm, initial encounter (principal); M79.601 Pain in right arm; X58.XXXA Exposure to other specified factors, initial encounter; F41.9 Anxiety disorder, unspecified; I50.9 Heart failure, unspecified; I25.10 Atherosclerotic heart disease of native coronary artery without angina pectoris; F32.9 Major depressive disorder, single episode, unspecified; E78.5 Hyperlipidemia, unspecified; I10 Essential (primary) hypertension; K21.9 Gastro-esophageal reflux disease without esophagitis; E66.01 Morbid (severe) obesity due to excess calories; G47.33 Obstructive sleep apnea (adult) (pediatric); I25.2 Old myocardial infarction; I48.91 Unspecified atrial fibrillation; Z88.8 Allergy status to other drugs, medicaments and biological substances

== ENCOUNTER 2018-12-17 15:04 | Inpatient (IN) ==
[2018-12-17 16:18] LABS: Basophils # (auto) 0.02 K/uL (0-0.2); Basophils % (auto) 0.1 %; Eosinophils # (auto) 0.02 K/uL (0-0.5); Eosinophils % (auto) 0.1 %; Hematocrit (blood only) 37.7 % (37-47); Hemoglobin 12.2 g/dL (12.0-16.0); Immature Granulocytes # (auto) 0.05 K/uL (0.00-0.02); Immature Granulocytes % (auto) 0.3 %; Lymphocytes # (auto) 1.16 K/uL (1.2-3.4); Mean Corpuscular Hgb Conc 32.4 g/dL (32-36); Mean Corpuscular Volume 93.1 fL (80-100); Mean Platelet Volume 10.9 fL (7.4-10.4); Monocytes # (auto) 1.19 K/uL (0.11-0.59); Monocytes % (auto) 8.2 %; Neutrophils # (auto) 12.04 K/uL (1.4-6.5); Neutrophils % (auto) 83.3 %; Platelet Count 180 K/uL (130-400); RDW Coefficient of Variation 14.8 % (11.5-14.5); RDW Standard Deviation 50.3 fL (36.4-46.3); Red Blood Count 4.05 M/uL (4.2-5.4); White Blood Count 14.48 K/uL (4.8-10.8)
[2018-12-17] MEDS ORDERED: SODIUM CHLORIDE 0.9% 500 ML IV SCH (16:30)
[2018-12-17 16:46] LABS: Alanine Aminotransferase 24 U/L (12-78); Albumin Globulin Ratio 0.8 (0.9-2); Albumin Level 3.4 gm/dl (3.4-5.0); Alkaline Phosphatase 116 U/L (45-117); BUN Creatinine Ratio 16.7 (10-20); Bilirubin,Total 0.6 mg/dl (0.2-1); Blood Urea Nitrogen 17 mg/dl (7-18); Calcium 8.4 mg/dl (8.5-10.1); Carbon Dioxide 26 mmol/L (21-32); Chloride 106 mmol/L (98-107); Est GFR (African American) 57.8; Est GFR (Non-African American) 49.9; Globulin 4.3 gm/dl (2.5-4.0); Glucose 113 mg/dl (70-99); Total Protein 7.7 gm/dl (6.4-8.2)
[2018-12-17 16:59] LABS: Aspartate Aminotransferase 26 U/L (15-37); Potassium 4.1 mmol/L (3.5-5.1); Sodium 142 mmol/L (136-145)
--- NOTE | 2018-12-17 17:10 | XRay Report ---
XR abdomen 2V w PA chest CLINICAL HISTORY: 88 years-old Female presenting with vomiting. TECHNIQUE: PA view of the chest and supine and upright views of the abdomen were obtained. COMPARISON: Chest x-ray from 10/01/2018. FINDINGS: Left subclavian pacer with leads in the right atrium and right ventricular apex remains in place. Ath erosclerosis and mild prominence of the thoracic aorta. Cardiac silhouette mildly enlarged, similar t o prior. Elevation of the right hemidiaphragm. Perihilar vascular prominence of bronchial wall cuffin g may be present. No focal opacity. No large effusion or pneumothorax. Moderate stool burden in the right colon. Nonobstructive bowel gas pattern. No gross pneumoperitoneum . Allowing for bowel gas and stool, no calcifications to suggest nephrolithiasis. Multiple pelvic phleb oliths. Degenerative changes of the spine. Severe degenerative changes of the left glenohumeral joint. Total right hip arthroplasty. Suspected underlying osteopenia. IMPRESSION: 1. Cardiomegaly with mild volume overload. No advanced congestive change or pulmonary edema. 2. Mildly low lung volumes. 3. No radiographic evidence of acute intra-abdominal pathology. 4. Stool burden may suggest constipation. Electronically signed by: Casey Bryan M.D. 12/17/2018 5:09 PM
[2018-12-17] MEDS ORDERED: ALBUT/IPRATROP 3MG/0.5MG NEB 3 ML VIAL NEB STA (19:24)
[2018-12-17 19:27] LABS: Appearance Urine Clear (Clear); Bacteria Urine Automated Negative (Negative); Bilirubin Urine Negative (Negative); Blood Urine Negative (Negative); Color Urine Yellow; Epithelial Cell Urine Auto >30 /lpf (0-5); Glucose Urine UA Negative (Negative); Ketones Urine Trace (Negative); Leukocyte Esterase Urine 1+ (Negative); Nitrite Urine Negative (Negative); Protein Urine Negative (Negative); RBC Urine Automated 0-4 /hpf (0-4); Urobilinogen Urine Negative (Negative)
--- NOTE | 2018-12-17 20:50 | Emergency Department Note ---
Entered by Renetta Lewis acting as a scribe for History of Present Illness General Chief complaint: Vomiting Stated complaint: SOB, VOMITING, DIZZINESS Time Seen by Provider: 12/17/18 16:03 Source: patient and family History of Present Illness Onset (ago): day(s) (this afternoon) Location: abdomen Pain Consistency: + other (episode) Maximum Pain Intensity: 5 Quality: + other (vomiting) Relieved By: not by cold therapy (ice) and not by other (heat) Associated symptoms: + chest pain and + other (abdominal pain that is now resolved, back pain); no nausea/vomiting (nausea) and no shortness of breath The patient is an 88 year old female who presents to the ED with complaints of an episode of vomiting starting this afternoon. The patients states that 3 days ago she laid down for a nap and when she woke up she was having left sided back pain. She reports that they tried using ice and heat with no relief. She states that it ended up wrapping around to the left side of her abdomen. She reports that last night it was so bad, it felt like she was having trouble breathing. She states that the pain moved up to her left chest at that time as well. The patient states that this morning she started having dry heaving and then ended up vomiting this afternoon. The patients daughter notes that the patient has been having a hard week at home as her has not been doing well. The patient notes that her last bowel movement was this morning. The patient denies a history of a bowel obstruction, current abdominal pain, nausea, and feeling more short of breath than usual. Home Medications Home Medications Medication Instructions Recorded Confirmed Type acetaminophen [Tylenol Extra 1,000 mg PO UD PRN 12/17/18 12/17/18 History Strength] albuterol sulfate [ProAir 1 inh INHALATION QID PRN 12/17/18 12/17/18 History RespiClick] amlodipine 10 mg PO QAM 12/17/18 12/17/18 History atorvastatin 80 mg PO QAM 12/17/18 12/17/18 History clonazepam 0.5 mg PO 5XD PRN 12/17/18 12/17/18 History furosemide 40 mg PO QAM 12/17/18 12/17/18 History loperamide [Imodium A-D] 2 mg PO Q3H PRN 12/17/18 12/17/18 History metoprolol succinate 75 mg PO DAILY 12/17/18 12/17/18 History mirtazapine 15 mg PO HS 12/17/18 12/17/18 History nitroglycerin [Nitrostat] 0.4 mg SUBLINGUAL UD 12/17/18 12/17/18 History omeprazole 40 mg PO QAM 12/17/18 12/17/18 History oxycodone 5 mg PO Q4H PRN 12/17/18 12/17/18 History potassium chloride 20 meq PO QAM 12/17/18 12/17/18 History sertraline 50 mg PO QID 12/17/18 12/17/18 History tiotropium-olodaterol [Stiolto 2 puff INHALATION QAM 12/17/18 12/17/18 History Respimat] Allergies Allergy/AdvReac Type Severity Reaction Status Date / Time promethazine Allergy Intermediate SHORTNESS Verified 01/14/18 14:39 OF BREATH lisinopril Allergy Unknown FACIAL Verified 01/14/18 14:39 SWELLING salicylates Allergy Unknown PT WAS ON Verified 01/14/18 14:39 ASA PRIOR TO ADMIT. simvastatin Allergy Unknown Verified 01/14/18 14:39 Past Med/Surg History Medical History CAD (coronary artery disease) (Chronic) Sleep apnea (Chronic) "on CPAP HS" Depression (Chronic) Anxiety (Chronic) Paroxysmal atrial fibrillation (Chronic) History of pacemaker (Chronic) GERD (gastroesophageal reflux disease) (Chronic) HTN (hypertension) (Chronic) Dyslipidemia (Chronic) Ambulatory dysfunction Farideh-prosthetic femur fracture at tip of prosthesis Biceps muscle tear (Acute) History of total left knee replacement (Acute) Pneumonia Surgical History History of carpal tunnel surgery (Resolved) "bilateral " Previous back surgery (Resolved) "HNP excision 1962" History of total right hip arthroplasty (Resolved) "january 2010" Family History Other No significant family history Social History marital status: Current Living Situation: Family current occupational status: retired Feels Safe at Home: Yes Smoking Status: Never smoker Review of Systems See HPI for pertinent positives & negatives. and A total of 10 systems reviewed and were otherwise negative Physical Exam Vital Signs Vital Signs - 24 hr 12/17/18 15:17 12/17/18 15:45 12/17/18 15:47 Temperature 36.8 C Temperature Source Oral Sepsis Recent Fever Within 48 Hours No Sepsis New/Unexplained Change in Mental Status No Sepsis Action Taken by Nursing No Action Required Pulse Rate 84 Pulse Rate [Finger] 73 Respiratory Rate 28 H 22 Respiratory Effort / Characteristics Blood Pressure 158/96 H Blood Pressure [Right Arm] Blood Pressure Mean 116 Blood Pressure Mean [Right Arm] Pulse Oximetry 94 91 93 Oxygen Delivery Method Room Air Nasal Cannula Nasal Cannula Oxygen Flow Rate 2 2 12/17/18 17:04 12/17/18 18:40 12/17/18 19:34 Temperature Temperature Source Sepsis Recent Fever Within 48 Hours Sepsis New/Unexplained Change in Mental Status Sepsis Action Taken by Nursing Pulse Rate 72 Pulse Rate [Finger] 70 72 67 Respiratory Rate 19 22 22 Respiratory Effort / Characteristics Spontaneous SOB on Exertion Blood Pressure Blood Pressure [Right Arm] 123/69 124/70 Blood Pressure Mean Blood Pressure Mean [Right Arm] 87 88 Pulse Oximetry 90 90 88 L Oxygen Delivery Method Nasal Cannula Nasal Cannula Room Air Oxygen Flow Rate 2 2 12/17/18 20:38 12/17/18 20:41 Temperature Temperature Source Sepsis Recent Fever Within 48 Hours Sepsis New/Unexplained Change in Mental Status Sepsis Action Taken by Nursing Pulse Rate Pulse Rate [Finger] Respiratory Rate Respiratory Effort / Characteristics Blood Pressure Blood Pressure [Right Arm] Blood Pressure Mean Blood Pressure Mean [Right Arm] Pulse Oximetry 88 L 92 Oxygen Delivery Method Nasal Cannula Oxymask Oxygen Flow Rate 2 3 CONSTITUTIONAL/VITAL SIGNS: Reviewed / noted above. GENERAL: Non-toxic in appearance. INTEGUMENTARY: Warm, dry, and [place]. HEAD: Normocephalic. EYES: without scleral icterus or trauma. ENT/OROPHARYNX: clear and moist. LYMPHADENOPATHY/NECK: Is supple without lymphadenopathy or meningismus. RESPIRATORY: Lungs clear and equal. CARDIOVASCULAR: Regular rate and rhythm. GI/ABDOMEN: Soft and nontender. No organomegaly or pulsatile mass. No rebound or guarding. Normal bowel sounds. EXTREMITIES: Warm and well perfused. BACK: No CVA tenderness. NEUROLOGICAL: Intact without focal deficits. PSYCHIATRIC: normal affect. MUSCULOSKELETAL: Normally developed with good muscle tone. Course 1607: Past medical records reviewed. The patient was evaluated in room A12B. A complete history and physical exam was performed. 1912: I reevaluated the patient and we are going to do a Duoneb treatment. 2026: I reevaluated the patient and updated her on her test results. I discussed the treatment plan with her. She verbally agrees and understands. 2103: I discussed the patient's case with Dr. Roxann Eller. He will evaluate the patient for further management. Consultations Consultation #1: I discussed the patient's case with Dr. Roxann Eller. He will evaluate the patient for further management. Time: 21:04 Administered Medications Discontinued Medications Albuterol (Duoneb) 3 ml NEB NOW STA Stop: 12/17/18 19:25 Last Admin: 12/17/18 19:33 Dose: 3 ml Documented by: [id number] Sodium Chloride (Nss) 500 mls @ 999 mls/hr IV .Q31M RASHAAD Stop: 12/17/18 17:00 Last Infusion: 12/17/18 17:04 Dose: 0 mls/hr Documented by: [id number] Admin: 12/17/18 16:33 Dose: 999 mls/hr Documented by: [id number] Medical Decision Making Differential Diagnosis Differential diagnoses includes but is not limited to gastritis, peptic ulcer disease, GERD, gallbladder disease, pancreatitis, small bowel obstruction, acute coronary syndrome, pericarditis, ischemic bowel, irritable bowel disease, irritable bowel syndrome, appendicitis, diverticulitis, malignancy, hernia, urinary tract infection, torsion, perforation, trauma, infectious. Medical Records Attestation: I reviewed the patient's medical records. Home Medications Current Medication List: was personally reviewed by me Laboratory Data Attestation: I reviewed the patient's lab results. Result diagrams: 12/17/18 15:55 12/17/18 15:55 Lab Results 12/17/18 12/17/18 12/17/18 Range/Units 15:55 15:55 19:10 WBC 14.48 H (4.8-10.8) K/uL RBC 4.05 L (4.2-5.4) M/uL Hgb 12.2 (12.0-16.0) g/dL Hct 37.7 (37-47) % MCV 93.1 (80-100) fL MCH 30.1 (25-34) pg MCHC 32.4 (32-36) g/dL RDW Std Deviation 50.3 H (36.4-46.3) fL RDW Coeff of Yemi 14.8 H (11.5-14.5) % Plt Count 180 (130-400) K/uL MPV 10.9 H (7.4-10.4) fL Immature Gran % (Auto) 0.3 % Neut % (Auto) 83.3 % Lymph % (Auto) 8.0 % [place] % (Auto) 8.2 % Eos % (Auto) 0.1 % Baso % (Auto) 0.1 % Immature Gran # (Auto) 0.05 H (0.00-0.02) K/uL Neut # (Auto) 12.04 H (1.4-6.5) K/uL Lymph # (Auto) 1.16 L (1.2-3.4) K/uL [place] # (Auto) 1.19 H (0.11-0.59) K/uL Eos # (Auto) 0.02 (0-0.5) K/uL Baso # (Auto) 0.02 (0-0.2) K/uL Sodium 142 (136-145) mmol/L Potassium 4.1 (3.5-5.1) mmol/L Chloride 106 (98-107) mmol/L Carbon Dioxide 26 (21-32) mmol/L Anion Gap 10.0 (3-11) BUN 17 (7-18) mg/dl Creatinine 1.00 (0.6-1.2) mg/dl Est Cr Clr Drug Dosing Not Reportable Est GFR ( Amer) 57.8 Est GFR (Non-Af Amer) 49.9 BUN/Creatinine Ratio 16.7 (10-20) Glucose 113 H (70-99) mg/dl Calcium 8.4 L (8.5-10.1) mg/dl Total Bilirubin 0.6 (0.2-1) mg/dl AST 26 (15-37) U/L ALT 24 (12-78) U/L Alkaline Phosphatase 116 (45-117) U/L Total Protein 7.7 (6.4-8.2) gm/dl Albumin 3.4 (3.4-5.0) gm/dl Globulin 4.3 H (2.5-4.0) gm/dl Albumin/Globulin Ratio 0.8 L (0.9-2) Lipase 87 (73-393) U/L Urine Color Yellow Urine Appearance Clear (Clear) Urine pH 7.0 (4.5-7.5) Ur Specific [place] 1.020 (1.000-1.030) Urine Protein Negative (Negative) Urine Glucose (UA) Negative (Negative) Urine Ketones Trace H (Negative) Urine Blood Negative (Negative) Urine Nitrite Negative (Negative) Urine Bilirubin Negative (Negative) Urine Urobilinogen Negative (Negative) Ur Leukocyte Esterase 1+ H (Negative) Urine WBC (Auto) 10-30 H (0-5) /hpf Urine RBC (Auto) 0-4 (0-4) /hpf U Hyaline Cast (Auto) 1-5 (0-5) /lpf U Epithel Cells (Auto) >30 H (0-5) /lpf Urine Bacteria (Auto) Negative (Negative) Imaging Data Radiologist's Impression: Radiology results as stated below per my review and the radiologist's interpretation: XR abdomen 2V w PA chest CLINICAL HISTORY: 88 years-old Female presenting with vomiting. TECHNIQUE: PA view of the chest and supine and upright views of the abdomen were obtained. COMPARISON: Chest x-ray from 10/01/2018. FINDINGS: Left subclavian pacer with leads in the right atrium and right ventricular apex remains in place. Atherosclerosis and mild prominence of the thoracic aorta. Cardiac silhouette mildly enlarged, similar to prior. Elevation of the right hemidiaphragm. Perihilar vascular prominence of bronchial wall cuffing may be present. No focal opacity. No large effusion or pneumothorax. Moderate stool burden in the right colon. Nonobstructive bowel gas pattern. No gross pneumoperitoneum. Allowing for bowel gas and stool, no calcifications to suggest nephrolithiasis. Multiple pelvic phleboliths. Degenerative changes of the spine. Severe degenerative changes of the left glenohumeral joint. Total right hip arthroplasty. Suspected underlying osteopenia. IMPRESSION: 1. Cardiomegaly with mild volume overload. No advanced congestive change or pulmonary edema. 2. Mildly low lung volumes. 3. No radiographic evidence of acute intra-abdominal pathology. 4. Stool burden may suggest constipation. Electronically signed by: Casey Bryan M.D. 12/17/2018 5:09 PM ECG Data Attestation: I personally reviewed and interpreted this ECG as follows: Indication: chest pain and vomiting Rate (beats per minute): 75 Rhythm: normal sinus Findings: no PAC, no PVC, no ST elevation and no ectopy Blood Pressure Blood Pressure Findings: Elevated blood pressure Blood Pressure Disposition: elevated BP felt to be situational MDM Narrative This is an 88-year-old female who presents to the ED with a chief complaint of having some stomach pain as well as some dry heaves this morning. The patient also reports some shortness of breath. Her shortness of breath is mostly chronic, however. The patient has had a slight cough last few days. Last bowel movement was this morning. She denies having any abdominal pains now. The daughter states that her pulse ox is normally around 90%. She does not have oxygen at home but has CPAP. She does have albuterol nebulizers. The patient's physical exam reveals a occasional cough. Minimal upper airway wheezing was noted. Otherwise the patient does appear to have some mild shortness of breath that seems to increase significantly with minimal exertion. An EKG shows normal sinus rhythm. White blood cell count was 14. Complete metabolic panel was normal. Lipase was negative. Chest x-ray reveals some mild volume overload and some constipation with an acute abdominal series. Otherwise no obvious pneumonia or pneumothorax. The patient denies any chest pains. The patient was treated with a DuoNeb treatment. She was given some IV fluids here. On reassessment, the patient continues to have desaturations off of oxygen. Her oxygen saturation dropped as low as 84% at times. On 2 L of oxygen, the patient's oxygen saturations maintained at least 90 to 92%. I spoke with the hospitalist for further inpatient evaluation and care. Impression & Plan Hypoxia, Acute bronchitis Discharge Plan Visit Data Chief Complaint: Vomiting Stated Complaint: SOB, VOMITING, DIZZINESS ED Provider: Biju Leon Discharge Problem: Hypoxia, Acute bronchitis Patient Disposition: Being Evaluated by Hospitalist Forms Stand Alone Forms: My [facility], Important Visit Information Prescriptions Prescriptions: No Action furosemide 40 mg tablet 40 mg PO QAM RF: 0 atorvastatin 80 mg tablet 80 mg PO QAM RF: 0 metoprolol succinate 50 mg tablet extended release 24 hr 75 mg PO DAILY RF: 0 clonazepam 0.5 mg tablet 0.5 mg PO 5XD PRN (Reason: Anxiety) RF: 0 sertraline 100 mg tablet 50 mg PO QID RF: 0 loperamide [Imodium A-D] 2 mg Tablet 2 mg PO Q3H PRN (Reason: Diarrhea) RF: 0 omeprazole 40 mg capsule,delayed release(DR/EC) 40 mg PO QAM RF: 0 acetaminophen [Tylenol Extra Strength] 500 mg Tablet 1,000 mg PO UD PRN (Reason: Pain) RF: 0 potassium chloride 20 mEq tablet,ER particles/crystals 20 meq PO QAM RF: 0 amlodipine 10 mg tablet 10 mg PO QAM RF: 0 nitroglycerin [Nitrostat] 0.4 mg Tablet, Sublingual 0.4 mg sublingual UD RF: 0 mirtazapine 15 mg tablet 15 mg PO HS RF: 0 oxycodone 5 mg tablet 5 mg PO Q4H PRN (Reason: Pain) RF: 0 ProAir RespiClick 90 mcg/actuation Aerosol Powdr Breath Activated 1 inh INHALATION QID PRN (Reason: asthma) RF: 0 Stiolto Respimat 2.5-2.5 mcg/actuation Mist 2 puff INHALATION QAM RF: 0 Referrals Referrals: Baltazar Strong MD [Primary Care Provider] - Discharge Problem: Acute bronchitis Qualifiers: Bronchitis organism: unspecified organism Qualified Code(s): J20.9 - Acute br onchitis, unspecified The scribe's documentation has been prepared under my direction and personally reviewed by me in its entirety. I confirm that the note above accurately reflects all work, treatment, procedures, and medical decision making performed by me.
[2018-12-17] MEDS ORDERED: clonazePAM 0.5 MG TAB PO STA (21:29)
[2018-12-17] MEDS ORDERED: clonazePAM 0.5 MG TAB PO ONE (21:32)
[2018-12-17 21:38] LABS: Partial Thromboplastin Ratio 0.9; Partial Thromboplastin Time 24.4 Seconds (21.0-31.0)
--- NOTE | 2018-12-17 21:47 | History & Physical Report ---
Date of Service December 17, 2018 Assessment & Plan (1) Shortness of breath: (2) Anxiety: (3) Back pain: Please refer to Dr. Amaya's addendum for assessment and plan. History of Present Illness Chief Complaint: Shortness of breath Primary Care Provider: Baltazar Strong MD 88-year-old female who presents to the ED for evaluation of shortness of breath. Daughter is the bedside who provides some history.Patient reports her symptoms began a few days ago. She has chronic exertional shortness of breath which has been mildly worse than her baseline. She also has a dry nonproductive cough which is unchanged from baseline as well. Patient reports associated left scapular/thoracic back pain radiating around into the left rib cage. Patient has been using a heating pad with improvement of the pain. Daughter reports the patient has history of underlying anxiety and depression. Reports that patient's is sick at home and daughter feels as though this is increasing her anxiety. Patient denies chest pain. No lightheadedness, dizziness, diaphoresis, syncopal fall events. Had some nausea and dry heaves today however attributed that to anxiety. No vomiting, diarrhea, abdominal pain. No other recent illnesses, fevers, chills. Patient denies any urinary symptoms. In the ED, patient was mildly hypoxic at 88 to 89% on room air. Daughter reports she typically is around 89-90%. Oxygen levels improved with 3L via oxymask. Labs are essentially unremarkable. CXR suggests mild volume overload. Patient was also given IVF and neb treatment. Allergies Allergy/AdvReac Type Severity Reaction Status Date / Time promethazine Allergy Intermediate SHORTNESS Verified 01/14/18 14:39 OF BREATH lisinopril Allergy Unknown FACIAL Verified 01/14/18 14:39 SWELLING salicylates Allergy Unknown PT WAS ON Verified 01/14/18 14:39 ASA PRIOR TO ADMIT. simvastatin Allergy Unknown Verified 01/14/18 14:39 Home Medications Home Medications Medication Instructions Recorded Confirmed Type acetaminophen [Tylenol Extra 1,000 mg PO UD PRN 12/17/18 12/17/18 History Strength] albuterol sulfate [ProAir 1 inh INHALATION QID PRN 12/17/18 12/17/18 History RespiClick] amlodipine 10 mg PO QAM 12/17/18 12/17/18 History atorvastatin 80 mg PO QAM 12/17/18 12/17/18 History clonazepam 0.5 mg PO 5XD PRN 12/17/18 12/17/18 History furosemide 40 mg PO QAM 12/17/18 12/17/18 History loperamide [Imodium A-D] 2 mg PO Q3H PRN 12/17/18 12/17/18 History metoprolol succinate 75 mg PO DAILY 12/17/18 12/17/18 History mirtazapine 15 mg PO HS 12/17/18 12/17/18 History nitroglycerin [Nitrostat] 0.4 mg SUBLINGUAL UD 12/17/18 12/17/18 History omeprazole 40 mg PO QAM 12/17/18 12/17/18 History oxycodone 5 mg PO Q4H PRN 12/17/18 12/17/18 History potassium chloride 20 meq PO QAM 12/17/18 12/17/18 History sertraline 50 mg PO QID 12/17/18 12/17/18 History tiotropium-olodaterol [Stiolto 2 puff INHALATION QAM 12/17/18 12/17/18 History Respimat] Past Med/Surg History Medical History Interstitial lung disease (Chronic) CAD (coronary artery disease) (Chronic) post op NE after CE Sleep apnea (Chronic) "on CPAP HS" Depression (Chronic) Anxiety (Chronic) Paroxysmal atrial fibrillation (Chronic) History of pacemaker (Chronic) GERD (gastroesophageal reflux disease) (Chronic) HTN (hypertension) (Chronic) Dyslipidemia (Chronic) Farideh-prosthetic femur fracture at tip of prosthesis (Resolved) Biceps muscle tear (Resolved) Surgical History History of carpal tunnel surgery (Resolved) "bilateral " Previous back surgery (Resolved) "HNP excision 1962" History of total right hip arthroplasty (Resolved) "january 2010" Family History Father Lung cancer Mother Stomach cancer Social History Preferred Language: Danish Communication Ability: Effective Casting Operator Required: No Beliefs That Will Affect Care: None marital status: Current Living Situation: Family Current Living Situation Comment: lives w/ dtr, Lorraine current occupational status: retired Other Information That Helps Us Care for You: No Feels Safe at Home: Yes Safety Concerns: Feels Safe At This Time Smoking Status: Never smoker Do You Dip or Chew Tobacco: No Hx Alcohol Use: No Hx Substance Use: No Review of Systems Review of Systems: ROS per HPI, all other systems reviewed and negative Physical Exam Constitutional: WD/WN, vitals as above anxious appearing Eyes: PERRL, conjunctivae normal, anicteric sclerae ENMT: external ear and nose normal, oropharynx normal Respiratory: + tachypneic; no respiratory distress Auscultation: + wheezes (faint, mild, end expiratory) Cardiovascular: Rate/Rhythm: regular rate and regular rhythm Vessels: normal peripheral pulses Extremities: no edema Gastrointestinal (Abdomen): normal bowel sounds, soft, nontender, no hepatosplenomegaly Musculoskeletal: no cyanosis or clubbing, extremities motor strength 5/5 tenderness over posterior ribs 6/7 Skin: no rashes, warm and dry Neurologic: PERRL, EOMI, accommodation nl, no face palsy, no dysarthria Psychiatric: Orientation: alert and oriented x 3 Affect: + anxious affect Results & Data Vital Signs (Past 12 Hours) Vital Signs Temp Pulse Pulse Resp BP BP Pulse Ox 12/17/18 20:41 92 12/17/18 20:38 88 L 12/17/18 19:34 67 22 88 L 12/17/18 18:40 72 22 124/70 90 12/17/18 17:04 72 70 19 123/69 90 12/17/18 15:47 73 22 93 12/17/18 15:45 91 12/17/18 15:17 36.8 C 84 28 H 158/96 H 94 Laboratory Results Short CBC 12/17/18 Range/Units 15:55 WBC 14.48 H (4.8-10.8) K/uL Hgb 12.2 (12.0-16.0) g/dL Hct 37.7 (37-47) % Plt Count 180 (130-400) K/uL BMP 12/17/18 15:55 Sodium 142 Potassium 4.1 Chloride 106 Carbon Dioxide 26 BUN 17 Creatinine 1.00 Glucose 113 H Calcium 8.4 L Liver Function 12/17/18 Range/Units 15:55 Total Bilirubin 0.6 (0.2-1) mg/dl AST 26 (15-37) U/L ALT 24 (12-78) U/L Alkaline Phosphatase 116 (45-117) U/L Albumin 3.4 (3.4-5.0) gm/dl Urine 12/17/18 Range/Units 19:10 Urine Color Yellow Urine Appearance Clear (Clear) Urine pH 7.0 (4.5-7.5) Ur Specific [place] 1.020 (1.000-1.030) Urine Protein Negative (Negative) Urine Glucose (UA) Negative (Negative) Diagnostic Findings CHEST/ABD XR IMPRESSION: 1. Cardiomegaly with mild volume overload. No advanced congestive change or pulmonary edema. 2. Mildly low lung volumes. 3. No radiographic evidence of acute intra-abdominal pathology. 4. Stool burden may suggest constipation. Code Status & VTE Plan VTE Prophylaxis Plan VTE Prophylaxis will be ordered: Yes Supervising Physician Co-Signing Physician Notes IM ATTENDING : Patient seen and examined. History obtained from patient, family, and records. Preceding documentation by GOMEZ Menendez reviewed. In addition, patient spiked a fever upon arrival on the floor. CT chest initial read: No pulmonary embolus. Cardiomegaly, pacemaker. Small left pleural effusion. Pleural-based lesion/masslike consolidation left lung base. Patchy bibasilar infiltrates and likely component pulmonary edema. Reduced lung volumes. Old girl with moderate disease. Degenerative changes related to left shoulder. FINAL ASSESSMENT AND PLAN as follows : Acute hypoxemic respiratory failure secondary to ILD exacerbation secondary to aspiration pneumonia hx nausea and emesis as per records Possible sepsis Hypertension elevated secondary to illness CAD as per records SSS sp PPM. paced rhythm. AMY on CPAP Anxiety, mood disorder; patient's daughter feels patient's uncontrolled anxiety over her home issues contributing to respiratory symptoms Medical telemetry Supplemental O2 Baseline ABG Cultures, check lactic acid; Unasyn transitioning to oral Augmentin course Steroids, nebs Pulmonary consult RE respiratory failure (Patient known to Dr. Bowling.) Anxiolytic as needed (with hold parameters for sedation/confusion) Patient daughter contemplating on inpatient psychiatric evaluation for patient's uncontrolled anxiety. DVT prophylaxis. Lovenox subcu Full code Patient's daughter requesting updates from providers. Ms. Jeni Cross, contact #[phone].
[2018-12-17 21:58] LABS: NT Pro B Type Natriuretic Pept 639 pg/ml (0-1800)
[2018-12-17] MEDS ORDERED: CALCIUM GLUCONATE 10% 1,000 MG in SODIUM CHLORIDE 0.9% 50 ML IV STA (22:12)
[2018-12-17] MEDS ORDERED: CALCIUM GLUCONATE 10% 10 ML VIAL IV ONE (22:22)
[2018-12-17] MEDS ORDERED: methylPREDNISolone 40 MG in SYRINGE 0 ML IV STA (22:59)
[2018-12-17 23:25] LABS: Base Excess ABG -0.6 mEq/L (-9-1.8); HCO3 ABG 23 mmol/L (19-24); PCO2 ABG 33 mmHg (35-46); PO2 ABG 65 mm/Hg (80-95); pH ABG 7.45 (7.35-7.45)
[2018-12-17 23:35] LABS: Allen Test Pos (Pos)
[2018-12-17 23:52] LABS: D Dimer 1270 ug/L FEU (0-500)
[2018-12-18] MEDS ORDERED: CARBOHYDRATES FOR HYPOGLYCEMIA PO PRN (00:35)
[2018-12-18] MEDS ORDERED: OXYCODONE HCL IR 5 MG TAB (IMMEDIATE RELEASE) PO PRN (00:35)
[2018-12-18] MEDS ORDERED: GLUCOSE 40% GEL 15 GM TUBE PO PRN (00:35)
[2018-12-18] MEDS ORDERED: INSULIN GLARGINE SOLOSTAR 100 UNITS/ML 3 ML PEN SQ STA (00:35)
[2018-12-18] MEDS ORDERED: GLUCAGON FOR INJ 1 MG VIAL SQ PRN (00:35)
[2018-12-18] MEDS ORDERED: METOCLOPRAMIDE HCL INJ 5 MG/ML 2 ML VIAL IV PRN (00:35)
[2018-12-18] MEDS ORDERED: DEXTROSE 50% 50 ML SYRINGE IV PRN (00:35)
[2018-12-18] MEDS ORDERED: GLUCOSE 10 TABS/TUBE PO PRN (00:35)
[2018-12-18] MEDS ORDERED: ACETAMINOPHEN 65 ML IV ONE (00:43)
[2018-12-18] MEDS ORDERED: ALBUMIN 25% 50 ML IV ONE (00:44)
[2018-12-18] MEDS ORDERED: DOXYCYCLINE HYCLATE 100 MG in DEXTROSE 5% 100 ML IV STA (00:45)
[2018-12-18] MEDS: clonazePAM 0.5 MG TAB PO PRN ×3 (01:12→22:38)
[2018-12-18] MEDS: INSULIN ASPART 100 UNITS/ML 3 ML PEN SC SCH ×5 (01:13→21:52)
[2018-12-18] MEDS ORDERED: XOPENEX/ATROVENT 1.25mg/0.5MG NEB COMBO NEB SCH (02:00)
[2018-12-18] MEDS ORDERED: OPTIRAY 320 125ml IV PRN (02:24)
[2018-12-18] MEDS: LEVALBUTEROL 1.25MG/0.5ML NEB INH SCH ×4 (02:34→19:03)
[2018-12-18] MEDS: IPRATROPIUM BROMIDE NEB SOLN 0.02% 2.5 ML VIAL INH SCH ×4 (02:34→19:03)
[2018-12-18] MEDS: AMLODIPINE BESYLATE 5 MG TAB PO SCH (02:43)
[2018-12-18] MEDS ORDERED: AMPICILLIN/SULBACTAM SOD 3,000 MG in 0.9 % SODIUM CHLORIDE 100 ML IV STA (02:57)
--- NOTE | 2018-12-18 07:03 | CT Scan Report ---
CT angio chest PE protocol CT DOSE: 674.87 mGy.cm HISTORY: 88 years-old Female with PE. Acute shortness of breath with chest pain TECHNIQUE: Multiple CTA images of the chest were obtained after the intravenous administration of 100 ml Optiray 320. Coronal and sagittal MIPS were obtained from the axial data set and were submitted for review. All measurements were obtained according to NASCET criteria. A dose lowering technique w as utilized adhering to the principles of ALARA. COMPARISON: Acute abdominal series radiographs 12/17/2018, CTA chest 05/24/2008. FINDINGS: CTA: Moderate cardiomegaly. No pericardial effusion. Coronary arterial calcifications are noted. Left subc lavian pacer. Moderate mixed plaque formation of the thoracic aorta with patency of the imaged great vessels. Tortuosity of the descending thoracic aorta with mild fusiform dilation of the mid descendin g thoracic aorta measuring up to 3.5 cm transversely. Pulmonary arterial tree is opacified to the lev el of the lower branches and is unremarkable without evidence of pulmonary thromboembolic disease. CT CHEST: 2.5 cm hypodense right thyroid nodule. Calcified subcarinal lymph nodes compatible with prior granulo matous disease. Trace left pleural effusion. Limited evaluation of the lung parenchyma secondary to r espiratory motion. Mild subsegmental bibasilar consolidation with groundglass opacities. There is a p leural-based consolidation of the left lower lobe on image 91 series 4 which measures 4.7 x 1.8 cm. T here is mild pulmonary vascular congestion. Central airways appear patent. Mild nonspecific wall thickening of the distal esophagus. Mild distention of the gallbladder. Calcifi ed granulomata about the spleen. 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 Multilevel spondylitic spurring with disc space narrowing and facet arthropathy of the thoracic spine. Probable sebaceous cyst about the midline aspect of the mid back distribution, 4. 0 cm. IMPRESSION: 1. Cardiomegaly without evidence of pulmonary thromboembolic disease. 2. 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 3. Bibasilar patchy consolidative and groundglass opacities, left greater than right. This includes a pleural-based consolidative opacity of the left lower lobe measuring up to 4.7 x 1.8 cm. This may re flect pneumonia or aspiration pneumonitis in the appropriate clinical setting however short-term foll ow-up chest CT recommended to exclude progressive abnormality. 4. Trace left pleural effusion. 5. Prior granulomatous disease. The above report was generated using voice recognition software. It may contain grammatical, syntax o r spelling errors. Electronically signed by: Francois Tam M.D. 12/18/2018 7:01 AM
[2018-12-18 07:37] LABS: Hematocrit (blood only) 33.8 % (37-47); Hemoglobin 10.8 g/dL (12.0-16.0); Immature Granulocytes # (auto) 0.03 K/uL (0.00-0.02); Immature Granulocytes % (auto) 0.3 %; Lymphocytes # (auto) 0.69 K/uL (1.2-3.4); Lymphocytes % (auto) 6.1 %; Mean Corpuscular Volume 92.6 fL (80-100); Mean Platelet Volume 10.3 fL (7.4-10.4); Monocytes # (auto) 0.39 K/uL (0.11-0.59); Monocytes % (auto) 3.4 %; Neutrophils # (auto) 10.22 K/uL (1.4-6.5); Neutrophils % (auto) 90.2 %; Platelet Count 157 K/uL (130-400); RDW Coefficient of Variation 14.9 % (11.5-14.5); RDW Standard Deviation 50.6 fL (36.4-46.3); Red Blood Count 3.65 M/uL (4.2-5.4); White Blood Count 11.33 K/uL (4.8-10.8)
[2018-12-18 07:47] LABS: INR 1.1 (0.9-1.1); Prothrombin Time 10.8 Seconds (9.0-12.0)
--- NOTE | 2018-12-18 07:50 | Hospitalist Progress Note ---
Date of Service December 18, 2018 Assessment & Plan (1) Shortness of breath: Acute hypoxic respiratory failure secondary to interstitial lung disease exacerbation/ Aspiration pneumonia : Per daughter, anxiety contributing to respiratory symptoms -Home meds: Stilto Respimat (Tiotropium- Olodaterol) Oxygen 2.5 L (At home: only on CPAP q HS) Nebs 4 times daily S/P IV Solu-Medrol --> Prednisone 40 mg daily -Augementin BID Work-up CXR- Cardiology with mild volume overload. CT chest-no PE. Cardiology, pacemaker, small left pleural effusion. Pleural-based lesion/masslike consolidation left lung base. Patchy bibasilar infiltrates, likely component pulmonary edema. HTN Stable Continue with home medications- Amlodipine 10 mg daily -On lasix 40 mg daily with potassium supplement, Toprol-XL 75 mg daily Pacemaker in situ History of sick sinus syndrome status post pacemaker placement. Obstructive sleep apnea on CPAP Dyslipidemia Continue with atorvastatin 80 mg nightly Anxiety mood disorder Anxiolytic as needed as at home -On zoloft 40 m g QID GERD Continue with Protonix 40 mg daily DVT prophylaxis Subcu Lovenox Full code Disposition Medical management in progress Patient's daughter requesting updates from providers. Ms. Jeni Cross. Contact [phone] Subjective Patient is feeling much better today. Sitting comfortably in her chair. Shortness of breath has improved. Does have some cough with sputum production, yellowish in color. No chest tightness, chest pain, wheezing, fever, chills. No nausea, vomiting On 2.5 L of oxygen next para Physical Exam Physical Exam: GENERAL- AAOX3, No acute distress LUNGS- Air entry bilaterally decreased, few crackles HEART- Regular rate and rhythm. No murmurs ABDOMEN- Soft, non tender, non distended, Bowel sounds heard. EXTREMITIES- Good peripheral pulses, no edema Results & Data Vital Signs (Past 12 Hours) Vital Signs Temp Pulse Pulse Resp BP BP Pulse Ox 12/18/18 07:01 57 L 18 94 12/18/18 05:43 70 12/18/18 03:36 36.7 C 65 22 116/61 92 12/18/18 02:35 68 18 94 12/18/18 00:36 38 C H 91 H 28 H 174/55 H 97 12/17/18 23:48 62 18 139/75 95 12/17/18 23:12 65 20 128/61 94 12/17/18 22:29 66 24 125/61 96 12/17/18 20:41 92 12/17/18 20:38 88 L
[2018-12-18] MEDS: ATORVASTATIN 40 MG TAB PO SCH (08:48)
[2018-12-18] MEDS: METOPROLOL SUCC 50MG EXT REL TAB PO SCH (08:48)
[2018-12-18] MEDS: SERTRALINE HCL 100 MG TABLET PO SCH ×4 (08:48→22:04)
[2018-12-18] MEDS: predniSONE 20 MG TAB PO SCH (08:48)
[2018-12-18] MEDS: PANTOprazole 40 MG TAB PO SCH (08:49)
[2018-12-18] MEDS ORDERED: FUROSEMIDE 40 MG TAB PO SCH (09:00)
[2018-12-18] MEDS ORDERED: AMLODIPINE BESYLATE 5 MG TAB PO SCH (09:00)
[2018-12-18] MEDS ORDERED: AUGMENTIN~PHARMACY CONSULT IN PROGRESS PRN (09:00)
[2018-12-18] MEDS: FUROSEMIDE 40 MG TAB PO SCH (09:31)
[2018-12-18] MEDS: ENOXAPARIN INJ 30 MG/0.3 ML SYR SQ SCH (09:31)
--- NOTE | 2018-12-18 13:18 | Consultation Report ---
DATE OF CONSULTATION: 12/18/2018 PULMONARY MEDICINE CONSULTATION REASON FOR CONSULTATION: Progressive shortness of breath. HISTORY OF PRESENT ILLNESS: An 88-year-old white female who was brought to the Emergency Room by family members because of symptoms of progressive dyspnea at rest as well as with exertion. The symptoms began several days ago associated with a dry nonproductive cough and associated as well with left posterior thoracic and subscapular pain radiating to the left side of her chest. She applied a heating pad without improvement. She also suffers from anxiety and depression. Her is at home and is chronically ill. She has had some mild nausea with emesis during this several-day period. No abdominal pain. In the ED, she was found to be mildly hypoxic with saturations in the 88-89% range and was supplemented with oxygen at 3 liters by OxyMask. She was given a nebulizer treatment and chest x-ray suggested mild fluid overload as well. I have been asked to see patient in consultation. She was admitted on to the hospitalist service under the care of Dr. Pretty Melton. She has a history of sick sinus syndrome, status post pacemaker implantation. Her hypertension has been well controlled in the past on amlodipine 10 mg daily, along with Lasix, potassium, and Toprol-XL. She was placed in the past on Stiolto Respimat inhaler and has a nebulizer at home that she uses quite frequently when symptomatic. She is also treated for obstructive sleep apnea with CPAP. The patient is followed by Noe Thompson/physician records assistant for the pulmonary group. He last saw her on 12/01/2018. He stated that that time her breathing was not problematic and scheduled a followup visit in 4 months. She denied palpitations, pleuritic pain, night sweats, fevers, etc. Her weight had remained constant. Last chest x-ray in September 2018 showed no acute process. CAT scan of the chest in 2007 when last done and seen by myself showed a stable appearing 1 cm right hilar lymph node with granulomatous changes involving lower lobes and spleen that were old. Echocardiogram in the remote past showed normal left ventricular function, no significant valvular disease suggested. PFTs in 2013 revealed an FEV1/FVC ratio of 75% with a normal forced vital capacity. Modest response to bronchodilator was demonstrated. Lung volumes demonstrated evidence for significant hyperinflation and air trapping at that time. The patient's sleep study in the remote past demonstrated moderately severe obstructive sleep apnea with nocturnal desaturation with BiPAP suggested and CPAP administered. The patient was admitted for further evaluation and therapy. PAST MEDICAL HISTORY: History of paroxysmal atrial fibrillation, pacemaker insertion, obstructive sleep apnea, a suggestion of interstitial lung disease as well as ischemic cardiac disease, status post OH as well as history of hypertension and a periprosthetic femur fracture. PHYSICAL EXAMINATION: GENERAL: This is a well-developed, well-nourished white female, appearing stable at rest, feeling much better than she did last night according to her history. CURRENT VITAL SIGNS: Blood pressure 116/61, pulse 57 and regular, respiratory rate 18, temperature 36.7, O2 sat 94% on 3 liters via OxyMask. SKIN: Without lesion. HEENT: Atraumatic, normocephalic, PERRLA, EOMI. Conjunctivae pale. Sclerae nonicteric. Fundi poorly visualized. NECK: Neck veins not distended at 45 degrees. LUNGS: Rales, left greater than right with decreased breath sounds. CARDIAC: Regular rate and rhythm. I do not appreciate a gallop. ABDOMEN: Soft, protuberant. No evidence of hepatosplenomegaly. EXTREMITIES: No pedal edema, clubbing or cyanosis. NEUROLOGICAL: Intact. No lateralizing signs. LABORATORY DATA: CTA shows cardiomegaly without evidence of pulmonary thromboembolic disease. There is fusiform dilatation of the descending thoracic aorta, stable at 3.5 cm. There are bibasilar patchy consolidative and ground-glass opacities, left much greater than right with a pleural based consolidative opacity at the left lower lobe measuring 4.7 x 1.8 cm. This could represent pneumonia, aspiration or even a neoplasm. Trace left pleural effusion is noted. This is in comparison to previous CTA of 05/24/2018 and even chest x-ray 10/01/2018 which shows chronic interstitial changes in the left base, but not this pleural based area of consolidation. OTHER LABORATORY DATA: White count 14,000 on admission, H and H 12 and 37 with a leftward shift. D-dimer markedly elevated. ABGs on 3 liters, pH 7.45, pCO2 of 33, pO2 of 65. OVERALL ASSESSMENT: An 88-year-old white female presents with acute hypoxic respiratory failure with mild underlying interstitial lung disease and obstructive lung disease with possible aspiration pneumonia somewhat atypical, but possible at the left base greater than right. I think there was an element of mild fluid overload as well. I would continue daily diuresis along with her beta blockade and CPAP therapy. In addition, the patient is on Lovenox prophylaxis, subQ and is on IV doxycycline in addition to IV Zosyn along with IV methylprednisolone. I would continue vigorous pulmonary toilet and probably have the patient at some point undergo a swallow prior to discharge, in addition, if the patient fails to clear that additional workup including possible bronchoscopy with and without BAL and transbronchial biopsy or even possible needle biopsy of this left pleural based consolidated region, if it becomes necessary to do so without any signs of clearing. We will follow along with you. BRANDON
[2018-12-18] MEDS: AMOXICILLIN/CLAVULANATE 875 MG TAB PO SCH (17:54)
[2018-12-18] MEDS ORDERED: INSULIN GLARGINE SOLOSTAR 100 UNITS/ML 3 ML PEN SQ SCH (21:00)
[2018-12-18] MEDS: MIRTAZAPINE TAB 15 MG TAB PO SCH (22:05)
[2018-12-18] MEDS: ACETAMINOPHEN 325 MG TAB PO PRN (23:45)
[2018-12-19] MEDS: IPRATROPIUM BROMIDE NEB SOLN 0.02% 2.5 ML VIAL INH SCH ×4 (02:07→19:18)
[2018-12-19] MEDS: LEVALBUTEROL 1.25MG/0.5ML NEB INH SCH ×4 (02:07→19:18)
[2018-12-19] MEDS: clonazePAM 0.5 MG TAB PO PRN ×3 (08:42→21:29)
[2018-12-19] MEDS: AMOXICILLIN/CLAVULANATE 875 MG TAB PO SCH ×2 (08:42→17:20)
[2018-12-19] MEDS: METOPROLOL SUCC 50MG EXT REL TAB PO SCH (08:43)
[2018-12-19] MEDS: ATORVASTATIN 40 MG TAB PO SCH (08:43)
[2018-12-19] MEDS: SERTRALINE HCL 100 MG TABLET PO SCH ×4 (08:44→20:19)
[2018-12-19] MEDS: PANTOprazole 40 MG TAB PO SCH (08:45)
[2018-12-19] MEDS: AMLODIPINE BESYLATE 5 MG TAB PO SCH (08:46)
[2018-12-19] MEDS: ENOXAPARIN INJ 30 MG/0.3 ML SYR SQ SCH (08:46)
[2018-12-19] MEDS: predniSONE 20 MG TAB PO SCH (08:47)
[2018-12-19] MEDS: FUROSEMIDE 40 MG TAB PO SCH (08:47)
[2018-12-19] MEDS: INSULIN ASPART 100 UNITS/ML 3 ML PEN SC SCH ×2 (09:44→11:45)
--- NOTE | 2018-12-19 10:43 | Progress Note ---
DATE: 12/19/2018 PULMONARY MEDICINE PROGRESS NOTE Chart reviewed, the patient examined. SUBJECTIVE: The patient is very emotional this morning, feels she needs to be discharged, so she can take care of her infirmed and there were issues with her daughter as well. I informed her that we are treating her for significant pneumonia and that her hypoxemia is the result of that. She seemed to calm down and wishes to pursue her treatment. OBJECTIVE: VITAL SIGNS: Blood pressure 133/77, pulse 66, respiratory rate 18, temperature 36.6, O2 sat 90% on current O2 supplementation. SKIN: Without lesion. HEENT: Atraumatic, normocephalic. PERRLA. LUNGS: Decreased breath sounds, left base with some rales. CARDIAC: Regular rate and rhythm. No murmurs or gallops. PMI nondisplaced. ABDOMEN: Soft, scaphoid. EXTREMITIES: Trace pedal edema. No clubbing. Peripheral cyanosis. NEUROLOGICAL: Intact. No lateralizing signs. LABORATORY DATA: CTA as stated yesterday in my consultative note shows a consolidative and ground-glass opacities, left greater than right with a pleural based area of consolidation measuring 4.7 cm x 1.8 cm. I suspect this represents either rounded atelectasis or pleural based area of consolidation, not a neoplasm given its fairly rapid appearance. ASSESSMENT AND PLAN: In any event, would like to continue current treatment and reimage the patient tomorrow to see if there has been any improvement. The patient is extremely anxious about returning home, but I cautioned her about premature discharge.
--- NOTE | 2018-12-19 12:29 | Hospitalist Progress Note ---
Date of Service December 19, 2018 Assessment & Plan (1) Shortness of breath: Acute hypoxic respiratory failure secondary to interstitial lung disease exacerbation/ Possible Aspiration pneumonia : Per daughter, anxiety contributing to respiratory symptoms -Home meds: Stilto Respimat (Tiotropium- Olodaterol) Oxygen 2.5 L (At home: only on CPAP q HS) ---> Now off it 94% on RA Nebs QID S/P IV Solu-Medrol --> Prednisone 40 mg daily - Day 2 -Augmentin BID - Day 2 for possible aspiration pneumonia Work-up CXR- Cardiology with mild volume overload. CT chest-no PE. Cardiology, pacemaker, small left pleural effusion. Pleural-based lesion/masslike consolidation left lung base. Patchy bibasilar infiltrates, likely component pulmonary edema. -Pulmonary on board -thinks this is a combination of mild interstitial lung disease/obstructive lung disease/mild fluid overload/possible aspiration pneumonia. Considered bronchoscopy with or without BAL/needle biopsy for consolidative opacity in left lower lobe measuring 4.7 x 1.8 cm. However after discussion with daughter, they do not want any invasive procedure including bronchoscopy. Per CT scan finding recommendationshort-term follow-up chest CT to exclude progressive abnormality would be appropriate. Conveyed to daughter as well PLAN: Repeat CXR in AM per pulmonary. Speech swallow evaluation requested per pulm recommendations HTN Stable Continue with home medications- Amlodipine 10 mg daily -Continue with lasix 40 mg daily with potassium supplement, Toprol-XL 75 mg daily Pacemaker in situ History of sick sinus syndrome status post pacemaker placement. Obstructive sleep apnea on CPAP Dyslipidemia Continue with atorvastatin 80 mg nightly Anxiety mood disorder Anxiolytic as needed as at home -On zoloft 40 m g QID GERD Continue with Protonix 40 mg daily DVT prophylaxis Subcu Lovenox Full code Disposition Medical management in progress - improving, off oxygen today. Likely discharge in AM if continues to improve, CXR better. Patient is very emotional and anxious as at home is going through hos pice evaluation. Daughter requested counseling services. Will get spiritual health consult. Patient's daughter requesting updates from providers. Ms. Jeni Cross. Contact [phone] Subjective Patient is feeling much better today. Sitting comfortably in her chair. Shortness of breath has improved. Does have some cough with sputum production, yellowish in color. No chest tightness, chest pain, wheezing, fever, chills. No nausea, vomiting Little Anxious today as stressed about her . Also emotional. On 2.5 L of oxygen Physical Exam Physical Exam: GENERAL- Anxious +. AAOX3, No acute distress LUNGS- Air entry bilaterally decreased, few crackles HEART- Regular rate and rhythm. No murmurs ABDOMEN- Soft, non tender, non distended, Bowel sounds heard. EXTREMITIES- Good peripheral pulses, no edema Results & Data Vital Signs (Past 12 Hours) Vital Signs Temp Pulse Resp BP Pulse Ox 12/19/18 11:48 90 12/19/18 07:43 36.6 C 66 18 133/77 90 12/19/18 07:24 55 L 18 90 12/19/18 02:07 64 16 90
[2018-12-19] MEDS: MIRTAZAPINE TAB 15 MG TAB PO SCH (20:18)
[2018-12-19] MEDS ORDERED: methylPREDNISolone 40 MG in SYRINGE 0 ML IV STA (23:30)
[2018-12-19] MEDS ORDERED: ALBUT/IPRATROP 3MG/0.5MG NEB 3 ML VIAL NEB STA (23:31)
[2018-12-19] MEDS ORDERED: PIPERACILLIN/TAZOBACTAM 4.5 GM in DEXTROSE 5% 100 ML IV ONE (23:56)
[2018-12-19] MEDS ORDERED: PIPERACILL/TAZOBAC CONSULT ACTIVE PRN (23:56)
[2018-12-19 23:57] LABS: Base Excess ABG 0.4 mEq/L (-9-1.8); HCO3 ABG 23 mmol/L (19-24); Oxygen Saturation ABG 93.7 % (90-95); PCO2 ABG 32 mmHg (35-46); PO2 ABG 65 mm/Hg (80-95); pH ABG 7.48 (7.35-7.45)
[2018-12-20 00:01] LABS: Allen Test Pos (Pos)
[2018-12-20 00:21] LABS: BUN Creatinine Ratio 21.4 (10-20); Calcium 8.1 mg/dl (8.5-10.1); Est GFR (African American) 67.5; Est GFR (Non-African American) 58.3; Magnesium 1.9 mg/dl (1.8-2.4); Potassium 3.4 mmol/L (3.5-5.1)
[2018-12-20] MEDS: IPRATROPIUM BROMIDE NEB SOLN 0.02% 2.5 ML VIAL INH SCH ×4 (01:50→19:06)
[2018-12-20] MEDS: LEVALBUTEROL 1.25MG/0.5ML NEB INH SCH ×4 (01:50→19:06)
[2018-12-20] MEDS ORDERED: MAGNESIUM SULFATE / D5W 1 GM/100 ML BAG IV ONE (02:17)
[2018-12-20] MEDS ORDERED: POTASSIUM CHLORIDE 20 MEQ TABCR PO STA (02:17)
--- NOTE | 2018-12-20 02:18 | Hospitalist Progress Note ---
Date of Service December 20, 2018 Subjective Made aware by RN of increasing O2 requirement, fever spike. Chest x-ray as per my interpretation, elevated right hemidiaphragm, increased infiltrate in the left. AP Worsening hypoxemic respiratory failure Aspiration pneumonia ongoing Augmentin Rx Supplemental O2 Baseline ABG Solu-Medrol 1 dose now Change Augmentin to Zosyn for now. ? Bronchoscopy Will relay to AM provider. Results & Data Vital Signs (Past 12 Hours) Vital Signs Temp Pulse Resp BP Pulse Ox 12/20/18 01:52 88 22 95 12/19/18 23:48 84 25 H 90 12/19/18 23:39 82 28 H 167/87 H 90 12/19/18 23:38 37.7 C H 83 20 155/84 H 91 12/19/18 19:19 65 18 91 12/19/18 16:35 92 12/19/18 16:30 84 L 12/19/18 15:49 37.0 C 69 18 116/54 L 92
[2018-12-20] MEDS: PIPERACILLIN/TAZOBACTAM 4.5 GM in DEXTROSE 5% 100 ML IV SCH ×3 (05:55→21:57)
[2018-12-20] MEDS ORDERED: ACETAMINOPHEN 65 ML IV ONE (06:21)
[2018-12-20] MEDS: METOPROLOL SUCC 50MG EXT REL TAB PO SCH ×2 (06:35→08:48)
[2018-12-20 07:10] LABS: Hemoglobin 10.7 g/dL (12.0-16.0); Mean Corpuscular Hgb Conc 31.5 g/dL (32-36); Mean Corpuscular Volume 92.4 fL (80-100); Mean Platelet Volume 10.4 fL (7.4-10.4); Platelet Count 184 K/uL (130-400); RDW Coefficient of Variation 14.9 % (11.5-14.5); RDW Standard Deviation 50.6 fL (36.4-46.3); Red Blood Count 3.68 M/uL (4.2-5.4); White Blood Count 13.49 K/uL (4.8-10.8)
[2018-12-20 07:50] LABS: BUN Creatinine Ratio 19.4 (10-20); Calcium 8.3 mg/dl (8.5-10.1); Creatinine Clr Calc Pharmacy 40.4 ml/min; Est GFR (African American) 59.3; Est GFR (Non-African American) 51.1; Potassium 3.7 mmol/L (3.5-5.1)
[2018-12-20] MEDS: PANTOprazole 40 MG TAB PO SCH (08:48)
[2018-12-20] MEDS: AMLODIPINE BESYLATE 5 MG TAB PO SCH (08:49)
[2018-12-20] MEDS: ATORVASTATIN 40 MG TAB PO SCH (08:49)
[2018-12-20] MEDS: SERTRALINE HCL 100 MG TABLET PO SCH ×4 (08:50→20:40)
[2018-12-20] MEDS: predniSONE 20 MG TAB PO SCH (08:51)
[2018-12-20] MEDS: FUROSEMIDE 40 MG TAB PO SCH ×2 (08:51→17:35)
[2018-12-20] MEDS: ENOXAPARIN INJ 30 MG/0.3 ML SYR SQ SCH (08:51)
--- NOTE | 2018-12-20 10:40 | XRay Report ---
TWO VIEW CHEST CLINICAL HISTORY: Pneumonia. FINDINGS: PA and lateral chest radiographs are compared to study dated 12/19/2018 and correlated with chest CT dated 12/18/2018. A 2-lead cardiac pacemaker is unchanged in position and partially obscures the left mid chest. The cardiomediastinal heart is enlarged and there is atherosclerotic calcificatio n of the thoracic aorta. The pulmonary vasculature is noncongested. There is chronic elevation of the right hemidiaphragm with associated atelectasis. Airspace consolidation at the left lung base is inc reasingly conspicuous. Trace pleural effusions are suspected. There is no pneumothorax. The skeletal structures are osteopenic. Advanced degenerative change is noted in the shoulders and thoracic spine. IMPRESSION: 1. Cardiomegaly and cardiac pacemaker without radiographic evidence of congestive failure. 2. Airspace consolidation at the left lung base is increasingly conspicuous from yesterday. 3. Suspect trace pleural effusions. Electronically signed by: Roel Yang M.D. 12/20/2018 10:39 AM
--- NOTE | 2018-12-20 11:42 | XRay Report ---
SINGLE VIEW CHEST CLINICAL HISTORY: Dyspnea. FINDINGS: An AP, portable, upright chest radiograph is compared to study dated 12/17/2018 and correlat ed with chest CT dated 12/18/2018. The examination is degraded by portable technique and patient rotat ion. A 2-lead cardiac pacemaker is unchanged in position and partially obscures the left mid chest. The heart is enlarged and there is atherosclerotic calcification of the thoracic aorta. The pulmonary vasculature is noncongested. There is chronic elevation of the right hemidiaphragm with associated a telectasis. Airspace consolidation is noted at the left lung base. Trace pleural effusions are suspec ebenezer. There is no pneumothorax. The skeletal structures are osteopenic. Advanced degenerative change i s noted in the shoulders and thoracic spine. IMPRESSION: 1. Cardiomegaly and cardiac pacemaker without radiographic evidence of congestive failure. 2. Patchy airspace consolidation at the left lung base is typical in appearance for pneumonia. Radiog raphic follow-up to resolution is recommended. Electronically signed by: Roel Yang M.D. 12/20/2018 11:41 AM
[2018-12-20] MEDS: LACTOBACILLUS ACIDOPHILUS (FLORANEX) TAB PO SCH ×3 (12:40→20:40)
[2018-12-20] MEDS ORDERED: PERFLUTREN LIPID MICROSPHERE (DEFINITY) IV ONE (13:41)
--- NOTE | 2018-12-20 16:42 | Hospitalist Progress Note ---
Date of Service December 20, 2018 Assessment & Plan (1) Shortness of breath: Acute hypoxic respiratory failure secondary to interstitial lung disease exacerbation/left lung pneumonia: Also due to volume overload As per daughter, anxiety contributing to respiratory symptoms On CPAP q HS at baseline Continue IV Zosyn, Nebs Continue prednisone day # 3 Blood Cx: No growth to date Patient/family prefers no aggressive measures, procedures Repeat CXR: Consistent with congestive failure, left lung base consolidation, trace pleural effusions Check ECHO Pulmonology on board Increased p.o. Lasix to 40 mg twice daily Monitor I's and O's, daily weight Continue to wean off supplemental oxygen as able Speech and Swallow eval HTN Stable Continue Amlodipine, metoprolol Pacemaker in situ H/O sick sinus syndrome S/P pacemaker placement Continue Metoprolol Obstructive sleep apnea on CPAP QHS Dyslipidemia Continue atorvastatin Anxiety mood disorder Klonopin PRN On zoloft GERD Continue PPI DVT Px: Lovenox SQ Code Status Full code Disposition Patient's daughter requesting updates from providers. Ms. Jeni Cross. Contact [phone] Subjective Patient is seen and examined at bedside Patient had increased oxygen requirement, abdominal fever overnight Patient still has chronic cough chest x-ray consistent with volume overload, increased left sided infiltrate Discussed with daughter at bedside--prefers no procedures, invasive measures Patient denies any chest pain, shortness of breath, dizziness Offers no other complaints Review of Systems Review of Systems: All systems reviewed & are unremarkable except as noted in HPI & below Physical Exam Physical Exam: Physical Exam: Vitals signs as noted above General Appearance:Moderately built and nourished, no apparent distress Head: normocephalic, Atraumatic Eyes: normal inspection, EOMI Neck: supple, Trachea midline Respiratory/Chest: Normal breath sounds, B/L crackles Cardiovascular: S1, S2, + murmur Abdomen/GI:Soft, Non tender, Bowel sounds present Extremities/Musculoskelatal:normal inspection, Trace edema Neurologic/Psych:AAOX3, grossly no focal neurological deficits Skin: normal color, warm Results & Data Vital Signs (Past 12 Hours) Vital Signs Temp Pulse Resp BP BP Pulse Ox 12/20/18 15:54 36.3 C L 74 19 122/71 92 12/20/18 07:26 36.9 C 20 130/85 92 12/20/18 07:09 65 18 90 12/20/18 06:00 36.8 C 73 123/70 92 Laboratory Results Short CBC 12/20/18 Range/Units 06:35 WBC 13.49 H (4.8-10.8) K/uL Hgb 10.7 L (12.0-16.0) g/dL Hct 34.0 L (37-47) % Plt Count 184 (130-400) K/uL BMP 12/19/18 12/20/18 23:48 06:35 Sodium 141 141 Potassium 3.4 L 3.7 Chloride 106 106 Carbon Dioxide 27 26 BUN 19 H 19 H Creatinine 0.88 0.98 Glucose 106 H 150 H Calcium 8.1 L 8.3 L
[2018-12-20] MEDS ORDERED: POTASSIUM CHLORIDE 10 MEQ TABCR PO ONE (16:45)
[2018-12-20] MEDS: MIRTAZAPINE TAB 15 MG TAB PO SCH (20:40)
[2018-12-20] MEDS: clonazePAM 0.5 MG TAB PO PRN (21:57)
[2018-12-21] MEDS: LEVALBUTEROL 1.25MG/0.5ML NEB INH SCH ×4 (01:42→19:36)
[2018-12-21] MEDS: IPRATROPIUM BROMIDE NEB SOLN 0.02% 2.5 ML VIAL INH SCH ×4 (01:42→19:36)
[2018-12-21] MEDS: PIPERACILLIN/TAZOBACTAM 4.5 GM in DEXTROSE 5% 100 ML IV SCH ×3 (05:27→21:49)
[2018-12-21] MEDS: AMLODIPINE BESYLATE 5 MG TAB PO SCH (07:58)
[2018-12-21] MEDS: ATORVASTATIN 40 MG TAB PO SCH (07:59)
[2018-12-21] MEDS: METOPROLOL SUCC 50MG EXT REL TAB PO SCH (08:00)
[2018-12-21] MEDS: PANTOprazole 40 MG TAB PO SCH (08:01)
[2018-12-21] MEDS: SERTRALINE HCL 100 MG TABLET PO SCH ×4 (08:02→21:44)
[2018-12-21] MEDS: LACTOBACILLUS ACIDOPHILUS (FLORANEX) TAB PO SCH ×4 (08:03→21:43)
[2018-12-21] MEDS: predniSONE 20 MG TAB PO SCH (08:05)
[2018-12-21] MEDS: ENOXAPARIN INJ 30 MG/0.3 ML SYR SQ SCH (08:07)
[2018-12-21] MEDS: FUROSEMIDE 40 MG TAB PO SCH ×2 (08:07→18:05)
[2018-12-21 08:18] LABS: BUN Creatinine Ratio 22.6 (10-20); Calcium 8.4 mg/dl (8.5-10.1); Creatinine Clr Calc Pharmacy 37.7 ml/min; Est GFR (African American) 54.5; Potassium 3.5 mmol/L (3.5-5.1)
[2018-12-21] MEDS ORDERED: POTASSIUM CHLORIDE 10 MEQ TABCR PO SCH ×2 (09:00→09:15)
[2018-12-21] MEDS: ACETAMINOPHEN 325 MG TAB PO PRN (14:39)
--- NOTE | 2018-12-21 15:39 | Hospitalist Progress Note ---
Date of Service December 21, 2018 Assessment & Plan (1) Shortness of breath: Acute hypoxic respiratory failure secondary to interstitial lung disease exacerbation/left lung pneumonia: Acute on chronic diastolic heart failure Possible aspiration Pneumonia As per daughter, anxiety contributing to respiratory symptoms On CPAP q HS at baseline Continue IV Zosyn, Nebs Continue prednisone day #4 Blood Cx: No growth to date Patient/family prefers no aggressive measures, procedures Repeat CXR: Consistent with congestive failure, left lung base consolidation, trace pleural effusions ECHO: EF 55 to 60% Grade 2 diastolic dysfunction, mild concentric LVH, mild MR Pulmonology on board Continue Increased PO Lasix to 40 mg twice daily Monitor I's and O's, daily weight Continue to wean off supplemental oxygen as able Speech and Swallow eval done May need to step prior to discharge HTN Stable Continue Amlodipine, metoprolol Pacemaker in situ H/O sick sinus syndrome S/P pacemaker placement Continue Metoprolol Obstructive sleep apnea on CPAP QHS Dyslipidemia Continue atorvastatin Anxiety mood disorder Klonopin PRN On zoloft GERD Continue PPI DVT Px: Lovenox SQ Code Status Full code Disposition Patient's daughter requesting updates from providers. Ms. Jeni Cross. Contact [phone] Subjective Patient is seen and examined at bedside Patient was tearful discussing about her 's health this morning Productive cough slowly improving Less short of breath Afebrile today Patient denies any chest pain, dizziness Offers no other complaints Review of Systems Review of Systems: All systems reviewed & are unremarkable except as noted in HPI & below Physical Exam Physical Exam: Physical Exam: Vitals signs as noted above General Appearance:Moderately built and nourished, no apparent distress Head: normocephalic, Atraumatic Eyes: normal inspection, EOMI Neck: supple, Trachea midline Respiratory/Chest: Normal breath sounds, CTA Cardiovascular: S1, S2, + murmur Abdomen/GI:Soft, Non tender, Bowel sounds present Extremities/Musculoskelatal:normal inspection, Trace edema Neurologic/Psych:AAOX3, grossly no focal neurological deficits Skin: normal color, warm Results & Data Vital Signs (Past 12 Hours) Vital Signs Temp Pulse Resp BP Pulse Ox 12/21/18 13:53 78 16 95 12/21/18 07:46 36.6 C 77 18 149/75 H 90 12/21/18 07:25 79 16 95 Laboratory Results [facility] 12/21/18 07:19 Sodium 144 Potassium 3.5 Chloride 110 H Carbon Dioxide 28 BUN 24 H Creatinine 1.05 Glucose 100 H Calcium 8.4 L
--- NOTE | 2018-12-21 15:59 | Progress Note ---
DATE: 12/21/2018 PULMONARY PROGRESS NOTE TIME: 3:20 p.m. SUBJECTIVE: The patient is feeling somewhat better. She is no longer having the severe left-sided chest pain she had prior to and at the time of admission. She is having less episodes of shortness of breath. According to nursing, she is not having as much hypoxia as she had previously and she is not getting as many panic attacks. The patient states it feels like her congestion is loosening, but she still is not able to cough up any phlegm. Her appetite is good. She denies weight loss. Denies nausea or vomiting. OBJECTIVE: GENERAL: The patient appears comfortable at rest. She is somewhat emotionally labile. She can cry very easily. VITAL SIGNS: Temperature 36.6. The highest temperature since admission is 38. HEENT: Pupils were reactive. Nares were clear. Mouth exam showed dry membranes. NECK: Palpation of the neck reveals no lymph nodes. HEART: Cardiac rate 78 per minute. Rhythm regular. Blood pressure 149/75. LUNGS: Lung robison revealed rales at the left lower lung field posteriorly and laterally. Respiratory rate 16. Oxygen saturation 95% on 3-liter nasal cannula. ABDOMEN: Soft. Bowel sounds were present. EXTREMITIES: Showed scars on both knees from prior surgeries. There was mild nonpitting edema bilaterally. No cyanosis or clubbing. LABORATORY DATA: White count yesterday was 13.49. Hemoglobin 10.7. Platelets 184,000. Blood gas on December 19 showed pH 7.48, pCO2 of 32, pO2 of 65. This was done on 5-liter nasal cannula. Electrolytes today show sodium 144, potassium 3.5, chloride 110, bicarbonate 28. BUN 24 with a creatinine of 1.05. Blood sugar 100. I did review the patient's chest x-ray and CAT scan. The CAT scan shows an area of dense consolidation in the left lower lung field which is pleural based. This measures 4.7 x 1.8. The chest x-ray done yesterday showed an increase in the infiltrate compared with December 19. There is a pacemaker noted as well on the left side. Blood cultures are showing no growth. Echocardiogram done yesterday showed ejection fraction 55-60%. There was moderate aortic valve sclerosis without stenosis. There was mild concentric LVH. Diastolic dysfunction was noted. IMPRESSION: 1. Acute respiratory failure with hypoxia. 2. Left lower lobe consolidation, suggestive for pneumonia. 3. Obstructive sleep apnea. COMMENTS AND RECOMMENDATIONS: 1. The patient wears CPAP at home. She has not been getting that here she states. She did not know her pressures. Review of outpatient records would suggest that she is getting 7 cm as of approximately a year and a half ago. I invited the patient to have her family bring in her own CPAP. She states she is comfortable with the mask that she has. She had problems in the past getting a mask that was comfortable. 2. Would continue with the Zosyn, neb treatments with ipratropium and levalbuterol, and the prednisone as she is currently receiving. 3. The patient will ultimately need followup with Noe Thompson PA-C, who she sees in the pulmonary office. A followup CAT scan likely will need to be done in 6-8 weeks to assure that there has been improvement or resolution of the consolidative density. 4. The patient's need for oxygen at home can be assessed at the time of discharge. She describes having oxygen put into her CPAP, but she does not have oxygen for daytime use at all.
[2018-12-21] MEDS: POTASSIUM CHLORIDE 10 MEQ TABCR PO SCH (21:44)
[2018-12-21] MEDS: MIRTAZAPINE TAB 15 MG TAB PO SCH (21:44)
[2018-12-21] MEDS: clonazePAM 0.5 MG TAB PO PRN (21:49)
[2018-12-22] MEDS: IPRATROPIUM BROMIDE NEB SOLN 0.02% 2.5 ML VIAL INH SCH ×4 (01:15→19:55)
[2018-12-22] MEDS: LEVALBUTEROL 1.25MG/0.5ML NEB INH SCH ×4 (01:15→19:55)
[2018-12-22] MEDS: PIPERACILLIN/TAZOBACTAM 4.5 GM in DEXTROSE 5% 100 ML IV SCH ×3 (05:58→21:48)
[2018-12-22] MEDS: ATORVASTATIN 40 MG TAB PO SCH (07:55)
[2018-12-22] MEDS: AMLODIPINE BESYLATE 5 MG TAB PO SCH (07:55)
[2018-12-22] MEDS: LACTOBACILLUS ACIDOPHILUS (FLORANEX) TAB PO SCH ×4 (07:56→21:42)
[2018-12-22] MEDS: POTASSIUM CHLORIDE 10 MEQ TABCR PO SCH ×2 (07:56→21:40)
[2018-12-22] MEDS: METOPROLOL SUCC 50MG EXT REL TAB PO SCH (07:57)
[2018-12-22] MEDS: PANTOprazole 40 MG TAB PO SCH (07:58)
[2018-12-22] MEDS: FUROSEMIDE 40 MG TAB PO SCH ×2 (07:58→17:26)
[2018-12-22] MEDS: SERTRALINE HCL 100 MG TABLET PO SCH ×4 (07:59→21:40)
[2018-12-22] MEDS: ENOXAPARIN INJ 30 MG/0.3 ML SYR SQ SCH (08:00)
[2018-12-22 08:07] LABS: BUN Creatinine Ratio 23.6 (10-20); Calcium 8.7 mg/dl (8.5-10.1); Creatinine Clr Calc Pharmacy 38.9 ml/min; Est GFR (African American) 57.2; Est GFR (Non-African American) 49.3; Potassium 3.5 mmol/L (3.5-5.1)
--- NOTE | 2018-12-22 10:03 | Pulmonology Progress Note ---
Date of Service December 22, 2018 Assessment & Plan (1) Acute respiratory failure with hypoxia: For now continue with the neb treatments as ordered. Upon discharge the patient can return to the inhalers she was using at home. (2) Left lower lobe consolidation: Continue with Zosyn. Upon discharge can change to Augmentin for a total of at least 10 days of antibiotic therapy. She will need a follow-up x-ray before this discharge, and she will need a follow-up CAT scan as an outpatient in 6 to 8 weeks. She likely should be followed up through pulmonary clinic. We would be looking for resolution of the dense consolidation in the periphery of the left lower lobe. (3) Sleep apnea: Continue with CPAP at night. As an outpatient compliance data should be obtained to determine both usage and resolution of sleep apnea. Subjective The patient is feeling much better today. She has no chest pain. Her cough has decreased. She has not been able to expectorate any phlegm at all even though she feels like it is a little more loose. She feels less short of breath. She is still requiring oxygen however. She seems much more relaxed at this time she is not having the emotional lability she had yesterday. Review of Systems Review of Systems: Negative except as noted above. Physical Exam Physical Exam: The patient is a pleasant 88-year-old female who was cooperative alert and oriented. She was in no distress. Temperature is 36.8. The only fever she had was back on 12/19/2018 at 37.7. Weight today 94.8 kg. This is decreased 1.4 kg from earlier in the hospital stay. ENT exam is unchanged from yesterday. No acute findings. The cardiac rate was 64/min. Rhythm was regular. Systolic murmur grade 2/6 heard. Blood pressure 144/78. Lung robison again reveals rales in the left lower lung field posteriorly and laterally. Respiratory rate 20. Saturation 92% on 3 L nasal cannula. The patient did wear her CPAP last night from home. Extremities shows mild nonpitting edema. Scars noted from prior surgeries of the knees. Results & Data Vital Signs (Past 12 Hours) Vital Signs Temp Pulse Pulse Resp BP BP Pulse Ox 12/22/18 07:24 36.8 C 64 20 144/78 H 92 12/22/18 07:03 71 16 94 12/22/18 01:16 56 L 16 90 12/21/18 23:49 36.8 C 73 18 138/71 90 12/21/18 22:36 71 Laboratory Results Electrolytes today show sodium 146 potassium 3.5 chloride 109 bicarb 29. BUN is 24 with creatinine 1.01. Blood sugar is 86. Calcium 8.7.
--- NOTE | 2018-12-22 16:16 | Hospitalist Progress Note ---
Date of Service December 22, 2018 Assessment & Plan (1) Shortness of breath: Acute hypoxic respiratory failure secondary to interstitial lung disease exacerbation/left lung pneumonia: Acute on chronic diastolic heart failure Possible aspiration Pneumonia As per daughter, anxiety contributing to respiratory symptoms On CPAP q HS at baseline Continue IV Zosyn, Nebs.. Plan to transition to Augmentin upon discharge Completed prednisone course Blood Cx: No growth to date Patient/family prefers no aggressive measures, procedures Repeat CXR: Consistent with congestive failure, left lung base consolidation, trace pleural effusions ECHO: EF 55 to 60% Grade 2 diastolic dysfunction, mild concentric LVH, mild MR Pulmonology on board Continue Increased PO Lasix to 40 mg twice daily Monitor I's and O's, daily weight Continue to wean off supplemental oxygen as able Speech and Swallow eval done Needs 2 step prior to discharge Continue CPAP at bedtime Plan to repeat chest x-ray tomorrow We will also need outpatient CT chest in 6-8 weeks upon discharge HTN Stable Continue Amlodipine, metoprolol Pacemaker in situ H/O sick sinus syndrome S/P pacemaker placement Continue Metoprolol Obstructive sleep apnea on CPAP QHS Dyslipidemia Continue atorvastatin Anxiety mood disorder Klonopin PRN On zoloft GERD Continue PPI DVT Px: Lovenox SQ Code Status Full code Disposition Likely discharge in next 24 to 48 hours if stable Patient's daughter requesting updates from providers. Ms. Jeni Cross. Contact [phone] Subjective Patient is seen and examined at bedside She is feeling better today Minimal cough Less short of breath Discussed with pulmonology today Patient denies any chest pain, dizziness Offers no other complaints Will need 2 step prior to discharge Review of Systems Review of Systems: All systems reviewed & are unremarkable except as noted in HPI & below Physical Exam Physical Exam: Physical Exam: Vitals signs as noted above General Appearance:Moderately built and nourished, no apparent distress Head: normocephalic, Atraumatic Eyes: normal inspection, EOMI Neck: supple, Trachea midline Respiratory/Chest: Normal breath sounds, Crackles on left base Cardiovascular: S1, S2, + murmur Abdomen/GI:Soft, Non tender, Bowel sounds present Extremities/Musculoskelatal:normal inspection, Trace edema Neurologic/Psych:AAOX3, grossly no focal neurological deficits Skin: normal color, warm Results & Data Vital Signs (Past 12 Hours) Vital Signs Temp Pulse Resp BP Pulse Ox 12/22/18 15:45 36.7 C 88 20 125/75 93 12/22/18 14:17 68 18 95 12/22/18 07:24 36.8 C 64 20 144/78 H 92 12/22/18 07:03 71 16 94 Laboratory Results [facility] 12/22/18 07:12 Sodium 146 H Potassium 3.5 Chloride 109 H Carbon Dioxide 29 BUN 24 H Creatinine 1.01 Glucose 86 Calcium 8.7
[2018-12-22] MEDS: MIRTAZAPINE TAB 15 MG TAB PO SCH (21:40)
[2018-12-22] MEDS: clonazePAM 0.5 MG TAB PO PRN (21:45)
[2018-12-23] MEDS: IPRATROPIUM BROMIDE NEB SOLN 0.02% 2.5 ML VIAL INH SCH ×3 (01:58→14:17)
[2018-12-23] MEDS: LEVALBUTEROL 1.25MG/0.5ML NEB INH SCH ×3 (01:58→14:17)
[2018-12-23] MEDS: PIPERACILLIN/TAZOBACTAM 4.5 GM in DEXTROSE 5% 100 ML IV SCH (06:29)
--- NOTE | 2018-12-23 07:09 | XRay Report ---
XR chest 1V portable CLINICAL HISTORY: Pneumonia dyspnea COMPARISON STUDY: 12/20/2018 FINDINGS: Slight improvement in aeration left lung base. Improvement in visibility left hemidiaphragm . Lungs otherwise appear clear. There is a permanent bipolar cardiac pacemaker. IMPRESSION: Improving infiltrate left base. The above report was generated using voice recognition software. It may contain grammatical, syntax or spelling errors. Electronically signed by: Mario Mccarty M.D. 12/23/2018 7:07 AM
[2018-12-23] MEDS: METOPROLOL SUCC 50MG EXT REL TAB PO SCH (08:07)
[2018-12-23] MEDS: LACTOBACILLUS ACIDOPHILUS (FLORANEX) TAB PO SCH ×2 (08:07→12:12)
[2018-12-23] MEDS: SERTRALINE HCL 100 MG TABLET PO SCH ×2 (08:09→12:13)
[2018-12-23] MEDS: PANTOprazole 40 MG TAB PO SCH (08:09)
[2018-12-23] MEDS: POTASSIUM CHLORIDE 10 MEQ TABCR PO SCH (08:10)
[2018-12-23] MEDS: AMLODIPINE BESYLATE 5 MG TAB PO SCH (08:10)
[2018-12-23] MEDS: ENOXAPARIN INJ 30 MG/0.3 ML SYR SQ SCH (08:11)
[2018-12-23] MEDS: FUROSEMIDE 40 MG TAB PO SCH (08:11)
[2018-12-23] MEDS: ATORVASTATIN 40 MG TAB PO SCH (08:11)
[2018-12-23 08:26] LABS: BUN Creatinine Ratio 21.7 (10-20); Calcium 8.6 mg/dl (8.5-10.1); Creatinine Clr Calc Pharmacy 38.9 ml/min; Est GFR (African American) 57.8; Est GFR (Non-African American) 49.9; Potassium 3.6 mmol/L (3.5-5.1)
--- NOTE | 2018-12-23 12:43 | Pulmonology Progress Note ---
Date of Service December 23, 2018 Assessment & Plan (1) Acute respiratory failure with hypoxia: The patient seems to be stable. She did a two-step today. On room air at rest her saturation was 88%. With ambulation she decreased down to 83%. She ultimately needed 3 L with exertion and 2 L at rest. Her chest x-ray is improved. She will need a follow-up CAT scan in about 6 weeks to be sure the consolidation has resolved. She does follow-up with Noe Thompson PA-C and should be set up to see him in 1 week or so. I have no objection to discharge if desired. (2) Left lower lobe consolidation: (3) Sleep apnea: Patient should continue to wear her CPAP nightly. Compliance data as an outpatient should be obtained. Subjective The patient states she feels well. She denies shortness of breath or cough. She denies chest pains. She is short of breath with exertion but not at rest. She is feeling somewhat better each day. Review of Systems 2 Review of Systems: Negative except as noted above. Physical Exam Physical Exam: The patient is a pleasant 88-year-old female who was cooperative alert and oriented. She was in no distress. Temperature is 36.8. ENT exam is unchanged from prior. Heart rate is 96/min. Rhythm regular. Systolic murmur grade 2/6 again heard. Blood pressure 136/79. Lung robison revealed mild rales at both bases, slightly increased on the left. There was overall good aeration. Respiratory rate 19. Saturation recorded is 92% on nasal cannula. Extremities show the left leg is slightly larger than the right leg with scars noted in both knees. Results & Data Vital Signs (Past 12 Hours) Vital Signs Temp Pulse Pulse Pulse Pulse Pulse Pulse 12/23/18 10:36 94 H 88 96 H 85 79 12/23/18 07:31 36.8 C 82 12/23/18 07:24 61 12/23/18 01:58 93 H Resp Resp Resp Resp Resp Resp BP 12/23/18 10:36 19 18 18 18 17 12/23/18 07:31 20 136/79 12/23/18 07:24 17 12/23/18 01:58 20 Pulse Ox Pulse Ox Pulse Ox Pulse Ox Pulse Ox Pulse Ox 12/23/18 10:36 85 L 90 83 L 92 88 L 07/17/19 07:31 91 12/23/18 07:24 93 12/23/18 01:58 90 Laboratory Results Electrolytes show sodium 143 potassium 3.6 chloride 107 bicarb 30. BUN 22 with creatinine 1.0. Blood sugar 97. Diagnostic Findings Chest x-ray done today shows some improvement in the aeration to the left base with decreased infiltrate. The left hemidiaphragm visibility was improved. There is a permanent bipolar cardiac pacemaker noted.
--- NOTE | 2018-12-23 13:07 | Hospitalist Progress Note ---
Date of Service December 23, 2018 Assessment & Plan (1) Shortness of breath: Acute hypoxic respiratory failure secondary to interstitial lung disease exacerbation/left lung pneumonia: Acute on chronic diastolic heart failure Possible aspiration Pneumonia As per daughter, anxiety contributing to respiratory symptoms On CPAP q HS at baseline Continue IV Zosyn, Nebs.. Plan to transition to Augmentin upon discharge to complete 10 day course Completed prednisone course Blood Cx: No growth to date Patient/family prefers no aggressive measures, procedures Repeat CXR: Consistent with congestive failure, left lung base consolidation, trace pleural effusions ECHO: EF 55 to 60% Grade 2 diastolic dysfunction, mild concentric LVH, mild MR Pulmonology on board Continue Increased PO Lasix to 40 mg twice daily Monitor I's and O's, daily weight Continue to wean off supplemental oxygen as able Speech and Swallow eval done 2 step: Patient requires 3 L of oxygen during ambulation and 2 L of oxygen with rest Continue CPAP at bedtime Repeat CXR:Improving infiltrate left base. We will also need outpatient CT chest in 6-8 weeks upon discharge HTN Stable Continue Amlodipine, metoprolol Pacemaker in situ H/O sick sinus syndrome S/P pacemaker placement Continue Metoprolol Obstructive sleep apnea on CPAP QHS Dyslipidemia Continue atorvastatin Anxiety mood disorder Klonopin PRN On zoloft GERD Continue PPI DVT Px: Lovenox SQ Code Status Full code Disposition Plan to discharge home today Family: Ms. Jeni Cross. Contact [phone] Subjective Patient is seen and examined at bedside No new complaints Cough and SOB much improved CXR today AM improved as well Discussed with Pulmnology today Patient denies any chest pain, dizziness 2 step: Qualifies for oxygen Review of Systems Review of Systems: All systems reviewed & are unremarkable except as noted in HPI & below Physical Exam Physical Exam: Physical Exam: Vitals signs as noted above General Appearance:Moderately built and nourished, no apparent distress Head: normocephalic, Atraumatic Eyes: normal inspection, EOMI Neck: supple, Trachea midline Respiratory/Chest: Normal breath sounds, CTA Cardiovascular: S1, S2, + murmur Abdomen/GI:Soft, Non tender, Bowel sounds present Extremities/Musculoskelatal:normal inspection, Trace edema Neurologic/Psych:AAOX3, grossly no focal neurological deficits Skin: normal color, warm Results & Data Vital Signs (Past 12 Hours) Vital Signs Temp Pulse Pulse Pulse Pulse Pulse Pulse 12/23/18 10:36 94 H 88 96 H 85 79 12/23/18 07:31 36.8 C 82 12/23/18 07:24 61 12/23/18 01:58 93 H Resp Resp Resp Resp Resp Resp BP 12/23/18 10:36 19 18 18 18 17 12/23/18 07:31 20 136/79 12/23/18 07:24 17 12/23/18 01:58 20 Pulse Ox Pulse Ox Pulse Ox Pulse Ox Pulse Ox Pulse Ox 12/23/18 10:36 85 L 90 83 L 92 88 L 12/23/18 07:31 91 12/23/18 07:24 93 12/23/18 01:58 90 Laboratory Results BMP 12/23/18 07:26 Sodium 143 Potassium 3.6 Chloride 107 Carbon Dioxide 30 BUN 22 H Creatinine 1.00 Glucose 92 Calcium 8.6
--- NOTE | 2018-12-23 13:20 | Discharge Summary ---
Date of Service December 23, 2018 Admission HPI Per Admitting Provider 88-year-old female who presents to the ED for evaluation of shortness of breath. Daughter is the bedside who provides some history.Patient reports her symptoms began a few days ago. She has chronic exertional shortness of breath which has been mildly worse than her baseline. She also has a dry nonproductive cough which is unchanged from baseline as well. Patient reports associated left scapular/thoracic back pain radiating around into the left rib cage. Patient has been using a heating pad with improvement of the pain. Daughter reports the patient has history of underlying anxiety and depression. Reports that patient's is sick at home and daughter feels as though this is increasing her anxiety. Patient denies chest pain. No lightheadedness, dizziness, diaphoresis, syncopal fall events. Had some nausea and dry heaves today however attributed that to anxiety. No vomiting, diarrhea, abdominal pain. No other recent illnesses, fevers, chills. Patient denies any urinary symptoms. In the ED, patient was mildly hypoxic at 88 to 89% on room air. Daughter reports she typically is around 89-90%. Oxygen levels improved with 3L via oxymask. Labs are essentially unremarkable. CXR suggests mild volume overload. Patient was also given IVF and neb treatment. Admission Exam Per Admitting Provider Constitutional: WD/WN, vitals as above anxious appearing Eyes: PERRL, conjunctivae normal, anicteric sclerae ENMT: external ear and nose normal, oropharynx normal Respiratory: + tachypneic; no respiratory distress Auscultation: + wheezes (faint, mild, end expiratory) Cardiovascular: Rate/Rhythm: regular rate and regular rhythm Vessels: normal peripheral pulses Extremities: no edema Gastrointestinal (Abdomen): normal bowel sounds, soft, nontender, no hepatosplenomegaly Musculoskeletal: no cyanosis or clubbing, extremities motor strength 5/5 tenderness over posterior ribs 6/7 Skin: no rashes, warm and dry Neurologic: PERRL, EOMI, accommodation nl, no face palsy, no dysarthria Psychiatric: Orientation: alert and oriented x 3 Affect: + anxious affect Principal Diagnosis Discharge Information Discharge Diagnosis Acute hypoxic respiratory failure Left Lung Pneumonia Acute on chronic diastolic heart failure Discharge Goals Decrease discomfort,Improve function,Improve disease control Discharge Activity Limitations Resume your previous activity Discharge Data Allergies Allergy/AdvReac Type Severity Reaction Status Date / Time aishapril Allergy Intermediate FACIAL Verified 12/20/18 13:43 SWELLING promethazine Allergy Intermediate SHORTNESS Verified 01/14/18 14:39 OF BREATH salicylates Allergy Unknown PT WAS ON Verified 01/14/18 14:39 ASA PRIOR TO ADMIT. simvastatin Allergy Unknown Unknown Verified 12/20/18 13:43 Consultations 12/17/18 20:47 ED Decision to Admit Stat 12/18/18 00:35 Consult Pulmonology Routine Procedures Performed CTA: 1. Cardiomegaly without evidence of pulmonary thromboembolic disease. 2. 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 3. Bibasilar patchy consolidative and groundglass opacities, left greater than right. This includes a pleural-based consolidative opacity of the left lower lobe measuring up to 4.7 x 1.8 cm. This may reflect pneumonia or aspiration pneumonitis in the appropriate clinical setting however short-term follow-up chest CT recommended to exclude progressive abnormality. 4. Trace left pleural effusion. 5. Prior granulomatous disease. Ordered Studies 12/18/18 00:05 CT angio chest PE protocol Urgent Hospital Course (1) Shortness of breath: Acute hypoxic respiratory failure secondary to interstitial lung disease exacerbation/left lung pneumonia: Acute on chronic diastolic heart failure Possible aspiration Pneumonia As per daughter, anxiety contributing to respiratory symptoms On CPAP q HS at baseline Continue IV Zosyn, Nebs.. Plan to transition to Augmentin upon discharge to complete 10 day course Completed prednisone course Blood Cx: No growth to date Patient/family prefers no aggressive measures, procedures Repeat CXR: Consistent with congestive failure, left lung base consolidation, trace pleural effusions ECHO: EF 55 to 60% Grade 2 diastolic dysfunction, mild concentric LVH, mild MR Pulmonology on board Continue Increased PO Lasix to 40 mg twice daily Monitor I's and O's, daily weight Continue to wean off supplemental oxygen as able Speech and Swallow eval done 2 step: Patient requires 3 L of oxygen during ambulation and 2 L of oxygen with rest Continue CPAP at bedtime Repeat CXR:Improving infiltrate left base. We will also need outpatient CT chest in 6-8 weeks upon discharge HTN Stable Continue Amlodipine, metoprolol Pacemaker in situ H/O sick sinus syndrome S/P pacemaker placement Continue Metoprolol Obstructive sleep apnea on CPAP QHS Dyslipidemia Continue atorvastatin Anxiety mood disorder Klonopin PRN On zoloft GERD Continue PPI DVT Px: Lovenox SQ Code Status Full code Disposition Plan to discharge home today Family: Ms. Jeni Cross. Contact [phone] Total Time Total Time Spent Total Time Spent (In Minutes): 40 minutes Total Time Includes: Examination of the Patient, Discharge Planning, Medication Reconciliation, Communication With Other Providers and Other Discharge Plan Discharge Items Patient Disposition: Home - Home Health Services Reason For Visit: RESP FAILURE Discharge Diagnosis: Acute hypoxic respiratory failure Left Lung Pneumonia Acute on chronic diastolic heart failure Discharge Goals: Decrease discomfort, Improve disease control and Improve function Activity: Resume your previous activity Exercise/Sports: Gradually increase as tolerated Non-emergency contact: Primary Care Provider and Salesperson [employer] Call non-emergency contact if: you have any medication questions, your symptoms worsen, your pain is not controlled, your pain is worsening, your pain is unusual for you, your pain is concerning for you and you have a fever Follow-up/Referrals: Baltazar Strong MD [Primary Care Provider] - Diet: Carb Consistent or DM2 and Heart Healthy Fluids: 2000ml (8 cups) Addtl Provider Instructions: Follow-up with Dr. Quinonez for primary care service on December 29, 2018 at 11:00 AM Follow-up with your ferris wheel operator in 2-4 weeks as advised Follow-up with your deck mate as per your recommendations from your primary care physician Get CT chest in 6 to 8 weeks to ensure resolution of pneumonia Complete the antibiotic course as prescribed Seek immediate medical attention if your symptoms reoccur or worsen Use Oxygen via nasal cannula 2 liters at rest and 3 liters with ambulation/exertion Call your Primary Care doctor if any of the following symptoms or problems start or get worse: * Shortness of breath or difficulty breathing * Wake up at night short of breath * Chest pain * Cough * Swelling of your hands, feet, or legs * More fatigued or tired with your normal activity * Palpitations - sudden fast heart beats WEIGHT * Weigh yourself every morning after using the bathroom. * Use the same scale. * Wear the same amount of clothing. * Write your weight down on a chart. * Call your Primary Care doctor if you gain more than 2-3 pounds in 1-2 days. MEDICATIONS * Use this discharge instruction sheet for medication instructions. * Take your medications at the time your doctor ordered. * Do not skip a dose of your medicines. * If you miss a dose of medicine, take it as soon as possible, but DO NOT DOUBLE A DOSE. * Read your medicine information when you get home. * Know all of the side effects of your medicine. If in doubt, ask your pharmacist * Call your Primary Care doctor's office if you have any side effects. * Be sure all of your doctors know what medicine and herbs you take (including cold, flu, and herbal medicine). Take the following with you to your follow-up doctor appointments: * Weight Chart * Medication List * List of questions Do not drink excessive alcohol, beer or wine. Prescriptions: New Lactobacillus acidoph-L.bulgar [Floranex] 1 million cell Tablet 4 tab PO QIDM 10 Days Qty: 40 RF: 0 amoxicillin-pot clavulanate [Augmentin] 875-125 mg tablet 1 tab PO BID Qty: 13 RF: 0 Continued furosemide 40 mg tablet 40 mg PO QAM RF: 0 atorvastatin 80 mg tablet 80 mg PO QAM RF: 0 metoprolol succinate 50 mg tablet extended release 24 hr 75 mg PO DAILY RF: 0 clonazepam 0.5 mg tablet 0.5 mg PO 5XD PRN (Reason: Anxiety) RF: 0 sertraline 100 mg tablet 50 mg PO QID RF: 0 loperamide [Imodium A-D] 2 mg Tablet 2 mg PO Q3H PRN (Reason: Diarrhea) RF: 0 omeprazole 40 mg capsule,delayed release(DR/EC) 40 mg PO QAM RF: 0 acetaminophen [Tylenol Extra Strength] 500 mg Tablet 1,000 mg PO UD PRN (Reason: Pain) RF: 0 potassium chloride 20 mEq tablet,ER particles/crystals 20 meq PO QAM RF: 0 amlodipine 10 mg tablet 10 mg PO QAM RF: 0 nitroglycerin [Nitrostat] 0.4 mg Tablet, Sublingual 0.4 mg sublingual UD RF: 0 mirtazapine 15 mg tablet 15 mg PO HS RF: 0 oxycodone 5 mg tablet 5 mg PO Q4H PRN (Reason: Pain) RF: 0 ProAir RespiClick 90 mcg/actuation Aerosol Powdr Breath Activated 1 inh INHALATION QID PRN (Reason: asthma) RF: 0 Stiolto Respimat 2.5-2.5 mcg/actuation Mist 2 puff INHALATION QAM RF: 0 Stand-Alone Forms: [facility] Discharge Orders: Discharge Order (Routine); Ordered 12/23/18 Ordered By: Manoj Hung Admission Data Admit Date/Time: 12/17/18 22:59 Attending Provider: Manoj Hung Admit Provider: Oscar Amaya Primary Care Provider: Baltazar Strong Other Providers: Oscar Amaya ; Galo Bowling ; Pretty Melton Service: Telemetry Medical Other Interventions: Discharge Summary Assessment (RN) Last Done: 12/23/18 13:55 Pending Studies at Discharge: No DC Date/Time DO NOT enter until pt leaves facility: 12/23/18 15:30
[2018-12-23] MEDS ORDERED: LACTOBACILLUS ACIDOPHILUS (FLORANEX) TAB PO SCH (17:00)
== END 2018-12-23 15:30 | disposition home health service (06) | DRG 177 ==
LOC: ED 15:04 → 2W 22:59 → SUATTDRO 22:59 → 2W 23:48